=== PATIENT | male | born 1975 | race African-American/Black ===

== ENCOUNTER 2023-09-12 11:47 | Outpatient (AMB) | payer OTHER, SELFPAY ==
--- NOTE | 2023-09-12 12:12 | HO.NEPHOV ---
HPI HPI Comments History of Present Illness Details I had the privilege of seeing Gregorio in follow-up of his donor renal transplant on 06/06/23 . 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 He had no panel reactive antibody. He underwent induction with Thymoglobulin. He had delayed graft function needing for treatments of renal replacement therapy posttransplant. His stent was removed on 06/25/2023. His serum creatinine was 2.6 on 08/01/2023. CMV status of the donor and recipient were positive. EBV status of donor and recipient were positive. Hepatitis B core antibody was negative for donor and recipient and hepatitis C antibody was negative for donor and recipient.His polyomavirus Status included BK PCR Quantitative <43 plasma, not detected urine 08/05/23. Transplant renal biopsy was done on 07/22 which showed - Mild interstitial inflammation and mild tubulitis, cannot exclude suspicious for acute T-cell mediated rejection. (see comment) with patchy acute tubular injury with reactive/reparative nuclear change. Glomeruli with no significant microvascular inflammation. Had mild interstitial edema, with no significant fibrosis or tubular atrophy. Arteries and arterioles with no significant change. He had Prospera done on 09/06/2023. DSA was negative on 08/21/23. His immunosuppression included envarsus 6mg taken with ketoconazole 200mg qd & myfortic 720/720mg. His prophylaxis therapy includes bactrim qd d/c 12/06/23, mycelex d/c 09/05/23 & valcyte qod d/c 12/06/23.His diabetes remains out of control & has endocrine appointment. His DSA is lower and plan to have transplant biopsy end of November [facility] Medical History (Updated 09/26/23 @ 07:28 by Ricki Porras MD) YEVGENIY (obstructive sleep apnea) Hypertension CHF (congestive heart failure) Asthma A-fib Type 2 diabetes mellitus ESRD (end stage renal disease) Surgical History (Updated 09/12/23 @ 12:45 by Ricki Porras MD) Kidney transplant status Vital Signs 09/12/23 12:13 Height 5 ft 11 in Weight 256 lb BMI 35.7 BP 120/62 Blood Pressure Location Lt brachial Position Sitting Pulse 73 Pulse Source Pulse Oximeter Pulse Oximetry (%) 99 Oxygen Delivery Method Room Air Physical Exam Vital Signs: Last Vital Signs Pulse 73 09/12/23 12:13 BP 120/62 09/12/23 12:13 Pulse Ox 99 09/12/23 12:13 Oxygen Delivery Method Room Air 09/12/23 12:13 BMI result Body Mass Index 35.7 Const General: comfortable and no acute distress Orientation/consciousness: patient oriented x3 HEENT Head: Yes normocephalic Mouth: Normal oral and palatal mucosa present Eyes EOM: EOMs intact bilaterally Neck Neck: Yes supple Resp Auscultation: clear to auscultation bilaterally Cardio Jugular venous distension: no JVD Rate: regular rate GI Palpation (GI): Soft to palpation Auscultation: normal bowel sounds General: Yes no CVA tenderness Back/Spine/Pelvis Back: no CVA tenderness Skin General skin exam: no rashes or lesions noted Neuro General: patient oriented x3 and moves all extremities Extrem General: Yes no pedal edema Assessment & Plan Assessment & Plan (1) Renal transplant recipient: Code(s): Z94.0 - Kidney transplant status (2) Hypertension: Code(s): I10 - Essential (primary) hypertension Qualifiers: Hypertension type: primary hypertension Qualified Code(s): I10 - Essential (primary) hypertension Plan 1. Allograft function: relatively stable; DSA improved; biopsy negative for rejection end of June 2. Immunosuppression: stable; no changes pending levels 3. BP and volume status: stable; no changes 4. Metabolic parameters: potassium had been high --> on resin; monitor; low K diet; some may be due to high glucose 5. Hematologic parameters: hemoglobin is fine; continue to monitor 6. Prophylaxis/infection: stable; no changes 7. Urologic: no active issues 8. Other: ongoing issues with hyperglycemia in spite of increases in insulin; going to follow up with endocrine; needs dietary changes; unable to exercise due to orthopedic issues and pain. Orders: Orders Aspartate Amino Transferase 09/12/23 Z94.0 - Kidney transplant status Alanine Aminotransferase 09/12/23 Z94.0 - Kidney transplant status Electrolytes 09/12/23 Z94.0 - Kidney transplant status Creatinine 09/12/23 Z94.0 - Kidney transplant status Complete Blood Count Auto Diff 09/12/23 Z94.0 - Kidney transplant status Calcium 09/12/23 Z94.0 - Kidney transplant status Blood Urea Nitrogen 09/12/23 Z94.0 - Kidney transplant status Magnesium 09/12/23 Z94.0 - Kidney transplant status Phosphorus 09/12/23 Z94.0 - Kidney transplant status Tacrolimus Prograf 09/12/23 Z94.0 - Kidney transplant status Coding Level of Care Code Est Pt Level 4 (43161) Diagnoses Renal transplant recipient Z94.0 Primary hypertension I10 Hypertension type: primary hypertension Results Reviewed Nephrology Results: No Data to Display
[2023-09-12 12:13] VITALS: BP 120/62; PULSE 73; O2SAT 99; BMI 35.7
== END 2023-09-12 12:59 | disposition home or self-care (01) ==
LOC: HO.HKAS 11:47
PROVIDERS: Visit Provider Internal Medicine Nephrology
DX: Z94.0 Kidney transplant status (principal); I10 Essential (primary) hypertension
CPT/HCPCS: 99214

== ENCOUNTER → 2023-09-12 11:47 | Outpatient (BNVA) | payer OTHER, SELFPAY | PROVIDERS: Visit Provider Internal Medicine Nephrology | DX: I12.0 Hypertensive chronic kidney disease with stage 5 chronic kidney disease or end stage renal disease (principal); E11.21 Type 2 diabetes mellitus with diabetic nephropathy; E11.22 Type 2 diabetes mellitus with diabetic chronic kidney disease; N18.6 End stage renal disease; Z94.0 Kidney transplant status | CPT/HCPCS: 99212 ==

== ENCOUNTER 2023-09-26 10:59 | Outpatient (REF) | payer OTHER, SELFPAY ==
[2023-09-26 16:48] LABS: MANUAL DIFF FLAG NO
[2023-09-26 16:56] LABS: Basophils Percent Auto 0.8 % (0-2); Eosinophils Absolute Auto 0.1 X10*3/uL (0.0-0.4); Eosinophils Percent Auto 1.9 % (0-4); Hematocrit 42.5 % (42.0-52.0); Imm Gran Abs Auto 0.02 X10*3/uL (0.00-0.03); Imm Gran Pct Auto 0.4 % (0.0-0.4); Lymphocytes Absolute Auto 0.7 X10*3/uL (1.2-4.9); Lymphocytes Percent Auto 14.7 % (20-40); Mean Corpuscular HGB Conc 32.9 g/dl (31.0-36.0); Mean Corpuscular Hemoglobin 26.9 pg (27.0-33.0); Mean Corpuscular Volume 81.6 fL (80.0-98.0); Mean Platelet Volume 10.6 fL (9.4-12.4); Monocytes Absolute Auto 0.6 X10*3/uL (0.1-1.2); Monocytes Percent Auto 12.2 % (2-11); Neutrophils Absolute Auto 3.4 x10*3/uL (2.0-8.3); Platelet Count 143 X10*3/uL (160-400); Red Blood Count 5.21 X10*6/uL (4.60-5.80); Red Cell Distribution Width 13.1 % (11.0-16.0); White Blood Count 4.8 X10*3/uL (4.8-10.8)
[2023-09-26 17:07] LABS: Alanine Aminotransferase 54 U/L (0-40); Anion Gap 10 (12-20); Aspartate Amino Transferase 20 U/L (5-37); Blood Urea Nitrogen 44 mg/dL (9-16); Calcium 9.6 mg/dL (8.4-10.2); Carbon Dioxide 22 mmol/L (22-29); Chloride 107 mmol/L (96-108); Estimated Glomerular Filt Rate 28; Magnesium 1.9 mg/dL (1.6-2.6); Phosphorus 3.1 mg/dL (2.7-4.5); Potassium 4.8 mmol/L (3.3-5.1); Sodium 134 mmol/L (135-145)
== END 2023-09-26 11:00 | disposition home or self-care (01) ==
LOC: HO.HKASLDS 10:59
PROVIDERS: Visit Provider Internal Medicine Nephrology
DX: Z94.0 Kidney transplant status (principal)
CPT/HCPCS: 36415; 80051; 80197; 82310; 82565; 83735; 84100; 84450; 84460; 84520; 85025

== ENCOUNTER 2023-10-01 10:10 | Outpatient (AMB) | payer OTHER, SELFPAY ==
[2023-10-01 10:15] VITALS: BP 130/80; PULSE 72; O2SAT 99; BMI 35.3
--- NOTE | 2023-10-01 10:15 | HO.NEPHOV ---
HPI HPI Comments History of Present Illness Details I had the privilege of seeing Gregorio in follow-up of his donor renal transplant on 06/06/23 . 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 He had no panel reactive antibody. He underwent induction with Thymoglobulin. He had delayed graft function needing for treatments of renal replacement therapy post transplant. His stent was removed on 06/25/2023. His serum creatinine was 2.6 on 08/01/2023. CMV status of the donor and recipient were positive. EBV status of donor and recipient were positive. Hepatitis B core antibody was negative for donor and recipient and hepatitis C antibody was negative for donor and recipient.His polyomavirus Status included BK PCR Quantitative <43 plasma, not detected urine 08/05/23. Transplant renal biopsy was done on 07/22 which showed - Mild interstitial inflammation and mild tubulitis, cannot exclude suspicious for acute T-cell mediated rejection. (see comment) with patchy acute tubular injury with reactive/reparative nuclear change. Glomeruli with no significant microvascular inflammation. Had mild interstitial edema, with no significant fibrosis or tubular atrophy. Arteries and arterioles with no significant change. He had Prospera done on 09/06/2023. DSA was negative on 08/21/23. His immunosuppression included envarsus 6mg taken with ketoconazole 200mg qd & myfortic 720/720mg. His prophylaxis therapyincludes bactrim qd d/c 12/06/23 (mycelex d/c 09/05/23 )& valcyte qod d/c 12/06/23.His diabetes remains out of control & has endocrine appointment. His DSA is lower and plan to have transplant biopsy end of November. His recent tacrolimus level was 22 ( he had taken medication before lab work). His serum creatinine has gone up marginally. [facility] Medical History YEVGENIY (obstructive sleep apnea) Hypertension CHF (congestive heart failure) Asthma A-fib Type 2 diabetes mellitus ESRD (end stage renal disease) Surgical History Kidney transplant status Social History (Updated 10/01/23 @ 10:25 by Melissa Garcia MA) Alcohol intake: former Patient Tobacco Use Status: Former Tobacco user Use of substances other than those prescribed or required for medical reasons: No Vital Signs 10/01/23 10:15 Height 5 ft 11 in Weight 253 lb 4 oz BMI 35.3 BP 130/80 Blood Pressure Location Rt brachial Position Sitting Pulse 72 Pulse Source Pulse Oximeter Pulse Oximetry (%) 99 Oxygen Delivery Method Room Air Physical Exam Vital Signs: Last Vital Signs Pulse 72 10/01/23 10:15 BP 140/80 H 10/01/23 10:15 Pulse Ox 99 10/01/23 10:15 Oxygen Delivery Method Room Air 10/01/23 10:15 BMI result Body Mass Index 35.3 Const General: comfortable and no acute distress Orientation/consciousness: patient oriented x3 HEENT Head: Yes normocephalic Mouth: Normal oral and palatal mucosa present Eyes EOM: EOMs intact bilaterally Neck Neck: Yes supple Resp Auscultation: clear to auscultation bilaterally Cardio Jugular venous distension: no JVD Rate: regular rate GI Palpation (GI): Soft to palpation Auscultation: normal bowel sounds General: Yes no CVA tenderness Back/Spine/Pelvis Back: no CVA tenderness Skin General skin exam: no rashes or lesions noted Neuro General: patient oriented x3 and moves all extremities Extrem General: Yes no pedal edema Assessment & Plan Assessment & Plan (1) Hypertension: Code(s): I10 - Essential (primary) hypertension Qualifiers: Hypertension type: primary hypertension Qualified Code(s): I10 - Essential (primary) hypertension (2) Renal transplant recipient: Code(s): Z94.0 - Kidney transplant status Plan 1. Allograft function: Serum creatinine up. Labs ALEK; DSA improved; biopsy negative for rejection end of June; ? high tacrolimus levels. Management is based on evolving data 2. Immunosuppression: stable; changes pending levels 3. BP and volume status: stable; no changes 4. Metabolic parameters: potassium had been high --> on resin; monitor; low K diet; some may be due to high glucose 5. Hematologic parameters: hemoglobin is fine; continue to monitor 6. Prophylaxis/infection: stable; no changes 7. Urologic: no active issues 8. Other: ongoing issues with hyperglycemia in spite of increases in insulin; going to follow up with endocrine; needs dietary changes; unable to exercise due to orthopedic issues and pain. Orders: Orders Creatinine Today I10 - Essential (primary) hypertension, Z94.0 - Kidney transplant status Electrolytes Today I10 - Essential (primary) hypertension, Z94.0 - Kidney transplant status Tacrolimus Prograf Today I10 - Essential (primary) hypertension, Z94.0 - Kidney transplant status Blood Urea Nitrogen Today I10 - Essential (primary) hypertension, Z94.0 - Kidney transplant status Coding Level of Care Code Est Pt Level 4 (58255) Diagnoses Primary hypertension I10 Hypertension type: primary hypertension Renal transplant recipient Z94.0 Results Reviewed Nephrology Results: Hgb 14.0 g/dl (14.0-18.0) 09/26/23 WBC 4.8 X10*3/uL (4.8-10.8) 09/26/23 Plt Count 143 X10*3/uL (160-400) L 09/26/23 Sodium 134 mmol/L (135-145) L 09/26/23 Potassium 4.8 mmol/L (3.3-5.1) 09/26/23 Chloride 107 mmol/L (96-108) 09/26/23 Carbon Dioxide 22 mmol/L (22-29) 09/26/23 BUN 44 mg/dL (9-16) H 09/26/23 Creatinine 2.44 mg/dL (0.5-1.4) H 09/26/23 Calcium 9.6 mg/dL (8.4-10.2) 09/26/23 Phosphorus 3.1 mg/dL (2.7-4.5) 09/26/23
== END 2023-10-01 10:49 | disposition home or self-care (01) ==
PROVIDERS: Visit Provider Internal Medicine Nephrology
DX: I10 Essential (primary) hypertension (principal); Z94.0 Kidney transplant status
CPT/HCPCS: 99214

== ENCOUNTER → 2023-10-01 10:10 | Outpatient (BNVA) | payer OTHER, SELFPAY | PROVIDERS: Visit Provider Internal Medicine Nephrology | DX: I10 Essential (primary) hypertension (principal); Z94.0 Kidney transplant status | CPT/HCPCS: 99212 ==

== ENCOUNTER 2023-10-02 09:26 | Outpatient (REF) | payer OTHER, SELFPAY ==
[2023-10-02 17:46] LABS: Anion Gap 14 (12-20); Blood Urea Nitrogen 51 mg/dL (9-16); Carbon Dioxide 20 mmol/L (22-29); Chloride 106 mmol/L (96-108); Estimated Glomerular Filt Rate 26; Sodium 134 mmol/L (135-145)
[2023-10-02 17:56] LABS: Potassium 6.2 mmol/L (3.3-5.1)
[2023-10-03 12:28] LABS: Tacrolimus Prograf 11.6 mcg/L
== END 2023-10-02 09:27 | disposition home or self-care (01) ==
LOC: HO.HKASLDS 09:26
PROVIDERS: Visit Provider Internal Medicine Nephrology
DX: I10 Essential (primary) hypertension (principal); Z94.0 Kidney transplant status
CPT/HCPCS: 36415; 80051; 80197; 82565; 84520

== ENCOUNTER 2023-10-16 11:12 | Outpatient (REF) | payer OTHER, SELFPAY ==
[2023-10-16 17:15] LABS: Anion Gap 11 (12-20); Blood Urea Nitrogen 33 mg/dL (9-16); Carbon Dioxide 21 mmol/L (22-29); Chloride 111 mmol/L (96-108); Estimated Glomerular Filt Rate 32; Potassium 5.2 mmol/L (3.3-5.1); Sodium 138 mmol/L (135-145)
[2023-10-17 09:54] LABS: Tacrolimus Prograf 6.5 mcg/L
== END 2023-10-16 11:13 | disposition home or self-care (01) ==
LOC: HO.HKASLDS 11:12
PROVIDERS: Visit Provider Internal Medicine Nephrology
DX: I10 Essential (primary) hypertension (principal); Z94.0 Kidney transplant status; E87.5 Hyperkalemia
CPT/HCPCS: 36415; 80051; 80197; 82565; 84520

== ENCOUNTER 2023-10-22 09:30 | Outpatient (AMB) | payer OTHER, SELFPAY ==
[2023-10-22 09:39] VITALS: BP 130/88; PULSE 85; O2SAT 99; BMI 35.9
--- NOTE | 2023-10-22 09:39 | HO.NEPHOV ---
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 He had no panel reactive antibody. He underwent induction with Thymoglobulin. He had delayed graft function needing for treatments of renal replacement therapy post transplant. His stent was removed on 06/25/2023. His serum creatinine was 2.6 on 08/01/2023. CMV status of the donor and recipient were positive. EBV status of donor and recipient were positive. Hepatitis B core antibody was negative for donor and recipient and hepatitis C antibody was negative for donor and recipient.His polyomavirus Status included BK PCR Quantitative <43 plasma, not detected urine 08/05/23. Transplant renal biopsy was done on 07/22 which showed - Mild interstitial inflammation and mild tubulitis, cannot exclude suspicious for acute T-cell mediated rejection. (see comment) with patchy acute tubular injury with reactive/reparative nuclear change. Glomeruli with no significant microvascular inflammation. Had mild interstitial edema, with no significant fibrosis or tubular atrophy. Arteries and arterioles with no significant change. He had Prospera done on 09/06/2023. DSA was negative on 08/21/23. His immunosuppression included envarsus 6mg taken with ketoconazole 200mg qd & myfortic 720/720mg. His prophylaxis therapyincludes bactrim qd d/c 12/06/23 (mycelex d/c 09/05/23 )& valcyte qod d/c 12/06/23.His diabetes remains out of control & has endocrine appointment. His DSA is lower and plan to have transplant biopsy end of November. His recent tacrolimus level is better. His serum creatinine improved. He has been having middle ear symptoms. [facility] Medical History YEVGENIY (obstructive sleep apnea) Hypertension CHF (congestive heart failure) Asthma A-fib Type 2 diabetes mellitus ESRD (end stage renal disease) Surgical History Kidney transplant status Social History Alcohol intake: former Patient Tobacco Use Status: Former Tobacco user Physical Exam Vital Signs: Last Vital Signs Pulse 85 10/22/23 09:39 BP 130/88 10/22/23 09:39 Pulse Ox 99 10/22/23 09:39 Oxygen Delivery Method Room Air 10/22/23 09:39 BMI result Body Mass Index 35.9 Const General: comfortable and no acute distress Orientation/consciousness: patient oriented x3 HEENT Head: Yes normocephalic Mouth: Normal oral and palatal mucosa present Eyes EOM: EOMs intact bilaterally Neck Neck: Yes supple Resp Auscultation: clear to auscultation bilaterally Cardio Jugular venous distension: no JVD Rate: regular rate GI Palpation (GI): Soft to palpation Auscultation: normal bowel sounds General: Yes no CVA tenderness Back/Spine/Pelvis Back: no CVA tenderness Skin General skin exam: no rashes or lesions noted Neuro General: patient oriented x3 and moves all extremities Extrem General: Yes no pedal edema Results Reviewed Nephrology Results: Hgb 14.0 g/dl (14.0-18.0) 09/26/23 WBC 4.8 X10*3/uL (4.8-10.8) 09/26/23 Plt Count 143 X10*3/uL (160-400) L 09/26/23 Sodium 138 mmol/L (135-145) 10/16/23 Potassium 5.2 mmol/L (3.3-5.1) H 10/16/23 Chloride 111 mmol/L (96-108) H 10/16/23 Carbon Dioxide 21 mmol/L (22-29) L 10/16/23 BUN 33 mg/dL (9-16) H 10/16/23 Creatinine 2.18 mg/dL (0.5-1.4) H 10/16/23 Calcium 9.6 mg/dL (8.4-10.2) 09/26/23 Phosphorus 3.1 mg/dL (2.7-4.5) 09/26/23 Assessment & Plan Assessment & Plan (1) Hyperkalemia: Code(s): E87.5 - Hyperkalemia Category: Medical (2) Hypertension: Code(s): I10 - Essential (primary) hypertension Category: Medical Qualifiers: Hypertension type: primary hypertension Qualified Code(s): I10 - Essential (primary) hypertension (3) Renal transplant recipient: Code(s): Z94.0 - Kidney transplant status Category: Surgical Plan 1. Allograft function: Serum creatinine improved; DSA improved; biopsy negative for rejection end of June; Tacrolimus levels ordered for next week. Management is based on evolving data 2. Immunosuppression: Increased tacro to 5 mg ; changes pending levels 3. BP and volume status: stable; no changes 4. Metabolic parameters: potassium had been high --> on resin; monitor; low K diet; some may be due to high glucose 5. Hematologic parameters: hemoglobin is fine; continue to monitor 6. Prophylaxis/infection: stable; no changes- will be D/Errol next month 7. Urologic: no active issues 8. Other: ongoing issues with hyperglycemia in spite of increases in insulin; going to follow up with endocrine; needs dietary changes; unable to exercise due to orthopedic issues and pain. Orders: Orders Blood Urea Nitrogen Today E87.5 - Hyperkalemia, I10 - Essential (primary) hypertension, Z94.0 - Kidney transplant status Creatinine Today E87.5 - Hyperkalemia, I10 - Essential (primary) hypertension, Z94.0 - Kidney transplant status Tacrolimus Prograf 1 Week E87.5 - Hyperkalemia, I10 - Essential (primary) hypertension, Z94.0 - Kidney transplant status Calcium Today E87.5 - Hyperkalemia, I10 - Essential (primary) hypertension, Z94.0 - Kidney transplant status Electrolytes Today E87.5 - Hyperkalemia, I10 - Essential (primary) hypertension, Z94.0 - Kidney transplant status Coding Level of Care Code Est Pt Level 4 (27690) Diagnoses Hyperkalemia E87.5 Primary hypertension I10 Hypertension type: primary hypertension Renal transplant recipient Z94.0
== END 2023-10-22 10:05 | disposition home or self-care (01) ==
PROVIDERS: Visit Provider Internal Medicine Nephrology
DX: E87.5 Hyperkalemia (principal); I10 Essential (primary) hypertension; Z94.0 Kidney transplant status
CPT/HCPCS: 99214

== ENCOUNTER → 2023-10-22 09:30 | Outpatient (BNVA) | payer OTHER, SELFPAY | PROVIDERS: Visit Provider Internal Medicine Nephrology | DX: E87.5 Hyperkalemia (principal); I10 Essential (primary) hypertension; Z94.0 Kidney transplant status | CPT/HCPCS: 99212 ==

== ENCOUNTER 2023-10-31 14:32 | Outpatient (REF) | payer OTHER, SELFPAY ==
[2023-10-31 18:07] LABS: Anion Gap 13 (12-20); Blood Urea Nitrogen 45 mg/dL (9-16); Calcium 9.8 mg/dL (8.4-10.2); Carbon Dioxide 17 mmol/L (22-29); Chloride 107 mmol/L (96-108); Estimated Glomerular Filt Rate 33; Potassium 5.2 mmol/L (3.3-5.1); Sodium 132 mmol/L (135-145)
[2023-11-01 11:44] LABS: Tacrolimus Prograf 7.5 mcg/L
== END 2023-10-31 14:33 | disposition home or self-care (01) ==
LOC: HO.HKASLDS 14:32
PROVIDERS: Visit Provider Internal Medicine Nephrology
DX: Z94.0 Kidney transplant status (principal); I10 Essential (primary) hypertension; E87.5 Hyperkalemia
CPT/HCPCS: 36415; 80051; 80197; 82310; 82565; 84520

== ENCOUNTER 2023-11-05 09:52 | Outpatient (AMB) | payer OTHER, SELFPAY ==
--- NOTE | 2023-11-05 10:12 | HO.NEPHOV ---
Vital Signs 11/05/23 10:13 Height 5 ft 11 in Weight 259 lb 6 oz BMI 36.2 BP 136/82 Blood Pressure Location Rt brachial Position Sitting Pulse 88 Pulse Source Pulse Oximeter Pulse Oximetry (%) 99 Oxygen Delivery Method Room Air Intake Visit Reasons: Transplant patient, 2 wks follow up/ Confirmed Resolution Analyst Required: No Accompanied by: Self / Same As Patient Allergies amoxicillin Allergy (Mild, Verified 11/05/23 10:15) Unknown lisinopril Allergy (Mild, Verified 11/05/23 10:15) Unknown Seasonal Allergies Allergy (Mild, Verified 11/05/23 10:15) Unknown HPI Comments Details: I had the privilege of seeing Gregorio in follow-up of his donor renal transplant on 06/06/23 . 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 He had no panel reactive antibody. He underwent induction with Thymoglobulin. He had delayed graft function needing for treatments of renal replacement therapy post transplant. His stent was removed on 06/25/2023. His serum creatinine was 2.6 on 08/01/2023. CMV status of the donor and recipient were positive. EBV status of donor and recipient were positive. Hepatitis B core antibody was negative for donor and recipient and hepatitis C antibody was negative for donor and recipient.His polyomavirus Status included BK PCR Quantitative <43 plasma, not detected urine 08/05/23. Transplant renal biopsy was done on 07/22 which showed - Mild interstitial inflammation and mild tubulitis, cannot exclude suspicious for acute T-cell mediated rejection. (see comment) with patchy acute tubular injury with reactive/reparative nuclear change. Glomeruli with no significant microvascular inflammation. Had mild interstitial edema, with no significant fibrosis or tubular atrophy. Arteries and arterioles with no significant change. He had Prospera done on 09/06/2023. DSA was negative on 08/21/23. His immunosuppression included envarsus 6mg taken with ketoconazole 200mg qd & myfortic 720/720mg. His prophylaxis therapyincludes bactrim qd d/c 12/06/23 (mycelex d/c 09/05/23 )& valcyte qod d/c 12/06/23.His diabetes remains out of control & has endocrine appointment. His DSA is lower and plan to have transplant biopsy end of November. His recent tacrolimus level is better. His serum creatinine improved. [facility] Medical History YEVGENIY (obstructive sleep apnea) Hypertension CHF (congestive heart failure) Asthma A-fib Type 2 diabetes mellitus ESRD (end stage renal disease) Surgical History Kidney transplant status Social History Alcohol intake: former Patient Tobacco Use Status: Former Tobacco user Physical Exam Vital Signs: Last Vital Signs Pulse 88 11/05/23 10:13 BP 136/82 11/05/23 10:13 Pulse Ox 99 11/05/23 10:13 Oxygen Delivery Method Room Air 11/05/23 10:13 BMI result Body Mass Index 36.2 Const General: comfortable and no acute distress Orientation/consciousness: patient oriented x3 HEENT Head: Yes normocephalic Mouth: Normal oral and palatal mucosa present Eyes EOM: EOMs intact bilaterally Neck Neck: Yes supple Resp Auscultation: clear to auscultation bilaterally Cardio Jugular venous distension: no JVD Rate: regular rate GI Palpation (GI): Soft to palpation Auscultation: normal bowel sounds General: Yes no CVA tenderness Back/Spine/Pelvis Back: no CVA tenderness Skin General skin exam: no rashes or lesions noted Neuro General: patient oriented x3 and moves all extremities Extrem General: Yes no pedal edema Results Reviewed Nephrology Results: Hgb 14.0 g/dl (14.0-18.0) 09/26/23 WBC 4.8 X10*3/uL (4.8-10.8) 09/26/23 Plt Count 143 X10*3/uL (160-400) L 09/26/23 Sodium 132 mmol/L (135-145) L 10/31/23 Potassium 5.2 mmol/L (3.3-5.1) H 10/31/23 Chloride 107 mmol/L (96-108) 10/31/23 Carbon Dioxide 17 mmol/L (22-29) L 10/31/23 BUN 45 mg/dL (9-16) H 10/31/23 Creatinine 2.13 mg/dL (0.5-1.4) H 10/31/23 Calcium 9.8 mg/dL (8.4-10.2) 10/31/23 Phosphorus 3.1 mg/dL (2.7-4.5) 09/26/23 Assessment & Plan Assessment & Plan (1) Renal transplant recipient: Code(s): Z94.0 - Kidney transplant status Category: Surgical (2) Hypertension: Code(s): I10 - Essential (primary) hypertension Category: Medical Qualifiers: Hypertension type: primary hypertension Qualified Code(s): I10 - Essential (primary) hypertension (3) Hyperkalemia: Code(s): E87.5 - Hyperkalemia Category: Medical (4) Metabolic acidosis: Code(s): E87.20 - Acidosis, unspecified Category: Medical Plan 1. Allograft function: Serum creatinine improved/ stable; DSA improved; Shall repeat at next visit; biopsy negative for rejection end of June; Tacrolimus levels ordered again. Management is based on evolving data 2. Immunosuppression: C/W tacro @ 5 mg ; changes pending levels 3. BP and volume status: stable; no changes 4. Metabolic parameters: potassium had been high --> on resin; monitor; low K diet; some may be due to high glucose 5. Hematologic parameters: hemoglobin is fine; continue to monitor 6. Prophylaxis/infection: stable; no changes- will be D/Errol next month 7. Urologic: no active issues 8. Other: ongoing issues with hyperglycemia in spite of increases in insulin; going to follow up with endocrine; needs dietary changes; unable to exercise due to orthopedic issues and pain. Orders: Orders Other Ref Test - Misc Today E87.20 - Acidosis, unspecified, E87.5 - Hyperkalemia, I10 - Essential (primary) hypertension, Z94.0 - Kidney transplant status Complete Blood Count Auto Diff Today E87.20 - Acidosis, unspecified, E87.5 - Hyperkalemia, I10 - Essential (primary) hypertension, Z94.0 - Kidney transplant status Blood Urea Nitrogen Today E87.20 - Acidosis, unspecified, E87.5 - Hyperkalemia, I10 - Essential (primary) hypertension, Z94.0 - Kidney transplant status Electrolytes Today E87.20 - Acidosis, unspecified, E87.5 - Hyperkalemia, I10 - Essential (primary) hypertension, Z94.0 - Kidney transplant status Calcium Today E87.20 - Acidosis, unspecified, E87.5 - Hyperkalemia, I10 - Essential (primary) hypertension, Z94.0 - Kidney transplant status Tacrolimus Prograf Today E87.20 - Acidosis, unspecified, E87.5 - Hyperkalemia, I10 - Essential (primary) hypertension, Z94.0 - Kidney transplant status Magnesium Today E87.20 - Acidosis, unspecified, E87.5 - Hyperkalemia, I10 - Essential (primary) hypertension, Z94.0 - Kidney transplant status Phosphorus Today E87.20 - Acidosis, unspecified, E87.5 - Hyperkalemia, I10 - Essential (primary) hypertension, Z94.0 - Kidney transplant status Creatinine Today E87.20 - Acidosis, unspecified, E87.5 - Hyperkalemia, I10 - Essential (primary) hypertension, Z94.0 - Kidney transplant status Coding Level of Care Code Est Pt Level 4 (10565) Diagnoses Renal transplant recipient Z94.0 Primary hypertension I10 Hypertension type: primary hypertension Hyperkalemia E87.5 Metabolic acidosis E87.20
[2023-11-05 10:13] VITALS: BP 136/82; PULSE 88; O2SAT 99; BMI 36.2
== END 2023-11-05 10:30 | disposition home or self-care (01) ==
PROVIDERS: Visit Provider Internal Medicine Nephrology
DX: Z94.0 Kidney transplant status (principal); I10 Essential (primary) hypertension; E87.5 Hyperkalemia; E87.20 Acidosis, unspecified
CPT/HCPCS: 99214

== ENCOUNTER → 2023-11-05 09:52 | Outpatient (BNVA) | payer OTHER, SELFPAY | PROVIDERS: Visit Provider Internal Medicine Nephrology | DX: I12.0 Hypertensive chronic kidney disease with stage 5 chronic kidney disease or end stage renal disease (principal); E11.22 Type 2 diabetes mellitus with diabetic chronic kidney disease; N18.6 End stage renal disease; E87.5 Hyperkalemia; E87.20 Acidosis, unspecified; Z94.0 Kidney transplant status | CPT/HCPCS: 99212 ==

== ENCOUNTER 2023-11-21 11:08 | Outpatient (REF) | payer OTHER, SELFPAY ==
[2023-11-21 17:23] LABS: MANUAL DIFF FLAG NO
[2023-11-21 17:33] LABS: Basophils Percent Auto 0.6 % (0-2); Eosinophils Absolute Auto 0.1 X10*3/uL (0.0-0.4); Eosinophils Percent Auto 1.7 % (0-4); Hemoglobin 16.4 g/dl (14.0-18.0); Imm Gran Abs Auto 0.01 X10*3/uL (0.00-0.03); Imm Gran Pct Auto 0.2 % (0.0-0.4); Lymphocytes Absolute Auto 0.7 X10*3/uL (1.2-4.9); Lymphocytes Percent Auto 12.5 % (20-40); Mean Corpuscular HGB Conc 32.8 g/dl (31.0-36.0); Mean Corpuscular Hemoglobin 26.4 pg (27.0-33.0); Mean Corpuscular Volume 80.4 fL (80.0-98.0); Mean Platelet Volume 10.6 fL (9.4-12.4); Monocytes Absolute Auto 0.5 X10*3/uL (0.1-1.2); Monocytes Percent Auto 9.5 % (2-11); Neutrophils Percent Auto 75.5 % (45-73); Platelet Count 143 X10*3/uL (160-400); Red Blood Count 6.22 X10*6/uL (4.60-5.80); Red Cell Distribution Width 14.3 % (11.0-16.0); White Blood Count 5.4 X10*3/uL (4.8-10.8)
[2023-11-21 17:53] LABS: Anion Gap 14 (12-20); Blood Urea Nitrogen 36 mg/dL (9-16); Calcium 9.8 mg/dL (8.4-10.2); Carbon Dioxide 18 mmol/L (22-29); Chloride 109 mmol/L (96-108); Estimated Glomerular Filt Rate 33; Magnesium 1.8 mg/dL (1.6-2.6); Phosphorus 2.5 mg/dL (2.7-4.5); Potassium 4.8 mmol/L (3.3-5.1); Sodium 136 mmol/L (135-145)
== END 2023-11-21 11:09 | disposition home or self-care (01) ==
LOC: HO.HKASLDS 11:08
PROVIDERS: Visit Provider Internal Medicine Nephrology
DX: E87.20 Acidosis, unspecified (principal); E87.5 Hyperkalemia; I10 Essential (primary) hypertension; Z94.0 Kidney transplant status
CPT/HCPCS: 36415; 80051; 80197; 82310; 82565; 83735; 84100; 84520; 85025

== ENCOUNTER 2023-11-26 11:52 | Outpatient (AMB) | payer OTHER, SELFPAY ==
--- NOTE | 2023-11-26 12:21 | HO.NEPHOV_ITS ---
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 He had no panel reactive antibody. He underwent induction with Thymoglobulin. He had delayed graft function needing for treatments of renal replacement therapy post transplant. His stent was removed on 06/25/2023. His serum creatinine was 2.6 on 08/01/2023. CMV status of the donor and recipient were positive. EBV status of donor and recipient were positive. Hepatitis B core antibody was negative for donor and recipient and hepatitis C antibody was negative for donor and recipient.His polyomavirus Status included BK PCR Quantitative <43 plasma, not detected urine 08/05/23. Transplant renal biopsy was done on 07/22 which showed - Mild interstitial inflammation and mild tubulitis, cannot exclude suspicious for acute T-cell mediated rejection. (see comment) with patchy acute tubular injury with reactive/reparative nuclear change. Glomeruli with no significant microvascular inflammation. Had mild interstitial edema, with no significant fibrosis or tubular atrophy. Arteries and arterioles with no significant change. He had Prospera done on 09/06/2023. DSA was negative on 08/21/23. His immunosuppression included envarsus 6mg taken with ketoconazole 200mg qd & myfortic 720/720mg. His prophylaxis therapyincludes bactrim qd d/c 12/06/23 (mycelex d/c 09/05/23 )& valcyte qod d/c 12/06/23.His diabetes remains out of control & has endocrine appointment. His DSA is lower and plan to have transplant biopsy end of November. His recent tacrolimus level is better. His serum creatinine has improved and is stable. [facility] Medical History YEVGENIY (obstructive sleep apnea) Hypertension CHF (congestive heart failure) Asthma A-fib Type 2 diabetes mellitus ESRD (end stage renal disease) Surgical History Kidney transplant status Social History Alcohol intake: former Patient Tobacco Use Status: Former Tobacco user Physical Exam Vital Signs: Last Vital Signs BP 110/70 11/26/23 12:23 Pulse Ox 97 11/26/23 12:23 Oxygen Delivery Method Room Air 11/26/23 12:23 BMI result Body Mass Index 36.0 Const General: comfortable and no acute distress Orientation/consciousness: patient oriented x3 HEENT Head: Yes normocephalic Mouth: Normal oral and palatal mucosa present Eyes EOM: EOMs intact bilaterally Neck Neck: Yes supple Resp Auscultation: clear to auscultation bilaterally Cardio Jugular venous distension: no JVD Rate: regular rate GI Palpation (GI): Soft to palpation Auscultation: normal bowel sounds General: Yes no CVA tenderness Back/Spine/Pelvis Back: no CVA tenderness Skin General skin exam: no rashes or lesions noted Neuro General: patient oriented x3 and moves all extremities Extrem General: Yes no pedal edema Results Reviewed Nephrology Results: Hgb 16.4 g/dl (14.0-18.0) 11/21/23 WBC 5.4 X10*3/uL (4.8-10.8) 11/21/23 Plt Count 143 X10*3/uL (160-400) L 11/21/23 Sodium 136 mmol/L (135-145) 11/21/23 Potassium 4.8 mmol/L (3.3-5.1) 11/21/23 Chloride 109 mmol/L (96-108) H 11/21/23 Carbon Dioxide 18 mmol/L (22-29) L 11/21/23 BUN 36 mg/dL (9-16) H 11/21/23 Creatinine 2.13 mg/dL (0.5-1.4) H 11/21/23 Calcium 9.8 mg/dL (8.4-10.2) 11/21/23 Phosphorus 2.5 mg/dL (2.7-4.5) L 11/21/23 Assessment & Plan Assessment & Plan (1) Metabolic acidosis: Code(s): E87.20 - Acidosis, unspecified Category: Medical (2) Hypertension: Code(s): I10 - Essential (primary) hypertension Category: Medical Qualifiers: Hypertension type: primary hypertension Qualified Code(s): I10 - Essential (primary) hypertension (3) Renal transplant recipient: Code(s): Z94.0 - Kidney transplant status Category: Surgical Plan 1. Allograft function: Serum creatinine improved/ stable; DSA improved; Shall repeat at next visit; biopsy negative for rejection end of June; Renal biopsy end of the month. Tacrolimus levels ordered again. Management is based on evolving data 2. Immunosuppression: C/W tacro @ 5 mg ; changes pending levels 3. BP and volume status: stable; no changes 4. Metabolic parameters: potassium had been high --> on resin; monitor; low K diet; some may be due to high glucose 5. Hematologic parameters: hemoglobin is fine; continue to monitor 6. Prophylaxis/infection: stable; no changes- will be D/Errol next month 7. Urologic: no active issues 8. Other: ongoing issues with hyperglycemia in spite of increases in insulin; going to follow up with endocrine; needs dietary changes; unable to exercise due to orthopedic issues and pain. Orders: Orders Tacrolimus Prograf Today E87.20 - Acidosis, unspecified, I10 - Essential (primary) hypertension, Z94.0 - Kidney transplant status Blood Urea Nitrogen Today E87.20 - Acidosis, unspecified, I10 - Essential (primary) hypertension, Z94.0 - Kidney transplant status Electrolytes Today E87.20 - Acidosis, unspecified, I10 - Essential (primary) hypertension, Z94.0 - Kidney transplant status Complete Blood Count Auto Diff Today E87.20 - Acidosis, unspecified, I10 - Essential (primary) hypertension, Z94.0 - Kidney transplant status Other Ref Test - Misc Today E87.20 - Acidosis, unspecified, I10 - Essential (primary) hypertension, Z94.0 - Kidney transplant status Creatinine Today E87.20 - Acidosis, unspecified, I10 - Essential (primary) hypertension, Z94.0 - Kidney transplant status Prothrombin Time INR Today E87.20 - Acidosis, unspecified, I10 - Essential (primary) hypertension, Z94.0 - Kidney transplant status Coding Level of Care Code Est Pt Level 4 (49392) Diagnoses Metabolic acidosis E87.20 Primary hypertension I10 Hypertension type: primary hypertension Renal transplant recipient Z94.0
[2023-11-26 12:23] VITALS: BP 110/70; O2SAT 97; BMI 36.0
== END 2023-11-26 12:42 | disposition home or self-care (01) ==
PROVIDERS: PCP Physician Assistant; Visit Provider Internal Medicine Nephrology
DX: E87.20 Acidosis, unspecified (principal); I10 Essential (primary) hypertension; Z94.0 Kidney transplant status
CPT/HCPCS: 99214

== ENCOUNTER → 2023-11-26 11:52 | Outpatient (BNVA) | payer OTHER, SELFPAY | PROVIDERS: Visit Provider Internal Medicine Nephrology | DX: E87.20 Acidosis, unspecified (principal); I10 Essential (primary) hypertension; Z94.0 Kidney transplant status | CPT/HCPCS: 99212 ==

== ENCOUNTER 2023-12-05 10:58 | Outpatient (REF) | payer OTHER, SELFPAY ==
[2023-12-05 14:28] LABS: MANUAL DIFF FLAG NO
[2023-12-05 14:52] LABS: Anion Gap 9 (12-20); Blood Urea Nitrogen 33 mg/dL (9-16); Carbon Dioxide 23 mmol/L (22-29); Chloride 106 mmol/L (96-108); Estimated Glomerular Filt Rate 31; Potassium 4.8 mmol/L (3.3-5.1); Sodium 133 mmol/L (135-145)
[2023-12-05 14:56] LABS: INTERNATIONAL NORM RATIO 1.1 (0.9-1.1); Prothrombin Time 12.8 SEC (11.1-13.3)
[2023-12-05 14:57] LABS: Basophils Percent Auto 0.7 % (0-2); Eosinophils Absolute Auto 0.1 X10*3/uL (0.0-0.4); Eosinophils Percent Auto 1.3 % (0-4); Hematocrit 49.1 % (42.0-52.0); Hemoglobin 16.6 g/dl (14.0-18.0); Imm Gran Abs Auto 0.05 X10*3/uL (0.00-0.03); Imm Gran Pct Auto 0.8 % (0.0-0.4); Lymphocytes Absolute Auto 0.8 X10*3/uL (1.2-4.9); Lymphocytes Percent Auto 12.6 % (20-40); Mean Corpuscular HGB Conc 33.8 g/dl (31.0-36.0); Mean Corpuscular Hemoglobin 26.8 pg (27.0-33.0); Mean Corpuscular Volume 79.2 fL (80.0-98.0); Mean Platelet Volume 10.4 fL (9.4-12.4); Monocytes Absolute Auto 0.6 X10*3/uL (0.1-1.2); Monocytes Percent Auto 9.5 % (2-11); Neutrophils Absolute Auto 4.6 x10*3/uL (2.0-8.3); Neutrophils Percent Auto 75.1 % (45-73); Platelet Count 163 X10*3/uL (160-400); Red Cell Distribution Width 14.7 % (11.0-16.0); White Blood Count 6.1 X10*3/uL (4.8-10.8)
[2023-12-07 09:28] LABS: Tacrolimus Prograf 9.3 mcg/L
== END 2023-12-05 10:59 | disposition home or self-care (01) ==
LOC: HO.HKASLDS 10:58
PROVIDERS: Visit Provider Internal Medicine Nephrology
DX: E87.20 Acidosis, unspecified (principal); I10 Essential (primary) hypertension; Z94.0 Kidney transplant status
CPT/HCPCS: 36415; 80051; 80197; 82565; 84520; 85025; 85610

== ENCOUNTER 2023-12-10 11:45 | Outpatient (AMB) | payer OTHER, SELFPAY ==
[2023-12-10 12:19] VITALS: BP 132/80; PULSE 102; O2SAT 98; BMI 35.3
--- NOTE | 2023-12-10 12:19 | HO.NEPHOV_ITS ---
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 He had no panel reactive antibody. He underwent induction with Thymoglobulin. He had delayed graft function needing for treatments of renal replacement therapy post transplant. His stent was removed on 06/25/2023. His serum creatinine was 2.6 on 08/01/2023. CMV status of the donor and recipient were positive. EBV status of donor and recipient were positive. Hepatitis B core antibody was negative for donor and recipient and hepatitis C antibody was negative for donor and recipient.His polyomavirus Status included BK PCR Quantitative <43 plasma, not detected urine 08/05/23. Transplant renal biopsy was done on 07/22 which showed - Mild interstitial inflammation and mild tubulitis, cannot exclude suspicious for acute T-cell mediated rejection. (see comment) with patchy acute tubular injury with reactive/reparative nuclear change. Glomeruli with no significant microvascular inflammation. Had mild interstitial edema, with no significant fibrosis or tubular atrophy. Arteries and arterioles with no significant change. He had Prospera done on 09/06/2023. DSA was negative on 08/21/23. His i mmunosuppression included envarsus 6mg taken with ketoconazole 200mg qd & myfortic 720/720mg. His prophylaxis therapyincludes bactrim qd d/c 12/06/23 (mycelex d/c 09/05/23 )& valcyte qod d/c 12/06/23.His diabetes remains out of control & has endocrine appointment. His DSA is lower and plan to have transplant biopsy end of November. His recent tacrolimus level is better. His serum creatinine has improved and is stable. [facility] Medical History YEVGENIY (obstructive sleep apnea) Hypertension CHF (congestive heart failure) Asthma A-fib Type 2 diabetes mellitus ESRD (end stage renal disease) Surgical History Kidney transplant status Social History Alcohol intake: former Patient Tobacco Use Status: Former Tobacco user Physical Exam Vital Signs: Last Vital Signs Pulse 102 H 12/10/23 12:19 BP 132/80 12/10/23 12:19 Pulse Ox 98 12/10/23 12:19 Oxygen Delivery Method Room Air 12/10/23 12:19 BMI result Body Mass Index 35.3 Const General: comfortable and no acute distress Orientation/consciousness: patient oriented x3 HEENT Head: Yes normocephalic Mouth: Normal oral and palatal mucosa present Eyes EOM: EOMs intact bilaterally Neck Neck: Yes supple Resp Auscultation: clear to auscultation bilaterally Cardio Jugular venous distension: no JVD Rate: regular rate GI Palpation (GI): Soft to palpation Auscultation: normal bowel sounds General: Yes no CVA tenderness Back/Spine/Pelvis Back: no CVA tenderness Skin General skin exam: no rashes or lesions noted Neuro General: patient oriented x3 and moves all extremities Extrem General: Yes no pedal edema Results Reviewed Nephrology Results: Hgb 16.6 g/dl (14.0-18.0) 12/05/23 WBC 6.1 X10*3/uL (4.8-10.8) 12/05/23 Plt Count 163 X10*3/uL (160-400) 12/05/23 Sodium 133 mmol/L (135-145) L 12/05/23 Potassium 4.8 mmol/L (3.3-5.1) 12/05/23 Chloride 106 mmol/L (96-108) 12/05/23 Carbon Dioxide 23 mmol/L (22-29) 12/05/23 BUN 33 mg/dL (9-16) H 12/05/23 Creatinine 2.24 mg/dL (0.5-1.4) H 12/05/23 Calcium 9.8 mg/dL (8.4-10.2) 11/21/23 Phosphorus 2.5 mg/dL (2.7-4.5) L 11/21/23 Assessment & Plan Assessment & Plan (1) Renal transplant recipient: Code(s): Z94.0 - Kidney transplant status Category: Surgical (2) Hypertension: Code(s): I10 - Essential (primary) hypertension Category: Medical Qualifiers: Hypertension type: primary hypertension Qualified Code(s): I10 - Essential (primary) hypertension (3) Hyperkalemia: Code(s): E87.5 - Hyperkalemia Category: Medical (4) Metabolic acidosis: Code(s): E87.20 - Acidosis, unspecified Category: Medical Plan 1. Allograft function: Serum creatinine improved/ stable; DSA negative ; biopsy negative for rejection end of June; Hold Renal biopsy for now. Tacrolimus levels ordered again. Management is based on evolving data 2. Immunosuppression: C/W tacro @ 5 mg ; changes pending levels 3. BP and volume status: stable; no changes 4. Metabolic parameters: potassium had been high --> on resin; monitor; low K diet; some may be due to high glucose 5. Hematologic parameters: hemoglobin is fine; continue to monitor 6. Prophylaxis/infection: stable; D/Errol Valcyte and Bactrim 7. Urologic: no active issues Orders: Orders Complete Blood Count Auto Diff Today E87.20 - Acidosis, unspecified, E87.5 - Hyperkalemia, I10 - Essential (primary) hypertension, Z94.0 - Kidney transplant status Creatinine Today E87.20 - Acidosis, unspecified, E87.5 - Hyperkalemia, I10 - Essential (primary) hypertension, Z94.0 - Kidney transplant status Blood Urea Nitrogen Today E87.20 - Acidosis, unspecified, E87.5 - Hyperkalemia, I10 - Essential (primary) hypertension, Z94.0 - Kidney transplant status Electrolytes Today E87.20 - Acidosis, unspecified, E87.5 - Hyperkalemia, I10 - Essential (primary) hypertension, Z94.0 - Kidney transplant status Phosphorus Today E87.20 - Acidosis, unspecified, E87.5 - Hyperkalemia, I10 - Essential (primary) hypertension, Z94.0 - Kidney transplant status Tacrolimus Prograf Today E87.20 - Acidosis, unspecified, E87.5 - Hyperkalemia, I10 - Essential (primary) hypertension, Z94.0 - Kidney transplant status Calcium Today E87.20 - Acidosis, unspecified, E87.5 - Hyperkalemia, I10 - Essential (primary) hypertension, Z94.0 - Kidney transplant status Magnesium Today E87.20 - Acidosis, unspecified, E87.5 - Hyperkalemia, I10 - Essential (primary) hypertension, Z94.0 - Kidney transplant status Coding Level of Care Code Est Pt Level 4 (71517) Diagnoses Renal transplant recipient Z94.0 Primary hypertension I10 Hypertension type: primary hypertension Hyperkalemia E87.5 Metabolic acidosis E87.20
== END 2023-12-10 12:33 | disposition home or self-care (01) ==
PROVIDERS: PCP Physician Assistant; Visit Provider Internal Medicine Nephrology
DX: Z94.0 Kidney transplant status (principal); I10 Essential (primary) hypertension; E87.5 Hyperkalemia; E87.20 Acidosis, unspecified
CPT/HCPCS: 99214

== ENCOUNTER → 2023-12-10 11:45 | Outpatient (BNVA) | payer OTHER, SELFPAY | PROVIDERS: PCP Physician Assistant; Visit Provider Internal Medicine Nephrology | DX: I10 Essential (primary) hypertension (principal); E87.5 Hyperkalemia; E87.20 Acidosis, unspecified; Z94.0 Kidney transplant status | CPT/HCPCS: 99212 ==

== ENCOUNTER 2024-01-02 13:06 | Outpatient (REF) | payer OTHER, SELFPAY ==
[2024-01-02 17:26] LABS: MANUAL DIFF FLAG NO
[2024-01-02 17:47] LABS: Basophils Absolute Auto 0.1 X10*3/uL (0.0-0.2); Basophils Percent Auto 0.8 % (0-2); Eosinophils Absolute Auto 0.3 X10*3/uL (0.0-0.4); Eosinophils Percent Auto 4.3 % (0-4); Hematocrit 46.5 % (42.0-52.0); Hemoglobin 15.6 g/dl (14.0-18.0); Imm Gran Abs Auto 0.04 X10*3/uL (0.00-0.03); Imm Gran Pct Auto 0.6 % (0.0-0.4); Lymphocytes Absolute Auto 0.9 X10*3/uL (1.2-4.9); Lymphocytes Percent Auto 13.8 % (20-40); Mean Corpuscular HGB Conc 33.5 g/dl (31.0-36.0); Mean Corpuscular Hemoglobin 26.9 pg (27.0-33.0); Mean Platelet Volume 11.2 fL (9.4-12.4); Monocytes Absolute Auto 0.9 X10*3/uL (0.1-1.2); Monocytes Percent Auto 14.7 % (2-11); Neutrophils Absolute Auto 4.2 x10*3/uL (2.0-8.3); Neutrophils Percent Auto 65.8 % (45-73); Platelet Count 232 X10*3/uL (160-400); Red Blood Count 5.81 X10*6/uL (4.60-5.80); White Blood Count 6.3 X10*3/uL (4.8-10.8)
[2024-01-02 18:00] LABS: Blood Urea Nitrogen 31 mg/dL (9-16); Estimated Glomerular Filt Rate 29; Magnesium 1.8 mg/dL (1.6-2.6); Phosphorus 2.6 mg/dL (2.7-4.5)
[2024-01-03 12:29] LABS: Tacrolimus Prograf 15.7 mcg/L
== END 2024-01-02 13:07 | disposition home or self-care (01) ==
LOC: HO.HKASLDS 13:06
PROVIDERS: Visit Provider Internal Medicine Nephrology
DX: I10 Essential (primary) hypertension (principal); E87.5 Hyperkalemia; E87.20 Acidosis, unspecified; Z94.0 Kidney transplant status
CPT/HCPCS: 36415; 80197; 82310; 82565; 83735; 84100; 84520; 85025

== ENCOUNTER 2024-01-09 11:01 | Outpatient (AMB) | payer OTHER, SELFPAY ==
--- NOTE | 2024-01-09 11:02 | HO.NEPHOV_ITS ---
Vital Signs 01/09/24 11:03 Height 5 ft 11 in Weight 247 lb BMI 34.4 BP 132/68 Blood Pressure Location Rt brachial Position Sitting Pulse 82 Pulse Source Pulse Oximeter Pulse Oximetry (%) 99 Oxygen Delivery Method Room Air Intake Visit Reasons: 1 mon follow up/ Conf Bi Technical Lead Required: No Accompanied by: Self / Same As Patient Allergies amoxicillin Allergy (Mild, Verified 01/09/24 11:05) Unknown lisinopril Allergy (Mild, Verified 01/09/24 11:05) Unknown Seasonal Allergies Allergy (Mild, Verified 01/09/24 11:05) Unknown HPI Comments Details: I had the privilege of seeing Gregorio in follow-up of his donor renal transplant on 06/06/23 . 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 He had no panel reactive antibody. He underwent induction with Thymoglobulin. He had delayed graft function needing for treatments of renal replacement therapy post transplant. His stent was removed on 06/25/2023. His serum creatinine was 2.6 on 08/01/2023. CMV status of the donor and recipient were positive. EBV status of donor and recipient were positive. Hepatitis B core antibody was negative for donor and recipient and hepatitis C antibody was negative for donor and recipient.His polyomavirus Status included BK PCR Quantitative <43 plasma, not detected urine 08/05/23. Transplant renal biopsy was done on 07/22 which showed - Mild interstitial inflammation and mild tubulitis, cannot exclude suspicious for acute T-cell mediated rejection. (see comment) with patchy acute tubular injury with reactive/reparative nuclear change. Glomeruli with no significant microvascular inflammation. Had mild interstitial edema, with no significant fibrosis or tubular atrophy. Arteries and arterioles with no significant change. He had Prospera done on 09/06/2023. DSA was negative on 08/21/23. His immunosuppression included envarsus 6mg taken with ketoconazole 200mg qd & myfortic 720/720mg. His prophylaxis therapy includeed bactrim qd d/kylee 12/06/23 (mycelex d/kylee 09/05/23 )& valcyte qod d/kylee 12/06/23. His recent tacrolimus level is better. His serum creatinine has improved and is stable. [facility] Medical History YEVGENIY (obstructive sleep apnea) Hypertension CHF (congestive heart failure) Asthma A-fib Type 2 diabetes mellitus ESRD (end stage renal disease) Surgical History Kidney transplant status Social History Alcohol intake: former Patient Tobacco Use Status: Former Tobacco user Physical Exam Vital Signs: Last Vital Signs Pulse 82 01/09/24 11:03 BP 132/68 01/09/24 11:03 Pulse Ox 99 01/09/24 11:03 Oxygen Delivery Method Room Air 01/09/24 11:03 BMI result Body Mass Index 34.4 Const General: comfortable and no acute distress Orientation/consciousness: patient oriented x3 HEENT Head: Yes normocephalic Mouth: Normal oral and palatal mucosa present Eyes EOM: EOMs intact bilaterally Resp Auscultation: clear to auscultation bilaterally Cardio Jugular venous distension: no JVD Rate: regular rate GI Palpation (GI): Soft to palpation Auscultation: normal bowel sounds General: Yes no CVA tenderness Back/Spine/Pelvis Back: no CVA tenderness Skin General skin exam: no rashes or lesions noted Neuro General: patient oriented x3 and moves all extremities Extrem General: Yes no pedal edema Results Reviewed Nephrology Results: Hgb 15.6 g/dl (14.0-18.0) 01/02/24 WBC 6.3 X10*3/uL (4.8-10.8) 01/02/24 Plt Count 232 X10*3/uL (160-400) 01/02/24 Sodium 133 mmol/L (135-145) L 12/05/23 Potassium 4.8 mmol/L (3.3-5.1) 12/05/23 Chloride 106 mmol/L (96-108) 12/05/23 Carbon Dioxide 23 mmol/L (22-29) 12/05/23 BUN 31 mg/dL (9-16) H 01/02/24 Creatinine 2.36 mg/dL (0.5-1.4) H 01/02/24 Calcium 10.0 mg/dL (8.4-10.2) 01/02/24 Phosphorus 2.6 mg/dL (2.7-4.5) L 01/02/24 Assessment & Plan Assessment & Plan (1) Renal transplant recipient: Code(s): Z94.0 - Kidney transplant status Category: Surgical (2) Hypertension: Code(s): I10 - Essential (primary) hypertension Category: Medical Qualifiers: Hypertension type: primary hypertension Qualified Code(s): I10 - Essential (primary) hypertension (3) Hyperkalemia: Code(s): E87.5 - Hyperkalemia Category: Medical (4) Metabolic acidosis: Code(s): E87.20 - Acidosis, unspecified Category: Medical Plan 1. Allograft function: Serum creatinine improved stable; DSA negative ; biopsy negative for rejection end of June; Hold Renal biopsy for now. Tacrolimus levels ordered again after reducing dose to 4 mg daily. Management is based on evolving data 2. Immunosuppression: C/W tacro @ 4 mg ; changes pending levels 3. BP and volume status: stable; no changes 4. Metabolic parameters: potassium had been high --> on resin; monitor; low K diet; some may be due to high glucose 5. Hematologic parameters: hemoglobin is fine; continue to monitor 6. Prophylaxis/infection: stable; D/Kylee Valcyte and Bactrim 7. Urologic: no active issues Last Prospera low risk for rejection Orders: Orders Tacrolimus Prograf 1 Month E87.20 - Acidosis, unspecified, E87.5 - Hyperkalemia, I10 - Essential (primary) hypertension, Z94.0 - Kidney transplant status Complete Blood Count Auto Diff 1 Month E87.20 - Acidosis, unspecified, E87.5 - Hyperkalemia, I10 - Essential (primary) hypertension, Z94.0 - Kidney transplant status Creatinine 1 Month E87.20 - Acidosis, unspecified, E87.5 - Hyperkalemia, I10 - Essential (primary) hypertension, Z94.0 - Kidney transplant status Electrolytes 1 Month E87.20 - Acidosis, unspecified, E87.5 - Hyperkalemia, I10 - Essential (primary) hypertension, Z94.0 - Kidney transplant status Phosphorus 1 Month E87.20 - Acidosis, unspecified, E87.5 - Hyperkalemia, I10 - Essential (primary) hypertension, Z94.0 - Kidney transplant status Tacrolimus Prograf Today Z94.0 - Kidney transplant status Blood Urea Nitrogen 1 Month E87.20 - Acidosis, unspecified, E87.5 - Hyperkal emia, I10 - Essential (primary) hypertension, Z94.0 - Kidney transplant status Calcium 1 Month E87.20 - Acidosis, unspecified, E87.5 - Hyperkalemia, I10 - Essential (primary) hypertension, Z94.0 - Kidney transplant status Magnesium 1 Month E87.20 - Acidosis, unspecified, E87.5 - Hyperkalemia, I10 - Essential (primary) hypertension, Z94.0 - Kidney transplant status Medications: Changed From gabapentin 200 mg PO TID To gabapentin 200 mg (2 x 100 mg) PO TID 30 days 180 caps 3RF Coding Level of Care Code Est Pt Level 4 (69597) Diagnoses Renal transplant recipient Z94.0 Primary hypertension I10 Hypertension type: primary hypertension Hyperkalemia E87.5 Metabolic acidosis E87.20
[2024-01-09 11:03] VITALS: BP 132/68; PULSE 82; O2SAT 99; BMI 34.4
== END 2024-01-09 11:50 | disposition home or self-care (01) ==
PROVIDERS: PCP Physician Assistant; Visit Provider Internal Medicine Nephrology
DX: Z94.0 Kidney transplant status (principal); I10 Essential (primary) hypertension; E87.5 Hyperkalemia; E87.20 Acidosis, unspecified
CPT/HCPCS: 99214

== ENCOUNTER → 2024-01-09 11:01 | Outpatient (BNVA) | payer OTHER, SELFPAY | PROVIDERS: PCP Physician Assistant; Visit Provider Internal Medicine Nephrology | DX: E11.21 Type 2 diabetes mellitus with diabetic nephropathy (principal); I10 Essential (primary) hypertension; E87.5 Hyperkalemia; E87.20 Acidosis, unspecified; Z94.0 Kidney transplant status | CPT/HCPCS: 99212 ==

== ENCOUNTER 2024-01-16 13:54 | Outpatient (REF) | payer OTHER, SELFPAY ==
[2024-01-18 10:34] LABS: Tacrolimus Prograf 7.9 mcg/L
== END 2024-01-16 13:55 | disposition home or self-care (01) ==
LOC: HO.HKASLDS 13:54
PROVIDERS: Visit Provider Internal Medicine Nephrology
DX: Z94.0 Kidney transplant status (principal)
CPT/HCPCS: 36415; 80197

== ENCOUNTER 2024-01-30 13:12 | Outpatient (REF) | payer OTHER, SELFPAY ==
[2024-01-30 17:41] LABS: MANUAL DIFF FLAG NO
[2024-01-30 17:57] LABS: Basophils Percent Auto 0.5 % (0-2); Eosinophils Absolute Auto 0.1 X10*3/uL (0.0-0.4); Eosinophils Percent Auto 1.6 % (0-4); Hematocrit 46.6 % (42.0-52.0); Hemoglobin 15.5 g/dl (14.0-18.0); Imm Gran Abs Auto 0.02 X10*3/uL (0.00-0.03); Imm Gran Pct Auto 0.3 % (0.0-0.4); Lymphocytes Absolute Auto 0.9 X10*3/uL (1.2-4.9); Lymphocytes Percent Auto 13.8 % (20-40); Mean Corpuscular HGB Conc 33.3 g/dl (31.0-36.0); Mean Corpuscular Hemoglobin 26.8 pg (27.0-33.0); Mean Corpuscular Volume 80.5 fL (80.0-98.0); Mean Platelet Volume 11.4 fL (9.4-12.4); Monocytes Absolute Auto 0.7 X10*3/uL (0.1-1.2); Monocytes Percent Auto 11.1 % (2-11); Neutrophils Absolute Auto 4.5 x10*3/uL (2.0-8.3); Neutrophils Percent Auto 72.7 % (45-73); Platelet Count 168 X10*3/uL (160-400); Red Blood Count 5.79 X10*6/uL (4.60-5.80); Red Cell Distribution Width 14.2 % (11.0-16.0); White Blood Count 6.2 X10*3/uL (4.8-10.8)
[2024-01-30 18:18] LABS: Anion Gap 12 (12-20); Blood Urea Nitrogen 30 mg/dL (9-16); Calcium 10.1 mg/dL (8.4-10.2); Carbon Dioxide 26 mmol/L (22-29); Chloride 105 mmol/L (96-108); Estimated Glomerular Filt Rate 28; Magnesium 1.8 mg/dL (1.6-2.6); Phosphorus 2.7 mg/dL (2.7-4.5); Potassium 4.4 mmol/L (3.3-5.1); Sodium 139 mmol/L (135-145)
[2024-01-31 11:24] LABS: Tacrolimus Prograf 11.7 mcg/L
== END 2024-01-30 13:13 | disposition home or self-care (01) ==
LOC: HO.HKASLDS 13:12
PROVIDERS: Visit Provider Internal Medicine Nephrology
DX: E87.20 Acidosis, unspecified (principal); E87.5 Hyperkalemia; I10 Essential (primary) hypertension; Z94.0 Kidney transplant status
CPT/HCPCS: 36415; 80051; 80197; 82310; 82565; 83735; 84100; 84520; 85025

== ENCOUNTER 2024-02-06 10:38 | Outpatient (AMB) | payer OTHER, SELFPAY ==
--- NOTE | 2024-02-06 11:04 | HO.NEPHOV ---
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 He had no panel reactive antibody. He underwent induction with Thymoglobulin. He had delayed graft function needing for treatments of renal replacement therapy post transplant. His stent was removed on 06/25/2023. His serum creatinine was 2.6 on 08/01/2023. CMV status of the donor and recipient were positive. EBV status of donor and recipient were positive. Hepatitis B core antibody was negative for donor and recipient and hepatitis C antibody was negative for donor and recipient.His polyomavirus Status included BK PCR Quantitative <43 plasma, not detected urine 08/05/23. Transplant renal biopsy was done on 07/22 which showed - Mild interstitial inflammation and mild tubulitis, cannot exclude suspicious for acute T-cell mediated rejection. (see comment) with patchy acute tubular injury with reactive/reparative nuclear change. Glomeruli with no significant microvascular inflammation. Had mild interstitial edema, with no significant fibrosis or tubular atrophy. Arteries and arterioles with no significant change. He had Prospera done on 09/06/2023. DSA was negative on 08/21/23. His immunosuppression included envarsus 6mg taken with ketoconazole 200mg qd & myfortic 720/720mg. His prophylaxis therapy includeed bactrim qd d/kylee 12/06/23 (mycelex d/kylee 09/05/23 )& valcyte qod d/kylee 12/06/23. His recent tacrolimus level is better. His serum creatinine has improved and is stable. [facility] Medical History YEVGENIY (obstructive sleep apnea) Hypertension CHF (congestive heart failure) Asthma A-fib Type 2 diabetes mellitus ESRD (end stage renal disease) Surgical History Kidney transplant status Social History Alcohol intake: former Patient Tobacco Use Status: Former Tobacco user Review of Systems Const All systems reviewed & are unremarkable except as noted in HPI and below Physical Exam Vital Signs: Last Vital Signs Pulse 100 02/06/24 11:07 BP 122/70 02/06/24 11:07 Pulse Ox 98 02/06/24 11:07 Oxygen Delivery Method Room Air 02/06/24 11:07 BMI result Body Mass Index 34.6 Const General: comfortable and no acute distress Orientation/consciousness: patient oriented x3 HEENT Head: Yes normocephalic Mouth: Normal oral and palatal mucosa present Eyes EOM: EOMs intact bilaterally Neck Neck: Yes supple Resp Auscultation: clear to auscultation bilaterally Cardio Jugular venous distension: no JVD Rate: regular rate GI Palpation (GI): Soft to palpation Auscultation: normal bowel sounds General: Yes no CVA tenderness Back/Spine/Pelvis Back: no CVA tenderness Skin General skin exam: no rashes or lesions noted Neuro General: patient oriented x3 and moves all extremities Extrem General: Yes no pedal edema Results Reviewed Nephrology Results: Hgb 15.5 g/dl (14.0-18.0) 01/30/24 WBC 6.2 X10*3/uL (4.8-10.8) 01/30/24 Plt Count 168 X10*3/uL (160-400) 01/30/24 Sodium 139 mmol/L (135-145) 01/30/24 Potassium 4.4 mmol/L (3.3-5.1) 01/30/24 Chloride 105 mmol/L (96-108) 01/30/24 Carbon Dioxide 26 mmol/L (22-29) 01/30/24 BUN 30 mg/dL (9-16) H 01/30/24 Creatinine 2.43 mg/dL (0.5-1.4) H 01/30/24 Calcium 10.1 mg/dL (8.4-10.2) 01/30/24 Phosphorus 2.7 mg/dL (2.7-4.5) 01/30/24 Assessment & Plan Assessment & Plan (1) Renal transplant recipient: Code(s): Z94.0 - Kidney transplant status Category: Surgical (2) Hypertension: Code(s): I10 - Essential (primary) hypertension Category: Medical Qualifiers: Hypertension type: primary hypertension Qualified Code(s): I10 - Essential (primary) hypertension Plan 1. Allograft function: Serum creatinine improved stable; DSA negative ; biopsy negative for rejection end june; Hold Renal biopsy for now. Tacrolimus levels ordered again after reducing dose to 3 mg daily. Management is based on evolving data 2. Immunosuppression: C/W tacro @ 4 mg ; changes pending levels 3. BP and volume status: stable; no changes 4. Metabolic parameters: potassium had been high --> on resin once a week; monitor; low K diet; some may be due to high glucose 5. Hematologic parameters: hemoglobin is fine; continue to monitor 6. Prophylaxis/infection: stable; D/Kylee Valcyte and Bactrim 7. Urologic: no active issues Orders: Orders Tacrolimus Prograf Today I10 - Essential (primary) hypertension, Z94.0 - Kidney transplant status Complete Blood Count Auto Diff Today I10 - Essential (primary) hypertension, Z94.0 - Kidney transplant status Creatinine Today I10 - Essential (primary) hypertension, Z94.0 - Kidney transplant status Blood Urea Nitrogen Today I10 - Essential (primary) hypertension, Z94.0 - Kidney transplant status Electrolytes Today I10 - Essential (primary) hypertension, Z94.0 - Kidney transplant status Calcium Today I10 - Essential (primary) hypertension, Z94.0 - Kidney transplant status Coding Level of Care Code Est Pt Level 4 (97809) Diagnoses Renal transplant recipient Z94.0 Primary hypertension I10 Hypertension type: primary hypertension
[2024-02-06 11:07] VITALS: BP 122/70; PULSE 100; O2SAT 98; BMI 34.6
== END 2024-02-06 11:27 | disposition home or self-care (01) ==
PROVIDERS: PCP Physician Assistant; Visit Provider Internal Medicine Nephrology
DX: Z94.0 Kidney transplant status (principal); I10 Essential (primary) hypertension
CPT/HCPCS: 99214

== ENCOUNTER → 2024-02-06 10:38 | Outpatient (BNVA) | payer OTHER, SELFPAY | PROVIDERS: PCP Physician Assistant; Visit Provider Internal Medicine Nephrology | DX: I10 Essential (primary) hypertension (principal); Z94.0 Kidney transplant status | CPT/HCPCS: 99212 ==

== ENCOUNTER 2024-02-27 14:10 | Outpatient (REF) | payer OTHER, SELFPAY ==
[2024-02-27 17:46] LABS: MANUAL DIFF FLAG NO
[2024-02-27 18:01] LABS: Basophils Percent Auto 0.6 % (0-2); Eosinophils Absolute Auto 0.2 X10*3/uL (0.0-0.4); Eosinophils Percent Auto 2.2 % (0-4); Hematocrit 44.2 % (42.0-52.0); Hemoglobin 15.1 g/dl (14.0-18.0); Imm Gran Abs Auto 0.04 X10*3/uL (0.00-0.03); Imm Gran Pct Auto 0.6 % (0.0-0.4); Lymphocytes Absolute Auto 0.9 X10*3/uL (1.2-4.9); Lymphocytes Percent Auto 12.6 % (20-40); Mean Corpuscular HGB Conc 34.2 g/dl (31.0-36.0); Mean Corpuscular Hemoglobin 26.9 pg (27.0-33.0); Mean Corpuscular Volume 78.8 fL (80.0-98.0); Mean Platelet Volume 10.9 fL (9.4-12.4); Monocytes Absolute Auto 0.5 X10*3/uL (0.1-1.2); Monocytes Percent Auto 7.6 % (2-11); Neutrophils Absolute Auto 5.2 x10*3/uL (2.0-8.3); Neutrophils Percent Auto 76.4 % (45-73); Platelet Count 172 X10*3/uL (160-400); Red Blood Count 5.61 X10*6/uL (4.60-5.80); Red Cell Distribution Width 13.2 % (11.0-16.0); White Blood Count 6.8 X10*3/uL (4.8-10.8)
[2024-02-27 18:20] LABS: Anion Gap 11 (12-20); Blood Urea Nitrogen 36 mg/dL (9-16); Calcium 9.6 mg/dL (8.4-10.2); Carbon Dioxide 25 mmol/L (22-29); Chloride 100 mmol/L (96-108); Estimated Glomerular Filt Rate 25; Potassium 4.3 mmol/L (3.3-5.1); Sodium 132 mmol/L (135-145)
[2024-02-28 19:08] LABS: Tacrolimus Prograf 7.5 mcg/L
== END 2024-02-27 14:11 | disposition home or self-care (01) ==
LOC: HO.HKASLDS 14:10
PROVIDERS: Visit Provider Internal Medicine Nephrology
DX: I10 Essential (primary) hypertension (principal); Z94.0 Kidney transplant status
CPT/HCPCS: 36415; 80051; 80197; 82310; 82565; 84520; 85025

== ENCOUNTER 2024-03-05 15:01 | Outpatient (AMB) | payer OTHER, SELFPAY ==
[2024-03-05 15:11] VITALS: BP 122/60; PULSE 83; O2SAT 96; BMI 33.9
--- NOTE | 2024-03-05 15:11 | HO.NEPHOV_ITS ---
Vital Signs 03/05/24 15:11 Height 5 ft 11 in Weight 243 lb 6 oz BMI 33.9 BP 122/60 Blood Pressure Location Rt brachial Position Sitting Pulse 83 Pulse Source Pulse Oximeter Pulse Oximetry (%) 96 Oxygen Delivery Method Room Air Intake Visit Reasons: 1 mon transplant follow up- [facility] Snuff Box Finisher Required: No Accompanied by: Self / Same As Patient Allergies amoxicillin Allergy (Mild, Verified 03/05/24 15:13) Unknown lisinopril Allergy (Mild, Verified 03/05/24 15:13) Unknown Seasonal Allergies Allergy (Mild, Verified 03/05/24 15:13) Unknown HPI Comments Details: I had the privilege of seeing Gregorio in follow-up of his donor renal transplant on 06/06/23 . 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 He had no panel reactive antibody. He underwent induction with Thymoglobulin. He had delayed graft function ne [facility] for treatments of renal replacement therapy post transplant. His stent was removed on 06/25/2023. His serum creatinine was 2.6 on 08/01/2023. CMV status of the donor and recipient were positive. EBV status of donor and recipient were positive. Hepatitis B core antibody was negative for donor and recipient and hepatitis C antibody was negative for donor and recipient.His polyomavirus Status included BK PCR Quantitative <43 plasma, not detected urine 08/05/23. Transplant renal biopsy was done on 07/22 which showed - Mild interstitial inflammation and mild tubulitis, cannot exclude suspicious for acute T-cell mediated rejection. (see comment) with patchy acute tubular injury with reactive/reparative nuclear change. Glomeruli with no significant microvascular inflammation. Had mild interstitial edema, with no significant fibrosis or tubular atrophy. Arteries and arterioles with no significant change. He had Prospera done on 09/06/2023. DSA was negative on 08/21/23. His immun osuppression included envarsus 6mg taken with ketoconazole 200mg qd & myfortic 720/720mg. His prophylaxis therapy includeed bactrim qd d/kylee 12/06/23 (mycelex d/kylee 09/05/23 )& valcyte qod d/kylee 12/06/23. His recent tacrolimus level is stable [facility] Medical History YEVGENIY (obstructive sleep apnea) Hypertension CHF (congestive heart failure) Asthma A-fib Type 2 diabetes mellitus ESRD (end stage renal disease) Surgical History Kidney transplant status Social History Alcohol intake: former Patient Tobacco Use Status: Former Tobacco user Review of Systems Const All systems reviewed & are unremarkable except as noted in HPI and below Physical Exam Vital Signs: Last Vital Signs Pulse 83 03/05/24 15:11 BP 122/60 03/05/24 15:11 Pulse Ox 96 03/05/24 15:11 Oxygen Delivery Method Room Air 03/05/24 15:11 BMI result Body Mass Index 33.9 Const General: comfortable and no acute distress Orientation/consciousness: patient oriented x3 HEENT Head: Yes normocephalic Mouth: Normal oral and palatal mucosa present Eyes EOM: EOMs intact bilaterally Neck Neck: Yes supple Resp Auscultation: clear to auscultation bilaterally Cardio Jugular venous distension: no JVD Rate: regular rate GI Palpation (GI): Soft to palpation Auscultation: normal bowel sounds General: Yes no CVA tenderness Back/Spine/Pelvis Back: no CVA tenderness Skin General skin exam: no rashes or lesions noted Neuro General: patient oriented x3 and moves all extremities Extrem General: Yes no pedal edema Results Reviewed Nephrology Results: Hgb 15.1 g/dl (14.0-18.0) 02/27/24 WBC 6.8 X10*3/uL (4.8-10.8) 02/27/24 Plt Count 172 X10*3/uL (160-400) 02/27/24 Sodium 132 mmol/L (135-145) L 02/27/24 Potassium 4.3 mmol/L (3.3-5.1) 02/27/24 Chloride 100 mmol/L (96-108) 02/27/24 Carbon Dioxide 25 mmol/L (22-29) 02/27/24 BUN 36 mg/dL (9-16) H 02/27/24 Creatinine 2.74 mg/dL (0.5-1.4) H 02/27/24 Calcium 9.6 mg/dL (8.4-10.2) 02/27/24 Phosphorus 2.7 mg/dL (2.7-4.5) 01/30/24 Assessment & Plan Assessment & Plan (1) Renal transplant recipient: Code(s): Z94.0 - Kidney transplant status Category: Surgical (2) Hypertension: Code(s): I10 - Essential (primary) hypertension Category: Medical Qualifiers: Hypertension type: primary hypertension Qualified Code(s): I10 - Essential (primary) hypertension Plan 1. Allograft function: Serum creatinine marginally up ; DSA had been negative - repeat ordered ; biopsy negative for rejection end of June; Hold Renal biopsy for now. Tacrolimus levels stable. Management is based on evolving data- may need biopsy 2. Immunosuppression: C/W tacro @ 4 mg ; changes pending levels 3. BP and volume status: stable; no changes 4. Metabolic parameters: potassium had been high --> on resin once a week; monitor; low K diet; some may be due to high glucose 5. Hematologic parameters: hemoglobin is fine; continue to monitor 6. Prophylaxis/infection: stable; D/Kylee Valcyte and Bactrim 7. Urologic: no active issues Orders: Orders Other Ref Test - Misc 3 Weeks Z94.0 - Kidney transplant status Phosphorus 4 Weeks Z94.0 - Kidney transplant status Magnesium 4 Weeks Z94.0 - Kidney transplant status Other Ref Test - Misc 4 Weeks Z94.0 - Kidney transplant status Other Ref Test - Misc 5 Weeks Z94.0 - Kidney transplant status Complete Blood Count Auto Diff 4 Weeks Z94.0 - Kidney transplant status Prothrombin Time INR 4 Weeks Z94.0 - Kidney transplant status Creatinine 4 Weeks Z94.0 - Kidney transplant status Blood Urea Nitrogen 4 Weeks Z94.0 - Kidney transplant status Electrolytes 4 Weeks Z94.0 - Kidney transplant status Calcium 4 Weeks Z94.0 - Kidney transplant status Tacrolimus Prograf 4 Weeks Z94.0 - Kidney transplant status Coding Level of Care Code Est Pt Level 4 (12301) Diagnoses Renal transplant recipient Z94.0 Primary hypertension I10 Hypertension type: primary hypertension
== END 2024-03-05 15:44 | disposition home or self-care (01) ==
PROVIDERS: PCP Physician Assistant; Visit Provider Internal Medicine Nephrology
DX: Z94.0 Kidney transplant status (principal); I10 Essential (primary) hypertension
CPT/HCPCS: 99214

== ENCOUNTER → 2024-03-05 15:01 | Outpatient (BNVA) | payer OTHER, SELFPAY | PROVIDERS: PCP Physician Assistant; Visit Provider Internal Medicine Nephrology | DX: I10 Essential (primary) hypertension (principal); Z94.0 Kidney transplant status | CPT/HCPCS: 99212 ==

== ENCOUNTER 2024-04-02 13:15 | Outpatient (REF) | payer OTHER, SELFPAY ==
[2024-04-02 14:34] LABS: MANUAL DIFF FLAG NO
[2024-04-02 14:38] LABS: Basophils Percent Auto 0.4 % (0-2); Eosinophils Absolute Auto 0.1 X10*3/uL (0.0-0.4); Eosinophils Percent Auto 1.7 % (0-4); Hematocrit 43.7 % (42.0-52.0); Hemoglobin 14.9 g/dl (14.0-18.0); Imm Gran Abs Auto 0.03 X10*3/uL (0.00-0.03); Imm Gran Pct Auto 0.4 % (0.0-0.4); Lymphocytes Absolute Auto 0.9 X10*3/uL (1.2-4.9); Lymphocytes Percent Auto 12.9 % (20-40); Mean Corpuscular HGB Conc 34.1 g/dl (31.0-36.0); Mean Corpuscular Hemoglobin 26.8 pg (27.0-33.0); Mean Corpuscular Volume 78.7 fL (80.0-98.0); Mean Platelet Volume 10.8 fL (9.4-12.4); Monocytes Absolute Auto 0.8 X10*3/uL (0.1-1.2); Monocytes Percent Auto 10.8 % (2-11); Neutrophils Absolute Auto 5.3 x10*3/uL (2.0-8.3); Neutrophils Percent Auto 73.8 % (45-73); Platelet Count 184 X10*3/uL (160-400); Red Blood Count 5.55 X10*6/uL (4.60-5.80); Red Cell Distribution Width 13.8 % (11.0-16.0); White Blood Count 7.2 X10*3/uL (4.8-10.8)
[2024-04-02 14:42] LABS: INTERNATIONAL NORM RATIO 1.1 (0.9-1.1)
[2024-04-02 14:47] LABS: Anion Gap 10 (12-20); Blood Urea Nitrogen 24 mg/dL (9-16); Calcium 9.5 mg/dL (8.4-10.2); Carbon Dioxide 26 mmol/L (22-29); Chloride 104 mmol/L (96-108); Estimated Glomerular Filt Rate 36; Magnesium 1.8 mg/dL (1.6-2.6); Phosphorus 3.1 mg/dL (2.7-4.5); Potassium 4.4 mmol/L (3.3-5.1); Sodium 136 mmol/L (135-145)
[2024-04-04 03:07] LABS: Tacrolimus Prograf 5.2 mcg/L
== END 2024-04-02 13:16 | disposition home or self-care (01) ==
LOC: HO.HKASLDS 13:15
PROVIDERS: Visit Provider Internal Medicine Nephrology
DX: E87.5 Hyperkalemia (principal); I10 Essential (primary) hypertension; Z94.0 Kidney transplant status; E87.20 Acidosis, unspecified; E78.5 Hyperlipidemia, unspecified
CPT/HCPCS: 36415; 80051; 80197; 82310; 82565; 83735; 84100; 84520; 85025; 85610

== ENCOUNTER 2024-04-09 14:21 | Outpatient (AMB) | payer OTHER, SELFPAY ==
--- NOTE | 2024-04-09 14:22 | HO.NEPHOV ---
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 He had no panel reactive antibody. He underwent induction with Thymoglobulin. He had delayed graft function needing for treatments of renal replacement therapy post transplant. His stent was removed on 06/25/2023. His serum creatinine was 2.6 on 08/01/2023. CMV status of the donor and recipient were positive. EBV status of donor and recipient were positive. Hepatitis B core antibody was negative for donor and recipient and hepatitis C antibody was negative for donor and recipient.His polyomavirus Status included BK PCR Quantitative <43 plasma, not detected urine 08/05/23. Transplant renal biopsy was done on 07/22 which showed - Mild interstitial inflammation and mild tubulitis, cannot exclude suspicious for acute T-cell mediated rejection. (see comment) with patchy acute tubular injury with reactive/reparative nuclear change. Glomeruli with no significant microvascular inflammation. Had mild interstitial edema, with no significant fibrosis or tubular atrophy. Arteries and arterioles with no significant change. He had Prospera done on 09/06/2023. DSA was negative on 08/21/23. His immunosuppression included envarsus 6mg taken with ketoconazole 200mg qd & myfortic 720/720mg. His prophylaxis therapy includeed bactrim qd d/yklee 12/06/23 (mycelex d/kylee 09/05/23 )& valcyte qod d/kylee 12/06/23. His BS is improving [facility] Medical History YEVGENIY (obstructive sleep apnea) Hypertension CHF (congestive heart failure) Asthma A-fib Type 2 diabetes mellitus ESRD (end stage renal disease) Surgical History Kidney transplant status Social History Alcohol intake: former Patient Tobacco Use Status: Former Tobacco user Review of Systems Const All systems reviewed & are unremarkable except as noted in HPI and below Physical Exam Vital Signs: Last Vital Signs Pulse 83 04/09/24 14:26 BP 124/82 04/09/24 14:26 Pulse Ox 99 04/09/24 14:26 Oxygen Delivery Method Room Air 04/09/24 14:26 BMI result Body Mass Index 34.4 Const General: comfortable and no acute distress Orientation/consciousness: patient oriented x3 HEENT Head: Yes normocephalic Mouth: Normal oral and palatal mucosa present Eyes EOM: EOMs intact bilaterally Neck Neck: Yes supple Resp Auscultation: clear to auscultation bilaterally Cardio Jugular venous distension: no JVD Rate: regular rate GI Palpation (GI): Soft to palpation Auscultation: normal bowel sounds General: Yes no CVA tenderness Back/Spine/Pelvis Back: no CVA tenderness Skin General skin exam: no rashes or lesions noted Neuro General: patient oriented x3 and moves all extremities Extrem General: Yes no pedal edema Results Reviewed Nephrology Results: Hgb 14.9 g/dl (14.0-18.0) 04/02/24 WBC 7.2 X10*3/uL (4.8-10.8) 04/02/24 Plt Count 184 X10*3/uL (160-400) 04/02/24 Sodium 136 mmol/L (135-145) 04/02/24 Potassium 4.4 mmol/L (3.3-5.1) 04/02/24 Chloride 104 mmol/L (96-108) 04/02/24 Carbon Dioxide 26 mmol/L (22-29) 04/02/24 BUN 24 mg/dL (9-16) H 04/02/24 Creatinine 1.96 mg/dL (0.5-1.4) H 04/02/24 Calcium 9.5 mg/dL (8.4-10.2) 04/02/24 Phosphorus 3.1 mg/dL (2.7-4.5) 04/02/24 Assessment & Plan Assessment & Plan (1) Renal transplant recipient: Code(s): Z94.0 - Kidney transplant status Category: Surgical (2) Hypertension: Code(s): I10 - Essential (primary) hypertension Category: Medical Qualifiers: Hypertension type: primary hypertension Qualified Code(s): I10 - Essential (primary) hypertension Plan 1. Allograft function: Serum creatinine better ; DSA had been negative ; biopsy negative for rejection end of June; Hold Renal biopsy for now. Tacrolimus levels stable. Management is based on evolving data- does not need biopsy now 2. Immunosuppression: C/W tacro @ 3 mg 3. BP and volume status: stable; no changes 4. Metabolic parameters: potassium had been high --> on resin once a week; monitor; low K diet; some may be due to high glucose 5. Hematologic parameters: hemoglobin is fine; continue to monitor 6. Prophylaxis/infection: stable; D/Kylee Valcyte and Bactrim 7. Urologic: no active issues Orders: Orders Tacrolimus Prograf 2 Months Z94.0 - Kidney transplant status Creatinine 2 Months Z94.0 - Kidney transplant status Electrolytes 2 Months Z94.0 - Kidney transplant status Phosphorus 2 Months Z94.0 - Kidney transplant status Magnesium 2 Months Z94.0 - Kidney transplant status Blood Urea Nitrogen 2 Months Z94.0 - Kidney transplant status Calcium 2 Months Z94.0 - Kidney transplant status Other Ref Test - Misc 2 Months Z94.0 - Kidney transplant status Coding Level of Care Code Est Pt Level 4 (06864) Diagnoses Renal transplant recipient Z94.0 Primary hypertension I10 Hypertension type: primary hypertension
[2024-04-09 14:26] VITALS: BP 124/82; PULSE 83; O2SAT 99; BMI 34.4
== END 2024-04-09 14:43 | disposition home or self-care (01) ==
PROVIDERS: PCP Physician Assistant; Visit Provider Internal Medicine Nephrology
DX: Z94.0 Kidney transplant status (principal); I10 Essential (primary) hypertension
CPT/HCPCS: 99214

== ENCOUNTER → 2024-04-09 14:21 | Outpatient (BNVA) | payer OTHER, SELFPAY | PROVIDERS: PCP Physician Assistant; Visit Provider Internal Medicine Nephrology | DX: I10 Essential (primary) hypertension (principal); E11.21 Type 2 diabetes mellitus with diabetic nephropathy; Z94.0 Kidney transplant status | CPT/HCPCS: 99212 ==

== ENCOUNTER 2024-06-05 12:42 | Outpatient (REF) | payer OTHER, SELFPAY ==
[2024-06-05 14:16] LABS: Anion Gap 12 (12-20); Blood Urea Nitrogen 22 mg/dL (9-16); Calcium 9.5 mg/dL (8.4-10.2); Carbon Dioxide 26 mmol/L (22-29); Chloride 102 mmol/L (96-108); Estimated Glomerular Filt Rate 35; Magnesium 1.8 mg/dL (1.6-2.6); Phosphorus 2.9 mg/dL (2.7-4.5); Potassium 4.2 mmol/L (3.3-5.1); Sodium 136 mmol/L (135-145)
[2024-06-06 14:05] LABS: Tacrolimus Prograf 8.2 mcg/L
[2024-06-10 01:34] LABS: BK Virus DNA QN PCR Whole Bld Not Detected Log cps/mL; BK Virus DNA QN PCR Whole Bld Not Detected copies/mL
[2024-06-10 18:04] LABS: BK Virus DNA QL Urine Not Detected (Not Detected)
== END 2024-06-05 12:43 | disposition home or self-care (01) ==
LOC: HO.LAB 12:42
PROVIDERS: Visit Provider Internal Medicine Nephrology
DX: E87.5 Hyperkalemia (principal); I10 Essential (primary) hypertension; Z94.0 Kidney transplant status
CPT/HCPCS: 36415; 80051; 80197; 82310; 82565; 83735; 84100; 84520; 87798; 87799

== ENCOUNTER 2024-06-11 13:42 | Outpatient (AMB) | payer OTHER, SELFPAY ==
--- NOTE | 2024-06-11 14:06 | HO.NEPHOV_ITS ---
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 He had no panel reactive antibody. He underwent induction with Thymoglobulin. He had delayed graft function needi ng for treatments of renal replacement therapy post transplant. His stent was removed on 06/25/2023. His serum creatinine was 2.6 on 08/01/2023. CMV status of the donor and recipient were positive. EBV status of donor and recipient were positive. Hepatitis B core antibody was negative for donor and recipient and hepatitis C antibody was negative for donor and recipient.His polyomavirus Status included BK PCR Quantitative <43 plasma, not detected urine 08/05/23. Transplant renal biopsy was done on 07/22 which showed - Mild interstitial inflammation and mild tubulitis, cannot exclude suspicious for acute T-cell mediated rejection. (see comment) with patchy acute tubular injury with reactive/reparative nuclear change. Glomeruli with no significant microvascular inflammation. Had mild interstitial edema, with no significant fibrosis or tubular atrophy. Arteries and arterioles with no significant change. He had Prospera done on 09/06/2023. DSA was negative on 08/21/23. His immunosu ppression included envarsus 6mg taken with ketoconazole 200mg qd & myfortic 720/720mg. His prophylaxis therapy includeed bactrim qd d/kylee 12/06/23 (mycelex d/kylee 09/05/23 )& valcyte qod d/kylee 12/06/23. His BS is improving [facility] Medical History YEVGENIY (obstructive sleep apnea) Hypertension CHF (congestive heart failure) Asthma A-fib Type 2 diabetes mellitus ESRD (end stage renal disease) Surgical History Kidney transplant status Social History Alcohol intake: former Patient Tobacco Use Status: Former Tobacco user Review of Systems Const All systems reviewed & are unremarkable except as noted in HPI and below Physical Exam Vital Signs: Last Vital Signs BP 110/70 06/11/24 14:08 BMI result Body Mass Index 34.6 Const General: comfortable and no acute distress Orientation/consciousness: patient oriented x3 HEENT Head: Yes normocephalic Mouth: Normal oral and palatal mucosa present Eyes EOM: EOMs intact bilaterally Neck Neck: Yes supple Resp Auscultation: clear to auscultation bilaterally Cardio Jugular venous distension: no JVD Rate: regular rate GI Palpation (GI): Soft to palpation Auscultation: normal bowel sounds General: Yes no CVA tenderness Back/Spine/Pelvis Back: no CVA tenderness Skin General skin exam: no rashes or lesions noted Neuro General: patient oriented x3 and moves all extremities Extrem General: Yes no pedal edema Results Reviewed Nephrology Results: Hgb 14.9 g/dl (14.0-18.0) 04/02/24 WBC 7.2 X10*3/uL (4.8-10.8) 04/02/24 Plt Count 184 X10*3/uL (160-400) 04/02/24 Sodium 136 mmol/L (135-145) 06/05/24 Potassium 4.2 mmol/L (3.3-5.1) 06/05/24 Chloride 102 mmol/L (96-108) 06/05/24 Carbon Dioxide 26 mmol/L (22-29) 06/05/24 BUN 22 mg/dL (9-16) H 06/05/24 Creatinine 2.04 mg/dL (0.5-1.4) H 06/05/24 Calcium 9.5 mg/dL (8.4-10.2) 06/05/24 Phosphorus 2.9 mg/dL (2.7-4.5) 06/05/24 Assessment & Plan Assessment & Plan (1) Renal transplant recipient: Code(s): Z94.0 - Kidney transplant status Category: Surgical (2) Hypertension: Code(s): I10 - Essential (primary) hypertension Category: Medical Qualifiers: Hypertension type: primary hypertension Qualified Code(s): I10 - Essential (primary) hypertension Plan 1. Allograft function: Serum creatinine better ; DSA had been negative ; biopsy negative for rejection end of June; Hold Renal biopsy for now. Tacrolimus levels stable. Management is based on evolving data- does not need biopsy now 2. Immunosuppression: C/W tacro @ 3 mg 3. BP and volume status: stable; no changes 4. Metabolic parameters: potassium had been high --> on resin once a week; monitor; low K diet; some may be due to high glucose 5. Hematologic parameters: hemoglobin is fine; continue to monitor Orders: Orders Complete Blood Count Auto Diff 2 Months I10 - Essential (primary) hypertension, Z94.0 - Kidney transplant status Electrolytes 2 Months I10 - Essential (primary) hypertension, Z94.0 - Kidney transplant status Calcium 2 Months I10 - Essential (primary) hypertension, Z94.0 - Kidney transplant status Phosphorus 2 Months I10 - Essential (primary) hypertension, Z94.0 - Kidney transplant status Magnesium 2 Months I10 - Essential (primary) hypertension, Z94.0 - Kidney transplant status Creatinine 2 Months I10 - Essential (primary) hypertension, Z94.0 - Kidney transplant status Blood Urea Nitrogen 2 Months I10 - Essential (primary) hypertension, Z94.0 - Kidney transplant status Tacrolimus Prograf 2 Months I10 - Essential (primary) hypertension, Z94.0 - Kidney transplant status Coding Level of Care Code Est Pt Level 4 (39295) Diagnoses Renal transplant recipient Z94.0 Primary hypertension I10 Hypertension type: primary hypertension
[2024-06-11 14:08] VITALS: BP 110/70; BMI 34.6
== END 2024-06-11 14:23 | disposition home or self-care (01) ==
PROVIDERS: PCP Physician Assistant; Visit Provider Internal Medicine Nephrology
DX: Z94.0 Kidney transplant status (principal); I10 Essential (primary) hypertension
CPT/HCPCS: 99214

== ENCOUNTER → 2024-06-11 13:42 | Outpatient (BNVA) | payer OTHER, SELFPAY | PROVIDERS: PCP Physician Assistant; Visit Provider Internal Medicine Nephrology | DX: I10 Essential (primary) hypertension (principal); Z94.0 Kidney transplant status | CPT/HCPCS: 99212 ==

== ENCOUNTER 2024-08-06 11:46 | Outpatient (REF) | payer OTHER, SELFPAY ==
--- OUTSIDE RECORDS SUMMARY | 2024-08-06 12:13 | XMS_ITS | Encounter Summary ---
Author Organization [facility], Address [address] [id number] Phone Care Team Providers Care Saas Architect Name Role Phone Herbert Napier MD Primary Care Provider [phone] Encounter Details Date Type Department Care Team (Late st Contact Info) Description 07/30/2023 Documentation Only [facility], [address] [place] [phone] Torrey Loomis MD [address] [place] [phone] Social History Tobacco Use Types Packs/Day Years Used Date Smoking Tobacco: Former Cigarettes Q uit: 08/2018 Smokeless Tobacco: Never Comments:Smoking History Inf o:Every day Alcohol Use Standard Drinks/Week Comments Not Currently 0 (1 standard drink = 0.6 oz pur e alcohol) quit 08/2018 Sex and Gender Information Value Date Recorded Sex Assigned at Not on file Legal Sex Male 4:42 PM EST Gender Identity Not on file Sexual Orientation Not on file documented as of this encounter Plan of Treatment Not on file documented as of this encounter Visit Diagnoses Not on filedocumented in this encounter Care Teams Saas Architect Relationship Specialty Start Date End Date Herbert Napier MD [facility] [address] [place] [address] PCP - General 07/04/20 documented as of this encounter
--- OUTSIDE RECORDS SUMMARY | 2024-08-06 12:13 | XMS_ITS ---
Author Name [facility] Organization Unknown Problems Problem Status Onset Date Problem Type Date of Resoluti on Source Complication of transplanted kidney, unspecified complication active EncounterDiagnosisAct [facility]
--- OUTSIDE RECORDS SUMMARY | 2024-08-06 12:13 | XMS_ITS | Clinical Summary ---
Author Organization [facility] Address [address] [place] [address] Care Team Providers Care Local Company Hazmat Driver Name Role Phone Ricki Porras MD Primary Care Provider [phone] Encounters Date Type Department Care Team Description 06/12/2024 Travel from Last 3 Months Social History Tobacco Use Types Packs/Day Years Used Date Smoking Tobacco: Never Assessed Sex and Gender Information Value Date Recorded Sex Assigned at Male 04/28/2024 10:59 AM EST Gender Identity Male 04/28/2024 10:59 AM EST Sexual Orientation Heterosexual (straight) 04/28 10:59 AM EST Plan of Treatment Health Maintenance Due Date Last Done Comments Hepatitis C Virus Screening 1973 HIV Screening 1986 DTaP/Tdap/Td Vaccines (1 - Tdap) 1992 Pneumococcal Vaccines 50+ (1 of 2 - PCV) 1992 Hepatitis B Vaccines (1 of 3 - Risk Dialysis 4-dose series) 1993 Colonoscopy 2018 Zoster (Shingles) Vaccine (1 of 2) 10/01/2023 Influenza Vaccine 01/23/2024 03/30/2022, , 09/25/2018, Additional history exists COVID-19 Vaccine (6 - 2023-2 5 season) 2024 04/06/2022, 12/08/2021, 04/28/2021, Additional history exists Care Teams Local Company Hazmat Driver Relationship Specialty Start Date End Date Ricki Porras MD [address] [place] [address] Dr Kwok, [place] [address] PCP - General Nephrology 11/21/23
--- OUTSIDE RECORDS SUMMARY | 2024-08-06 12:13 | XMS_ITS | Clinical Summary ---
Author Organization [facility], Address [address] [place] [address] Phone Care Team Providers Care Irrigator Gravity Flow Name Role Phone Herbert Napier MD Primary Care Provider [phone] Allergies Active Allergy Reactions Criticality Noted Date Comments Amoxicillin Itching Low 06/10/2019 Lisinopril Other (see comments) High 06/10/2019 Dry cough Medications fluticasone (FLONASE) 50 MCG/ACT nasal spray Administer 1 spray into each nostril 1 (one) time each day Active Cholecalciferol (VITAMIN D3) 25 MCG (1000 UT) capsule Take 1 capsule by mouth 1 (one) time each day Active albuterol HFA (PROVENTIL HFA;VENTOLIN HFA) 108 (90 Base) MCG/ACT inhaler Comments: Patient Notes: INHALE 1-2 PUFFS INTO LUNGS EVERY 6 HOURS NEEDED FOR DIFFICULTY BREATHING. Duration: 30 Active insulin glargine (LANTUS) 100 UNIT/ML injection Inject 10 Units under the skin 2 (two) times a day Active Insulin Lispro, 1 Unit Dial, 100 UNIT/ML solution pen-injector Inject under the skin 3 (three) times a day Active nitroglycerin (NITROSTAT) 0.4 MG SL tablet as directed Activ e Velphoro 500 MG chewable tablet CRUSH OR CHEW AND SWALLOW 1 TABLET BY MOUTH TWICE A DAY WITH SMALLER MEALS AND 2 TABLETS WITH THE LARGEST MEAL 1 Active Alcohol Swabs (Easy Touch Alcohol Prep Medium) 70 % pads USE TO CHECK BLOOD SUGAR 2 TIMES A DAY DIRECTED 1 Active Blood Glucose Monitoring Suppl (ONE TOUCH ULTRA 2) w/Device kit USE TO TEST BLOOD GLUCOSE 3 TO 5 TIMES DAILY 1 Active gabapentin (NEURONTIN) 100 MG capsule 1 Active OneTouch Ultra test strip TEST GLUCOSE THREE TO FIVE TIMES DAILY 1 Active Lancets (OneTouch Delica Plus [id number]) misc USE TO TEST BLOOD GLUCOSE 3 TO 5 TIMES DAILY 1 Active ibuprofen (ADVIL,MOTRIN) 800 MG tablet Take 1 tablet (800 mg total) by mouth every 8 (eight) hours if needed (pain) 180 tablet 5 2 Active traMADol (Ultram) 50 MG tablet Take 3 tablets (150 mg total) by mouth every 8 (eight) hours if needed for moderate pain 90 tablet 5 2 Active carvedilol (COREG) 25 MG tablet TAKE 2 TABLETS BY MOUTH TWICE DAILY, TAKE WITH FOOD. 120 tablet 11 2 Active apixaban (ELIQUIS) 5 MG tablet Take 5 mg by mouth 2 Active atorvastatin (LIPITOR) 40 MG tablet Take 1 tablet by mouth 2 Active MINOXIDIL PO Take 10 mg by mouth Active losartan (COZAAR) 100 MG tablet TAKE 1 TABLET(100 MG) BY MOUTH 1 TIME EACH DAY 90 tablet 3 3 Active oxyCODONE-aceta minophen (Percocet) 10-325 MG per tablet Take 1 tablet by mouth every 6 (six) hours if needed for moderate pain 120 tablet 3 Active NIFEdipine CC (ADALAT CC) 60 MG 24 hr tablet Take 1 tablet (60 mg total) by mouth 1 (one) time each day 90 tablet 3 4 Active famotidine (PEPCID) 20 MG tablet Take 1 tablet (20 mg total) by mouth 1 (one) time each day 30 tablet 3 4 11/01/19 25 Active Hospital, Clinic, or Other Facility Administered Medication Ordered Dose Route Frequency Start Date End Date Status midazolam (VERSED) injection 2 mgIndications:End stage renal failure on dialysis (HCC) 2 mg IV As needed 06/11/2019 Active lidocaine (XYLOCAINE) 1 % injection 20 mgIndications:End stage renal failure on dialysis (HCC) 20 mg ID As needed 06/11/2019 Active Active Problems Problem Noted Date Diagnosed Date Abscess of prostate 12/04/2022 Anemia 12/04/2022 Asthma 12/04/2022 Atrial fibrillation 12/04/2022 Angina pectoris 12/04/2022 Chronic kidney disease stage 5 due to type 2 diabetes mellitus 12/04/2022 Overview (12/04/2022): on HD on HD Chronic systolic heart failure 12/04/2022 Congestive heart failure 12/04/2022 Dependence on hemodialysis due to end stage juani l disease 12/04/2022 Drug therapy finding 12/04/2022 Dyslipidemia 12/04/2022 Gastroesophageal reflux disease 12/04/2022 H/O: duodenal ulcer 12/04/2022 High risk drug monitoring status 12/04/2022 Pain of knee region 12/04/2022 History of clinical finding in subject Overview (12/04/2022): Pain relevant problem list includes: See below Pain relevant problem list includes: See below Obese class II 12/04/2022 Opioid dependence 12/04/2022 Pulmonary hypertension 12/04/2022 Recurrent urinary tract infection 12/04/2022 Urethral stricture 12/04/2022 Acute nontraumatic kidney injury 10/18/2020 Chronic kidney disease stage 3 10/18/2020 Dependence on renal dialysis 10/18/2020 Hyperkalemia 10/18/2020 Hyperparathyroidism due to renal insufficiency 0 10/18/2020 Hypertensive renal disease 10/18/2020 Iron deficiency anemia 10/18/2020 Morbid obesity 10/18/2020 Proteinuria 10/18/2020 Renal disorder due to type 2 diabetes mellitus 0 10/18/2020 Cataract 06/10/2019 Anemia of chronic renal failure 06/10/2019 Hypercholesterolemia 06/10/2019 Essential hypertension 06/10/2019 Rheumatoid arthritis 06/10/2019 Sickle cell trait 06/10/2019 Obstructive sleep apnea syndrome 06/10/2019 Type 2 diabetes mellitus 06/10/2019 Nonproliferative retinopathy due to diabetes bubba litus 04/01/2013 Overview (12/04/2022): Dr Ndiaye, [facility] Dr Ndiaye, [facility] Immunizations Name Administration Dates Next Due Influenza Split High Dose Preservative Free IM 1 Family History Medical History Relation Comments Heart disease Father Hypertension Father Kidney disease Father dialysis Stroke Father Autosomal Dominant Polycystic Kidney Disease Mot her Diabetes Mother type 2 Gout Mother Hypertension Mother Heart disease Sibling 1 Hypertension Sibling 1 Diabetes Sibling 2 sister - type 2 Heart disease Sibling 3 sister - heart m urmur Relation Status Comments Father Unknown Mother Unknown Sibling 1 Sibling 2 Sibling 3 Social History Tobacco Use Types Packs/Day Years [...] on file Sexual Orientation Not on file Last Filed Vital Signs Vital Sign Reading Time Taken Comments Blood Pressure 161/97 12/04/2022 10:29 AM EDT Pulse 88 12/04/2022 10:29 AM EDT Temperature 36.2 ??C (97.2 ??F) 12/04/2022 10:29 AM E DT Respiratory Rate 17 04/19/2020 7:48 AM EDT Oxygen Saturation 98% 12/04/2022 10:29 AM EDT Inhaled Oxygen Concentration - - Weight 119 kg (262 lb 5.6 oz) 12/04/2022 10:29 A M EDT Height 180.3 cm (5' 11 ) 12/04/2022 10:29 AM EDT Body Mass Index 36.59 12/04/2022 10:29 AM EDT Plan of Treatment Health Maintenance Due Date Last Done Comments Hepatitis B Vaccine (1 of 3 - 19+ 3-dose series) 1992 03/18/2015, 10/18/2014, 09/17/2014 Pneumococcal Vaccine: Pediat rics (0 to 5 Years) and At-Risk Patients (6 to 64 Years) (3 of 3 - PCV) 10/03/2019 10/02/2018, 05/22/2006 Diabetes: Ophthalmology Exam 07/24/2020 Diabetes: Pedal Pulse Checked 07/24/2020 Diabetes: Sensory Foot Exam 07/24/2020 Diabetes: Visual Foot Exam 07/24/2020 Colorectal Cancer Screening: Annual FOBT 2022 Colorectal Cancer Screening: Colonoscopy 2022 Colorectal Cancer Screening: Sigmoidoscopy 2022 Diabetes: Hemoglobin A1C 05/09/2023 023, 01/09/2023, 10/15/2022, Additional history exists Influenza Vaccine (#1) 2024 6, 08/19/2012, 03/01/2009, Additional history exists Procedures Procedure Name Priority Date/Time Associated Diagnosis Comments SPECIAL CHEMISTRY Routine 02/06/2023 from Last 3 Months or Most Recently Relevant to Health Maintenance Results * (ABNORMAL) SPECIAL CHEMISTRY (02/06/2023) Hemoglobin A1C 9.0(H) 4.8 - 5.9 % APS [facility] PVNMA 02/06/2023 02/07/2023 7:3 8 AM EDT Narrative [facility]PS [facility] - 02/07/2023 Unless otherwise specified, test(s) performed at: [facility], [address] [place] [address] EXCHANGE FLOOR MANAGER: Eduard García M.D. For any questions, please call customer service at FREQUENCY:MONTHLY Resulting Agency Comment Specimen source: Blood Paul Park MD LAB BLOOD BANK TEST ORDERABLE S Final Result [facility]PS [facility] PVNMA from Last 3 Months or Most Recently Relevant to Health Maintenance [place] [address] [address] [place] [address] ([id number]) [employer] D[employer] ([id number]) Care Teams Irrigator Gravity Flow Relationship Specialty Start Date End Date Herbert Napier MD [address] PCP - General 07/04/20
--- OUTSIDE RECORDS SUMMARY | 2024-08-06 12:13 | XMS_ITS | Clinical Summary ---
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 ([facility]) DX: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 ([facility]) Background diabetic retinopa thy ([facility]) DX:Background diabetic retin opathy ([facility]) Chronic back pain DX:Chronic harsha k pain Stage 5 chronic kidney disea se due to type 2 diabetes mellitus ([facility]) DX:Stage 5 chronic kidney disease due to type 2 diabetes mellitus ([facility]) Diabetes mellitus without co mplication ([facility]) DX:Diabetes mellitus without complication ([facility]) Erectile dysfunction DX:Erectile dysfunction History of medical problems DX:H istory of medical problems Knee pain DX:Knee pain Limitation due to disability DX: Limitation due to disability Low back pain DX:Low back pain Medically noncompliant DX:Medica lly noncompliant Obesity due to excess calories D X:Obesity due to excess calories Opiate analgesic contract exists DX:Opiate analgesic contract exists Prostate abscess DX:Prostate abs cess Sickle cell trait ([facility]) DX:S ickle cell trait ([facility]) Use of opiates for therapeutic purposes DX:Use of opiates for therapeutic purposes Dialysis patient ([facility]) DX:Di alysis patient ([facility]) Leg weakness, bilateral DX:Leg w eakness, bilateral; COMMENT: D/C'd from [facility] 08/22/21 ESRD on dialysis ([facility]) DX:ES RD on dialysis (HCC); COMMENT: D/C'd from [facility] 08/22/21 Family History Medical History Relation Name Comments Coronary artery disease Father Heart attack Father Hypertension Father Kidney failure Father Stroke Father Diabetes Mother Hypertension Mother Relation Name Status Comments Father Mother Social History Tobacco Use Types Packs/Day Years Used Date Smoking Tobacco: Former Smokeless Tobacco: Never Alcohol Use Standard Drinks/Week Comments Not Currently 0 (1 standard drink = 0.6 oz pur e alcohol) Sex and Gender Information Value Date Recorded Sex Assigned at Not on file Legal Sex Male 10:40 PM EST Gender Identity Not on file Sexual Orientation Not on file Obstetrics History Last Filed Vital Signs Vital Sign Reading Time Taken Comments Blood Pressure 110/80 07/25/2023 11:10 AM EST Si tting L Arm Pulse 88 07/25/2023 11:10 AM EST Temperature - - Respiratory Rate - - Oxygen Saturation - - Inhaled Oxygen Concentration - - Weight 111 kg (244 lb) 07/25/2023 11:10 AM EST Height 180.3 cm (5' 11 ) 07/25/2023 11:10 AM EST Body Mass Index 34.03 07/25/2023 11:10 AM EST Plan of Treatment Health Maintenance Due Date Last Done Comments Diabetes: Annual GFR (Glomer ular Filtration Rate) 1973 COVID-19 Vaccine (#1) 1978 Pneumococcal Vaccine: Pediat rics (0 to 5 Years) and At-Risk Patients (6 to 64 Years) (1 of 2 - PCV) 10/01/1979 Diabetes: Annual Foot Exam 10/01/1983 Diabetes: Annual Retina Eye Exam 10/01/1983 DTaP,Tdap,and Td Vaccines (1 - Tdap) 1992 Hepatitis B Vaccines (1 of 3 - 19+ 3-dose series) 1992 Zoster Vaccines (1 of 2) 1992 Cholesterol Screening (Lipid Panel) 06/03/2022 Colorectal Cancer Screening: Colonoscopy 06/03/2022 Depression Screening 06/03/2022 HIV Screening 06/03/2022 Hepatitis C Screening 06/03/2022 Hypertension/CHF/CAD Annual BMP Blood Test 06/03/2022 Social Influencers of Health Screening 06/03/2022 Diabetes: Annual Urine Albumin-Creatinine Ratio (uACR) 06/07/2022 Diabetes: Blood Sugar Contro l Test (HGBA1C) 06/07/2022 Influenza Vaccine (#1) 2024 HIB Vaccines Aged Out No longer eligi ble based on patient's age to complete this topic HPV Vaccines Aged Out No longer eligi ble based on patient's age to complete this topic Hepatitis A Vaccines Aged Out No long er eligible based on patient's age to complete this topic IPV Vaccines Aged Out No longer eligi ble based on patient's age to complete this topic MMR Vaccines Aged Out No longer eligi ble based on patient's age to complete this topic Meningococcal ACWY Vaccine Aged Out N o longer eligible based on patient's age to complete this topic RSV Immunization Patients Un gonzalo 20 months Aged Out No longer eligible b ased on patient's age to complete this topic Varicella Vaccines Aged Out No longer eligible based on patient's age to complete this topic Care Teams Facing End Trimmer Relationship Specialty Start Date End Date Abbi Zuleta PA [address] [place] [id number] PCP - General Internal Medicine 09/12/21
[2024-08-06 17:36] LABS: MANUAL DIFF FLAG NO
[2024-08-06 17:41] LABS: Basophils Percent Auto 0.6 % (0-2); Eosinophils Absolute Auto 0.1 X10*3/uL (0.0-0.4); Hematocrit 43.7 % (42.0-52.0); Hemoglobin 14.5 g/dl (14.0-18.0); Imm Gran Abs Auto 0.01 X10*3/uL (0.00-0.03); Imm Gran Pct Auto 0.2 % (0.0-0.4); Lymphocytes Absolute Auto 0.9 X10*3/uL (1.2-4.9); Mean Corpuscular HGB Conc 33.2 g/dl (31.0-36.0); Mean Corpuscular Hemoglobin 25.3 pg (27.0-33.0); Mean Corpuscular Volume 76.3 fL (80.0-98.0); Mean Platelet Volume 11.4 fL (9.4-12.4); Monocytes Absolute Auto 0.5 X10*3/uL (0.1-1.2); Monocytes Percent Auto 10.7 % (2-11); Neutrophils Absolute Auto 3.4 x10*3/uL (2.0-8.3); Neutrophils Percent Auto 69.5 % (45-73); Platelet Count 181 X10*3/uL (160-400); Red Blood Count 5.73 X10*6/uL (4.60-5.80); Red Cell Distribution Width 14.6 % (11.0-16.0); White Blood Count 4.9 X10*3/uL (4.8-10.8)
[2024-08-06 17:55] LABS: Anion Gap 14 (12-20); Blood Urea Nitrogen 18 mg/dL (9-16); Calcium 9.4 mg/dL (8.4-10.2); Carbon Dioxide 22 mmol/L (22-29); Chloride 104 mmol/L (96-108); Estimated Glomerular Filt Rate 31; Magnesium 1.6 mg/dL (1.6-2.6); Potassium 4.4 mmol/L (3.3-5.1); Sodium 136 mmol/L (135-145)
[2024-08-07 12:08] LABS: Tacrolimus Prograf 9.8 mcg/L
== END 2024-08-06 11:47 | disposition home or self-care (01) ==
LOC: HO.HKASLDS 11:46
PROVIDERS: Visit Provider Internal Medicine Nephrology
DX: I10 Essential (primary) hypertension (principal); Z94.0 Kidney transplant status
CPT/HCPCS: 36415; 80051; 80197; 82310; 82565; 83735; 84100; 84520; 85025

== ENCOUNTER 2024-08-13 12:20 | Outpatient (AMB) | payer OTHER, SELFPAY ==
--- NOTE | 2024-08-13 12:21 | HO.NEPHOV ---
Vital Signs 08/13/24 12:23 Height 5 ft 11 in Weight 236 lb 6 oz BMI 33.0 BP 122/70 Blood Pressure Location Rt brachial Position Sitting Pulse 85 Pulse Source Pulse Oximeter Pulse Oximetry (%) 99 Oxygen Delivery Method Room Air Intake Visit Reasons: 2mon follow up w/[employer] Security Analyst Required: No Accompanied by: Self / Same As Patient Allergies amoxicillin Allergy (Mild, Verified 08/13/24 12:23) Unknown lisinopril Allergy (Mild, Verified 08/13/24 12:23) Unknown Seasonal Allergies Allergy (Mild, Verified 08/13/24 12:23) Unknown HPI Comments Details: Gregorio was seen in follow-up of his donor renal transplant (06/06/23) . 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 He had no panel reactive antibody. He underwent induction with Thymoglobulin. He had delayed graft function needing for treatments of renal replacement therapy post transplant. His stent was removed on 06/25/2023. His serum creatinine was 2.6 on 08/01/2023. CMV status of the donor and recipient were positive. EBV status of donor and recipient were positive. Hepatitis B core antibody was negative for donor and recipient and hepatitis C antibody was negative for donor and recipient.His polyomavirus Status included BK PCR Quantitative <43 plasma, not detected urine 08/05/23. Transplant renal biopsy was done on 07/22 which showed - Mild interstitial inflammation and mild tubulitis, cannot exclude suspicious for acute T-cell mediated rejection. (see comment) with patchy acute tubular injury with reactive/reparative nuclear change. Glomeruli with no significant microvascular inflammation. Had mild interstitial edema, with no significant fibrosis or tubular atrophy. Arteries and arterioles with no significant change. He had Prospera done on 09/06/2023. DSA was negative on 08/21/23. His immunosuppression included envarsus 3mg taken with ketoconazole 200mg qd & myfortic 720/720mg. His prophylaxis therapy includeed bactrim qd d/kylee 12/06/23 (mycelex d/kylee 09/05/23 )& valcyte qod d/kylee 12/06/23. His BS is well controlled. [facility] Medical History YEVGENIY (obstructive sleep apnea) Hypertension CHF (congestive heart failure) Asthma A-fib Type 2 diabetes mellitus ESRD (end stage renal disease) Surgical History Kidney transplant status Social History Alcohol intake: former Patient Tobacco Use Status: Former Tobacco user Review of Systems Const All systems reviewed & are unremarkable except as noted in HPI and below Physical Exam Vital Signs: Last Vital Signs Pulse 85 08/13/24 12:23 BP 122/70 08/13/24 12:23 Pulse Ox 99 08/13/24 12:23 Oxygen Delivery Method Room Air 08/13/24 12:23 BMI result Body Mass Index 33.0 Const General: comfortable and no acute distress Orientation/consciousness: patient oriented x3 HEENT Head: Yes normocephalic Mouth: Normal oral and palatal mucosa present Eyes EOM: EOMs intact bilaterally Neck Neck: Yes supple Resp Auscultation: clear to auscultation bilaterally Cardio Jugular venous distension: no JVD Rate: regular rate GI Palpation (GI): Soft to palpation Auscultation: normal bowel sounds General: Yes no CVA tenderness Back/Spine/Pelvis Back: no CVA tenderness Skin General skin exam: no rashes or lesions noted Neuro General: patient oriented x3 and moves all extremities Extrem General: Yes no pedal edema Results Reviewed Nephrology Results: Hgb 14.5 g/dl (14.0-18.0) 08/06/24 WBC 4.9 X10*3/uL (4.8-10.8) 08/06/24 Plt Count 181 X10*3/uL (160-400) 08/06/24 Sodium 136 mmol/L (135-145) 08/06/24 Potassium 4.4 mmol/L (3.3-5.1) 08/06/24 Chloride 104 mmol/L (96-108) 08/06/24 Carbon Dioxide 22 mmol/L (22-29) 08/06/24 BUN 18 mg/dL (9-16) H 08/06/24 Creatinine 2.28 mg/dL (0.5-1.4) H 08/06/24 Calcium 9.4 mg/dL (8.4-10.2) 08/06/24 Phosphorus 3.0 mg/dL (2.7-4.5) 08/06/24 Assessment & Plan Assessment & Plan (1) Renal transplant recipient: Code(s): Z94.0 - Kidney transplant status Category: Surgical (2) Hypertension: Code(s): I10 - Essential (primary) hypertension Category: Medical Qualifiers: Hypertension type: primary hypertension Qualified Code(s): I10 - Essential (primary) hypertension Plan 1. Allograft function: Serum creatinine stable ; DSA had been negative ; biopsy negative for rejection in the past; Hold Renal biopsy for now. Tacrolimus levels stable. Management is based on evolving data- does not need biopsy now 2. Immunosuppression: C/W tacro @ 2 mg 3. BP and volume status: stable; no changes 4. Metabolic parameters: potassium stable 5. Hematologic parameters: hemoglobin is fine; continue to monitor Orders: Orders Phosphorus 2 Months I10 - Essential (primary) hypertension, Z94.0 - Kidney transplant status Magnesium 2 Months I10 - Essential (primary) hypertension, Z94.0 - Kidney transplant status Creatinine 2 Months I10 - Essential (primary) hypertension, Z94.0 - Kidney transplant status Calcium 2 Months I10 - Essential (primary) hypertension, Z94.0 - Kidney transplant status Alanine Aminotransferase 2 Months I10 - Essential (primary) hypertension, Z94.0 - Kidney transplant status Aspartate Amino Transferase 2 Months I10 - Essential (primary) hypertension, Z94.0 - Kidney transplant status Tacrolimus Prograf 1 Month I10 - Essential (primary) hypertension, Z94.0 - Kidney transplant status Tacrolimus Prograf 2 Months I10 - Essential (primary) hypertension, Z94.0 - Kidney transplant status Blood Urea Nitrogen 2 Months I10 - Essential (primary) hypertension, Z94.0 - Kidney transplant status Electrolytes 2 Months I10 - Essential (primary) hypertension, Z94.0 - Kidney transplant status Complete Blood Count Auto Diff 2 Months I10 - Essential (primary) hypertension, Z94.0 - Kidney transplant status Coding Level of Care Code Est Pt Level 4 (83048) Diagnoses Renal transplant recipient Z94.0 Primary hypertension I10 Hypertension type: primary hypertension
[2024-08-13 12:23] VITALS: BP 122/70; PULSE 85; O2SAT 99; BMI 33.0
--- OUTSIDE RECORDS SUMMARY | 2024-08-13 13:19 | XMS_ITS | Clinical Summary ---
Author Organization [facility], Address [address] [place] [address] Phone Care Team Providers Care Apartment Leasing Agent Name Role Phone Herbert Napier MD Primary Care Provider [phone] Allergies Active Allergy Reactions Criticality Noted Date [...] DAILY 1 Active Lancets (OneTouch Delica Plus [id number]) misc USE TO TEST BLOOD GLUCOSE 3 [...] bubba litus 04/01/2013 Overview (12/04/2022): Dr Ndiaye, [facility] Dr Ndiaye, [facility] Immunizations Name Administration Dates Next Due Influenza [...] A1C 9.0(H) 4.8 - 5.9 % APS [employer] PVNMA 02/06/2023 02/07/2023 7:3 8 AM EDT Narrative [facility]PS [facility] - 02/07/2023 Unless otherwise specified, test(s) performed at: [facility], [address] [place] [address] FUNCTIONAL DIRECTOR: Eduard García M.D. For any questions, please call customer service at FREQUENCY:MONTHLY Resulting Agency Comment Specimen source: Blood Paul Park MD LAB BLOOD BANK TEST ORDERABLE S Final Result [facility] PVNMA from Last 3 Months or Most Recently Relevant to Health Maintenance [place] [address] [address] ([id number]) [employer] ([id number]) Care Teams Apartment Leasing Agent Relationship Specialty Start Date End Date Herbert Napier MD [address] PCP - General 07/04/20
--- OUTSIDE RECORDS SUMMARY | 2024-08-13 13:19 | XMS_ITS | Clinical Summary ---
Author Organization [facility] Address [address] [place] [address] Care Team Providers Care Forensic Toxicologist Name Role Phone Ricki Porras MD Primary Care Provider [phone] Encounters Date Type Department Care Team Description [...] 12/08/2021, 04/28/2021, Additional history exists Care Teams Forensic Toxicologist Relationship Specialty Start Date End Date Rikci Porras MD [address] [place] [address] Dr Kwok, [place] [address] PCP - General Nephrology 11/21/23
--- OUTSIDE RECORDS SUMMARY | 2024-08-13 13:19 | XMS_ITS | Clinical Summary ---
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 ([facility]) DX: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 ([facility]) Background diabetic retinopa thy ([facility]) DX:Background diabetic retin opathy ([facility]) Chronic back pain DX:Chronic harsha k pain Stage 5 chronic kidney disea se due to type 2 diabetes mellitus ([facility]) DX:Stage 5 chronic kidney disease due to type 2 diabetes mellitus ([facility]) Diabetes mellitus without co mplication ([facility]) DX:Diabetes mellitus without complication ([facility]) Erectile dysfunction DX:Erectile dysfunction History of medical [...] abscess DX:Prostate abs cess Sickle cell trait ([facility]) DX:S ickle cell trait ([facility]) Use of opiates for therapeutic purposes DX:Use of opiates for therapeutic purposes Dialysis patient ([facility]) DX:Di alysis patient ([facility]) Leg weakness, bilateral DX:Leg w eakness, bilateral; COMMENT: D/C'd from [facility] 08/22/21 ESRD on dialysis ([facility]) DX:ES RD on dialysis ([facility]); COMMENT: D/C'd from [facility] 08/22/21 Family History [...] Filtration Rate) 1973 COVID-19 Vaccine (#1) 1978 Diabetes: Annual Foot Exam 10/01/1983 Diabetes: Annual Retina Eye Exam 10/01/1983 DTaP,Tdap,and Td Vaccines (1 - Tdap) 1992 Hepatitis B Vaccines (1 of 3 - 19+ 3-dose series) 1992 Pneumococcal Vaccine: 50+ Ye ars (1 of 2 - PCV) 1992 Pneumococcal Vaccine: Pediat rics (0 to 5 Years) and At-Risk Patients (6 to 64 Years) (1 of 2 - PCV) 1992 Zoster Vaccines (1 of 2) 1992 [...] patient's age to complete this topic Meningococcal B Vacine Aged Out No lo nger eligible based on patient's age to complete this topic RSV Immunization Patients Un gonzalo 20 months Aged Out No longer eligible b ased on patient's age to complete this topic Varicella Vaccines Aged Out No longer eligible based on patient's age to complete this topic Care Teams Stave Bolt Equalizer Relationship Specialty Start Date End Date Abbi Zuleta PA [address] [place] [address] PCP - General Internal Medicine 09/12/21
--- OUTSIDE RECORDS SUMMARY | 2024-08-13 13:19 | XMS_ITS | Encounter Summary ---
Author Organization [facility], Address [address] [address] Phone Care Team Providers Care Sports Medicine Trainer Name Role Phone Herbert Napier MD Primary Care Provider [phone] Encounter Details Date Type Department Care Team (Late st Contact Info) Description 07/30/2023 Documentation Only [facility], [address] [place] [phone] Torrey Loomis MD [address] [place] [phone] Social History Tobacco Use Types Packs/Day Years [...] on filedocumented in this encounter Care Teams Sports Medicine Trainer Relationship Specialty Start Date End Date Herbert Napier MD [facility] [address] [place] [address] PCP - General 07/04/20 documented as of this encounter
== END 2024-08-13 12:40 | disposition home or self-care (01) ==
PROVIDERS: PCP Physician Assistant; Visit Provider Internal Medicine Nephrology
DX: Z94.0 Kidney transplant status (principal); I10 Essential (primary) hypertension
CPT/HCPCS: 99214

== ENCOUNTER → 2024-08-13 12:20 | Outpatient (BNVA) | payer OTHER, SELFPAY | PROVIDERS: PCP Physician Assistant; Visit Provider Internal Medicine Nephrology | DX: I10 Essential (primary) hypertension (principal); Z94.0 Kidney transplant status | CPT/HCPCS: 99212 ==

== ENCOUNTER 2024-09-10 13:35 | Outpatient (REF) | payer OTHER, SELFPAY ==
[2024-09-11 15:08] LABS: Tacrolimus Prograf 7.6 mcg/L
== END 2024-09-10 13:36 | disposition home or self-care (01) ==
LOC: HO.HKASLDS 13:35
PROVIDERS: Visit Provider Internal Medicine Nephrology
DX: I10 Essential (primary) hypertension (principal); Z94.0 Kidney transplant status
CPT/HCPCS: 36415; 80197

== ENCOUNTER 2024-10-15 14:30 | Outpatient (REF) | payer OTHER, SELFPAY ==
--- OUTSIDE RECORDS SUMMARY | 2024-10-15 17:06 | XMS_ITS | Encounter Summary ---
Author Organization [facility], Address [address] [address] Phone Care Team Providers Care Director Post Name Role Phone Herbert Napier MD Primary Care Provider [phone] Encounter Details Date Type Department Care Team (Late st Contact Info) Description 07/30/2023 Documentation Only [facility], [address] [place] [phone] Torrey Loomis MD [address] [place] [phone] Social History Tobacco Use Types Packs/Day Years [...] on filedocumented in this encounter Care Teams Director Post Relationship Specialty Start Date End Date Herbert Napier MD [facility] [address] [place] [address] PCP - General 07/04/20 documented as of this encounter
--- OUTSIDE RECORDS SUMMARY | 2024-10-15 17:06 | XMS_ITS | Clinical Summary ---
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 ([facility] V24, [facility] V28) DX:Autosomal feliberto nant centronuclear myopathy 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 ([facility]) Background diabetic retinopa thy ([facility] V24, [facility] V28) DX:Background diabetic retin opathy ([facility]) Chronic back pain DX:Chronic harsha k pain Stage 5 chronic kidney disea se due to type 2 diabetes mellitus ([facility] V24, [facility] V28) DX:Stage 5 chronic kidney di sease due to type 2 diabetes mellitus ([facility]) Diabetes mellitus without co mplication ([facility] V24, [facility] V28) DX:Diabetes mellitus withou t complication ([facility]) Erectile dysfunction DX:Erectile dysfunction History of medical [...] abscess DX:Prostate abs cess Sickle cell trait ([facility] V24) DX:Sickle cell trait ([facility]) Use of opiates for therapeutic purposes DX:Use of opiates for therapeutic purposes Dialysis patient ([facility] V24) D X:Dialysis patient ([facility]) Leg weakness, bilateral DX:Leg w eakness, bilateral; COMMENT: D/C'd from [facility] 08/22/21 ESRD on dialysis ([facility]/HCC V2 4, CMS/HCC V28) DX:ESRD on dialysis ([facility]); C OMMENT: D/C'd from [facility] 08/22/21 Family History Medical History Relation Name [...] 07/25/2023 11:10 AM EST Plan of Treatment Upcoming Encounters Date Type Department Care Team (Late st Contact Info) Description 10/21/2024 11:20 AM EDT Office Visit [facility] [address] [place] [address] Seb Ingram MD [address] [place] [address] [address] [place] [address] Health Maintenance Due Date Last Done Comments [...] 06/03/2022 Hypertension/CHF/CAD Annual BMP Blood Test 06/03/2022 Medicare Annual Wellness Visit 06/03/2022 Social Influencers of Health Screening 06/03/2022 Diabetes: Annual Urine Albumin-Creatinine Ratio (uACR) 06/07/2022 Diabetes: Blood Sugar Contro l Test (HGBA1C) 06/07/2022 Influenza Vaccine (Season Ended) 2025 HIB Vaccines Aged Out No longer eligi [...] age to complete this topic Meningococcal B Vaccine Aged Out No l onger eligible based on patient's age to complete this topic RSV Immunization Patients Un gonzalo 20 months Aged Out No longer eligible b ased on patient's age to complete this topic Varicella Vaccines Aged Out No longer eligible based on patient's age to complete this topic Insurance MEDICARE Member Subscriber Plan / Payer (Ef fective 2021-Present) Name:Gregorio Heaton Relation to Subscriber:Self Name:Gregorio Heaton Payer ID:[id number] Group ID:[id number] Type:Not on file Address: [address] [place] [address] Care Teams Transportation Services Representative Relationship Specialty Start Date End Date Abbi Zuleta PA [address] [place] [address] PCP - General Internal Medicine 09/12/21
--- OUTSIDE RECORDS SUMMARY | 2024-10-15 17:06 | XMS_ITS | Clinical Summary ---
Author Organization [facility], Address [address] [place] [address] Phone Care Team Providers Care Aba Tutor Name Role Phone Herbert Napier MD Primary Care Provider [phone] Allergies Active Allergy Reactions Criticality Noted Date [...] DAILY 1 Active Lancets (OneTouch Delica Plus [id number]) misc USE TO TEST BLOOD GLUCOSE 3 [...] bubba litus 04/01/2013 Overview (12/04/2022): Dr Ndiaye, [facility] Ndiaye, [facility] Immunizations Immunization Administration Dates Next Due Influenza Split High [...] series) 1992 03/18/2015, 10/18/2014, 09/17/2014 Pneumococcal Vaccine: 50+ Ye ars (3 of 3 - PCV) 10/03/2019 10/02/2018, 05/22/2006 Diabetes: Ophthalmology Exam 07/24/2020 Diabetes: Pedal Pulse Checked 07/24/2020 Diabetes: Sensory Foot Exam 07/24/2020 Diabetes: Visual Foot Exam 07/24/2020 Colorectal Cancer Screening: Annual FOBT 2022 Colorectal Cancer Screening: Colonoscopy 2022 Colorectal Cancer Screening: Sigmoidoscopy 2022 Diabetes: Hemoglobin A1C 05/09/2023 023, 01/09/2023, 10/15/2022, Additional history exists Influenza Vaccine (Season Ended) 2025 03/28/2016, 08/19/2012, 03/01/2009, Additional history exists Pneumococcal Vaccine: Peds ( 0 to 5 Years) and At-Risk Patients (6 to 49 Years) Discontinued 10/02/2018, 05/22/2006 Procedures Procedure Name Priority Date/Time Associated Diagnosis Comments SPECIAL CHEMISTRY Routine 02/06/2023 from Last 3 Months or Most Recently Relevant to Health Maintenance Results * (ABNORMAL) SPECIAL CHEMISTRY (02/06/2023) Hemoglobin A1C 9.0(H) 4.8 - 5.9 % [facility] 02/06/2023 02/07/2023 7:3 8 AM EDT Narrative [facility] - 02/07/2023 Unless otherwise specified, test(s) performed at: [facility], [address] [place] [address] CASE WORK AIDE: Eduard García M.D. For any questions, please call customer service at FREQUENCY:MONTHLY Resulting Agency Comment Specimen source: Blood Paul Park MD LAB BLOOD BANK TEST ORDERABLE S Final Result [facility] from Last 3 Months or Most Recently Relevant to Health Maintenance Insurance ([id number]) [facility] Care Dual SNP ([id number]) Care Teams Aba Tutor Relationship Specialty Start Date End Date Herbert Napier MD [facility] [address] [place] [address] PCP - General 07/04/20
--- OUTSIDE RECORDS SUMMARY | 2024-10-15 17:07 | XMS_ITS | Clinical Summary ---
Author Organization [facility] Address [address] [place] [address] Care Team Providers Care Assistant Clinical Nurse Manager Name Role Phone Ricki Porras MD Primary Care Provider [phone] Social History Tobacco Use Types Packs/Day Years Used Date Smoking Tobacco: Never Assessed Sex and Gender Information Value Date Recorded Sex Assigned at Male 04/28/2024 10:59 AM EST Legal Sex Male 8:31 AM EST Gender Identity Male 04/28/2024 10:59 [...] 2024 04/06/2022, 12/08/2021, 04/28/2021, Additional history exists Insurance MISC MGD MEDICARE OUT OF NETWORK Care Teams Assistant Clinical Nurse Manager Relationship Specialty Start Date End Date Ricki Porras MD [address] [place] [address] [place] [address] PCP - General Nephrology 11/21/23
[2024-10-15 17:39] LABS: MANUAL DIFF FLAG NO
[2024-10-15 17:49] LABS: Basophils Percent Auto 0.5 % (0-2); Eosinophils Absolute Auto 0.1 X10*3/uL (0.0-0.4); Eosinophils Percent Auto 1.6 % (0-4); Hematocrit 40.7 % (42.0-52.0); Hemoglobin 13.5 g/dl (14.0-18.0); Imm Gran Abs Auto 0.02 X10*3/uL (0.00-0.03); Imm Gran Pct Auto 0.4 % (0.0-0.4); Lymphocytes Absolute Auto 0.9 X10*3/uL (1.2-4.9); Lymphocytes Percent Auto 15.5 % (20-40); Mean Corpuscular HGB Conc 33.2 g/dl (31.0-36.0); Mean Corpuscular Hemoglobin 25.7 pg (27.0-33.0); Mean Corpuscular Volume 77.5 fL (80.0-98.0); Mean Platelet Volume 10.4 fL (9.4-12.4); Monocytes Absolute Auto 0.7 X10*3/uL (0.1-1.2); Monocytes Percent Auto 12.7 % (2-11); Neutrophils Absolute Auto 3.8 x10*3/uL (2.0-8.3); Neutrophils Percent Auto 69.3 % (45-73); Platelet Count 165 X10*3/uL (160-400); Red Blood Count 5.25 X10*6/uL (4.60-5.80); Red Cell Distribution Width 14.9 % (11.0-16.0); White Blood Count 5.5 X10*3/uL (4.8-10.8)
[2024-10-15 18:18] LABS: Alanine Aminotransferase 23 U/L (0-40); Anion Gap 11 (12-20); Aspartate Amino Transferase 20 U/L (5-37); Blood Urea Nitrogen 25 mg/dL (9-16); Calcium 9.4 mg/dL (8.4-10.2); Carbon Dioxide 25 mmol/L (22-29); Chloride 104 mmol/L (96-108); Estimated Glomerular Filt Rate 36; Magnesium 1.7 mg/dL (1.6-2.6); Phosphorus 3.5 mg/dL (2.7-4.5); Potassium 4.5 mmol/L (3.3-5.1); Sodium 135 mmol/L (135-145)
[2024-10-16 07:54] LABS: Tacrolimus Prograf 4.3 mcg/L
== END 2024-10-15 14:31 | disposition home or self-care (01) ==
LOC: HO.HKASLDS 14:30
PROVIDERS: Visit Provider Internal Medicine Nephrology
DX: I10 Essential (primary) hypertension (principal); Z94.0 Kidney transplant status
CPT/HCPCS: 36415; 80051; 80197; 82310; 82565; 83735; 84100; 84450; 84460; 84520; 85025

== ENCOUNTER 2024-10-22 11:32 | Outpatient (AMB) | payer OTHER, SELFPAY ==
--- NOTE | 2024-10-22 11:59 | HO.NEPHOV_ITS ---
Vital Signs 10/22/24 12:01 Height 5 ft 11 in Weight 229 lb 8 oz BMI 32.0 BP 110/70 Blood Pressure Location Rt brachial Position Sitting Pulse 83 Pulse Source Pulse Oximeter Pulse Oximetry (%) 98 Oxygen Delivery Method Room Air Intake Visit Reasons: 2 mo follow up-[facility] Test Engineer Required: No Accompanied by: Self / Same As Patient Allergies amoxicillin Allergy (Mild, Verified 10/22/24 12:01) Unknown lisinopril Allergy (Mild, Verified 10/22/24 12:01) Unknown Seasonal Allergies Allergy (Mild, Verified 10/22/24 12:01) Unknown HPI Comments Details: Gregorio was seen in follow-up of his donor renal transplant (06/06/23) . 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 He had no panel reactive antibody. He underwent induction with Thymoglobulin. He had delayed graft function needing for treatments of renal replacement therapy post transplant. His stent was removed on 06/25/2023. His serum creatinine was 2.6 on 08/01/2023. CMV status of the donor and recipient were positive. EBV status of donor and recipient were positive. Hepatitis B core antibody was negative for donor and recipient and hepatitis C antibody was negative for donor and recipient.His polyomavirus Status included BK PCR Quantitative <43 plasma, not detected urine 08/05/23. Transplant renal biopsy was done on 07/22 which showed - Mild interstitial inflammation and mild tubulitis, cannot exclude suspicious for acute T-cell mediated rejection. (see comment) with patchy acute tubular injury with reactive/reparative nuclear change. Glomeruli with no significant microvascular inflammation. Had mild interstitial edema, with no significant fibrosis or tubular atrophy. Arteries and arterioles with no significant change. He had Prospera done on 09/06/2023. DSA was negative on 08/21/23. His immunosuppression included envarsus 3mg taken with ketoconazole 200mg qd & myfortic 720/720mg. His prophylaxis therapy includeed bactrim qd d/kylee 12/06/23 (mycelex d/kylee 09/05/23 )& valcyte qod d/kylee 12/06/23. His BS is well controlled. He has lost weight on Mounjaro. His tacarolimus dose was low this time. [facility] Medical History YEVGENIY (obstructive sleep apnea) Hypertension CHF (congestive heart failure) Asthma A-fib Type 2 diabetes mellitus ESRD (end stage renal disease) Surgical History Kidney transplant status Social History Alcohol intake: former Patient Tobacco Use Status: Former Tobacco user Review of Systems Const All systems reviewed & are unremarkable except as noted in HPI and below Physical Exam Vital Signs: Last Vital Signs Pulse 83 10/22/24 12:01 BP 110/70 10/22/24 12:01 Pulse Ox 98 10/22/24 12:01 Oxygen Delivery Method Room Air 10/22/24 12:01 BMI result Body Mass Index 32.0 Const General: comfortable and no acute distress Orientation/consciousness: patient oriented x3 HEENT Head: Yes normocephalic Mouth: Normal oral and palatal mucosa present Eyes EOM: EOMs intact bilaterally Neck Neck: Yes supple Resp Auscultation: clear to auscultation bilaterally Cardio Jugular venous distension: no JVD Rate: regular rate GI Palpation (GI): Soft to palpation Auscultation: normal bowel sounds General: Yes no CVA tenderness Back/Spine/Pelvis Back: no CVA tenderness Skin General skin exam: no rashes or lesions noted Neuro General: patient oriented x3 and moves all extremities Extrem General: Yes no pedal edema Results Reviewed Nephrology Results: Hgb 13.5 g/dl (14.0-18.0) L 10/15/24 WBC 5.5 X10*3/uL (4.8-10.8) 10/15/24 Plt Count 165 X10*3/uL (160-400) 10/15/24 Sodium 135 mmol/L (135-145) 10/15/24 Potassium 4.5 mmol/L (3.3-5.1) 10/15/24 Chloride 104 mmol/L (96-108) 10/15/24 Carbon Dioxide 25 mmol/L (22-29) 10/15/24 BUN 25 mg/dL (9-16) H 10/15/24 Creatinine 1.96 mg/dL (0.5-1.4) H 10/15/24 Calcium 9.4 mg/dL (8.4-10.2) 10/15/24 Phosphorus 3.5 mg/dL (2.7-4.5) 10/15/24 Assessment & Plan Assessment & Plan (1) Renal transplant recipient: Code(s): Z94.0 - Kidney transplant status Category: Surgical (2) Hypertension: Code(s): I10 - Essential (primary) hypertension Category: Medical Qualifiers: Hypertension type: primary hypertension Qualified Code(s): I10 - Essential (primary) hypertension Plan 1. Allograft function: Serum creatinine stable ; DSA had been negative ; biopsy negative for rejection in the past; Hold Renal biopsy for now. Tacrolimus levels low- dose adjusted. Management is based on evolving data- does not need biopsy now 2. Immunosuppression: Increased tacro to 3 mg 3. BP and volume status: stable; no changes 4. Metabolic parameters: potassium stable 5. Hematologic parameters: hemoglobin is fine; continue to monitor Tacro levels 3 weeks and repeat labs in 2 months Orders: Orders Tacrolimus Prograf 2 Months I10 - Essential (primary) hypertension, Z94.0 - Kidney transplant status Blood Urea Nitrogen 2 Months I10 - Essential (primary) hypertension, Z94.0 - Kidney transplant status Electrolytes 2 Months I10 - Essential (primary) hypertension, Z94.0 - Kidney transplant status Calcium 2 Months I10 - Essential (primary) hypertension, Z94.0 - Kidney transplant status Vitamin D 25-OH Total 2 Months I10 - Essential (primary) hypertension, Z94.0 - Kidney transplant status Tacrolimus Prograf 3 Weeks Z94.0 - Kidney transplant status Complete Blood Count Auto Diff 2 Months I10 - Essential (primary) hypertension, Z94.0 - Kidney transplant status Creatinine 2 Months I10 - Essential (primary) hypertension, Z94.0 - Kidney transplant status Phosphorus 2 Months I10 - Essential (primary) hypertension, Z94.0 - Kidney transplant status Parathyroid Hormone Intact 2 Months I10 - Essential (primary) hypertension, Z94.0 - Kidney transplant status Alanine Aminotransferase 2 Months I10 - Essential (primary) hypertension, Z94.0 - Kidney transplant status Aspartate Amino Transferase 2 Months I10 - Essential (primary) hypertension, Z94.0 - Kidney transplant status Magnesium 2 Months I10 - Essential (primary) hypertension, Z94.0 - Kidney transplant status Coding Level of Care Code Est Pt Level 4 (45455) Diagnoses Renal transplant recipient Z94.0 Primary hypertension I10 Hypertension type: primary hypertension
[2024-10-22 12:01] VITALS: BP 110/70; PULSE 83; O2SAT 98; BMI 32.0
== END 2024-10-22 12:22 | disposition home or self-care (01) ==
LOC: HO.HKAS 11:33
PROVIDERS: PCP Physician Assistant; Visit Provider Internal Medicine Nephrology
DX: Z94.0 Kidney transplant status (principal); I10 Essential (primary) hypertension
CPT/HCPCS: 99214

== ENCOUNTER → 2024-10-22 11:32 | Outpatient (BNVA) | payer OTHER, SELFPAY | PROVIDERS: PCP Physician Assistant; Visit Provider Internal Medicine Nephrology | DX: I10 Essential (primary) hypertension (principal); Z94.0 Kidney transplant status | CPT/HCPCS: 99212 ==

== ENCOUNTER 2024-11-12 13:09 | Outpatient (REF) | payer OTHER, SELFPAY ==
--- OUTSIDE RECORDS SUMMARY | 2024-11-12 13:14 | XMS_ITS | Clinical Summary ---
Author Organization [facility] Address [address] [address] Phone Care Team Providers Care Switch Cleaner Name Role Phone Paul Alvarez Primary Care Provider [phone] Allergies Active Allergy Reactions Criticality Noted Date Comments Amoxicillin Hives 10/21/2024 Lisinopril Cough 10/21/2024 Medications NIFEdipine CC (ADALAT CC) 60 mg 24 hr tablet Take 1 tablet (60 mg total) by mouth 1 (one) time each day before breakfast. Do not crush, chew, or split. Active carvediloL (COREG) 25 mg tablet Take 1 tablet (25 mg total) by mouth 2 (two) times a day with meals. Active albuterol HFA (PROAIR HFA ; PROVENTIL HFA ; VENTOLIN HFA) 90 mcg/actuation inhaler Inhale 2 puffs by mouth every 6 (six) hours if needed for wheezing. Active ergocalciferol (VITAMIN D-2) 1,250 mcg (50,000 unit) capsule Take 1 capsule (50,000 Units total) by mouth every 30 (thirty) days. Active apixaban (ELIQUIS) 2.5 mg tablet Take 1 tablet (2.5 mg total) by mouth 2 (two) times a day. Active ketoconazole (NIZORAL) 200 mg tablet Take 1 tablet (200 mg total) by mouth 1 (one) time each day. Active tirzepatide (Mounjaro) 5 mg/0.5 mL injection Inject 0.5 mL (5 mg total) under the skin every 7 (seven) days. Active insulin glargine (LANTUS) 100 unit/mL injection Inject under the skin at bedtime. Active insulin lispro 100 unit/mL injection Inject under the skin 3 (three) times a day before meals. -Administer within 15 minutes of a meal Active tacrolimus (ENVARSUS XR) 1 mg extended release tablet Take 2 tablets (2 mg total) by mouth 1 (one) time each day. Active famotidine (PEPCID) 20 mg tablet Take 1 tablet (20 mg total) by mouth 1 (one) time each day. Active sodium bicarbonate 650 mg tablet Take 1 tablet (650 mg total) by mouth 2 (two) times a day. Active gabapentin (NEURONTIN) 100 mg capsule Take 2 capsules (200 mg total) by mouth 3 (three) times a day. Active atorvastatin (LIPITOR) 40 mg tablet Take 1 tablet (40 mg total) by mouth at bedtime. Active oxyCODONE-acetam inophen (PERCOCET) 10-325 mg per tablet 1 tablet every 8 (eight) hours if needed for severe pain. Max Daily Amount: 3 tablets Active Active Problems Problem Noted Date Diagnosed Date Atrial fibrillation (CMS/HCC V24, CMS/HCC V28) 0 10/21/2024 Assessment & Plan (10/21/2024 12:57 PM EDT): Patient with a history of paroxysmal atrial fibrillation. Remains chronically anticoagulated with a dose adjustment based on nephrology recommendations given his renal transplant. Mild HFrEF. No evidence of significant volume overload. Patient will continue with present medical management and anticoagulation. Encounters Date Type Department Care Team Description 10/21/2024 11:20 AM EDT Office Visit [facility] [address] [place] [address] Hakeem Ingram MD Hypertension, unspecified type (Primary Dx); Permanent atrial fibrillation (CMS/HCC V24, CMS/HCC V28) from Last 3 Months Surgical History Surgery Date Site/Laterality Comments CARPAL TUNNEL RELEASE Bilateral PROCEDURE: [place] NEUROPLASTY &/TRANSPOS MEDIAN NRV CARPAL TUNNE CATARACT EXTRACTION PROCEDURE: HISTORICAL CATARACT REMOVAL Medical History Medical History Date Comments 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 (CMS/HCC V24, CMS/HCC V28) DX:Autosomal feliberto nant centronuclear myopathy 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 (HCC) Background diabetic retinopa thy (CMS/HCC V24, [facility] V28) DX:Background diabetic retin opathy ([facility]) Chronic back pain DX:Chronic harsha k pain Stage 5 chronic kidney disea se due to type 2 diabetes mellitus ([facility] V24, [facility] V28) DX:Stage 5 chronic kidney di sease due to type 2 diabetes mellitus ([facility]) Diabetes mellitus without co mplication ([facility] V24, [facility] V28) DX:Diabetes mellitus withou t complication ([facility]) Erectile dysfunction DX:Erectile dysfunction History [...] abscess DX:Prostate abs cess Sickle cell trait ([facility] V24) DX:Sickle cell trait ([facility]) Use of opiates for therapeutic purposes DX:Use of opiates for therapeutic purposes Dialysis patient ([facility] V24) D X:Dialysis patient ([facility]) Leg weakness, bilateral DX:Leg w eakness, bilateral; COMMENT: D/C'd from [facility] 08/22/21 ESRD on dialysis ([facility] V2 4, [facility] V28) DX:ESRD on dialysis ([facility]); C OMMENT: D/C'd from [facility] 08/22/21 Family History Medical History Relation Name Comments Coronary artery disease Father Heart attack Father Hypertension Father Kidney failure Father Stroke Father Diabetes Mother Hypertension Mother Relation Name Status Comments Father Mother Social History Tobacco Use Types Packs/Day Years Used Date Smoking Tobacco: Some Days Cigarettes Smokeless Tobacco: Never Tobacco Cessation:Ready to Q uit: Not Asked; Counseling Given: Not Answered Alcohol Use Standard Drinks/Week Comments Not Currently 0 (1 standard drink = 0.6 oz pur e alcohol) Sex and Gender Information Value Date Recorded Sex Assigned at Not on file Legal Sex Male 10:40 PM EST Gender Identity Not on file Sexual Orientation Not on file Obstetrics History Last Filed Vital Signs Vital Sign Reading Time Taken Comments Blood Pressure 132/70 10/21/2024 11:36 AM EDT Pulse 94 10/21/2024 11:36 AM EDT Temperature - - Respiratory Rate - - Oxygen Saturation 99% 10/21/2024 11:36 AM EDT Inhaled Oxygen Concentration - - Weight 104 kg (230 lb) 10/21/2024 11:36 AM EDT Height 180.3 cm (5' 11 ) 10/21/2024 11:36 AM EDT Body Mass Index 32.08 10/21/2024 11:36 AM EDT Plan of Treatment Health Maintenance Due Date Last Done Comments Diabetes: Annual GFR (Glomerular Filtration Rate) 1973 Diabetes: Annual Foot Exam 10/01/1983 Diabetes: Annual Retina Eye Exam 10/01/1983 Hepatitis A Vaccines (1 of 2 - Risk 2-dose series) 1992 Zoster Vaccines (1 of 2) 1992 Pneumococcal Vaccine: 50+ Years (3 of 3 - PCV) 10/03/2019 10/02/2018, 05/22/2006 Pneumococcal Vaccine: Pediatrics (0 to 5 Years) and At-Risk Patients (6 to 64 Years) (3 of 3 - PCV) 10/03/2019 10/02/2018, 05/22/2006 Cholesterol Screening (Lipid Panel) 06/03/2022 Colorectal Cancer Screening: Colonoscopy 06/03/2022 Depression Screening 06/03/2022 HIV Screening 06/03/2022 Hepatitis C Screening 06/03/2022 Hypertension/CHF/CAD Annual BMP Blood Test 06/03/2022 Medicare Annual Wellness Visit 06/03/2022 Social Influencers of Health Screening 06/03/2022 Diabetes: Annual Urine Albumin-Creatinine Ratio (uACR) 06/07/2022 Diabetes: Blood Sugar Control Test (HGBA1C) 06/07/2022 COVID-19 Vaccine ( season) 2024 04/06/2022, 12/08/2021, 04/28/2021, Additional history exists DTaP,Tdap,and Td Vaccines (2 - Td or Tdap) 09/10/2024 09/10/2014 MMR Vaccines Aged Out 09/20/2014 No longer eligi ble based on patient's age to complete this topic Hepatitis B Vaccines Completed 03/18/2015, 10/18/2014, 09/17/2014 Influenza Vaccine Completed 06/05/2024, , 04/14/2021, Additional history exists HIB Vaccines Aged Out No longer eligi [...] to complete this topic RSV Immunization Patients Under 20 months Aged Out No longer eligible based on patient's age to complete this topic Varicella Vaccines Aged Out No longer eligible based on patient's age to complete this topic Procedures Procedure Name Priority Date/Time Associated Diagnosis Comments ECG 12-LEAD Routine 10/21/2024 11:55 AM EDT Hypertension, unspecified type from Last 3 Months Results * ECG 12 lead (10/21/2024 11:55 AM EDT) Ventricular Rate ECG 89 BPM GEMUSE Atrial Rate 89 BPM GEMUSE P-R Interval 256 ms GEMUSE QRS Duration 90 ms GEMUSE Q-T Interval 354 ms GEMUSE QTc 430 ms GEMUSE P Wave [place] 65 degrees GEMUSE R [place] 80 degrees GEMUSE T [place] 63 degrees GEMUSE ECG Interpretation Sinus rhythm with 1st degree A-V block Otherwise normal ECG When compared with ECG of 10-SEP-2015 11:01, [place] interval has increased Nonspecific T wave abnormality no longer evident in Lateral leads Confirmed by Dale INGRAM, HAKEEM ([id number]) on 10/21/2024 12:59:30 PM GEMUSE 10/21/2024 11:5 5 AM EDT 10/21/2024 12:59 PM EDT us Hakeem Ingram MD ECG ORDERABLES Final Result GEMUSE from Last 3 Months Insurance [facility] MEDICARE Member Subscriber Plan / Payer (Ef fective 2021-Present) Name:SudarshanGregorio Relation to Subscriber:Self Name:Sudarshan Gregorio Junior Payer ID:[id number] Group ID:[id number] Type:Not on file Address: [place] [address] [address] [address] Care Teams Switch Cleaner Relationship Specialty Start Date End Date Paul Alvarez PA [address] [place] [address] PCP - General Internal Medicine 10/21/24
--- OUTSIDE RECORDS SUMMARY | 2024-11-12 13:14 | XMS_ITS | Clinical Summary ---
Author Organization [facility], Address [address] [place] [address] Phone Care Team Providers Care Multiple Coil Winder Name Role Phone Herbert Napier MD Primary Care Provider [phone] Allergies Active Allergy Reactions Criticality Noted Date [...] DAILY 1 Active Lancets (OneTouch Delica Plus [id number]) misc USE TO TEST BLOOD GLUCOSE 3 [...] day 30 tablet 3 4 11/01/19 25 Hospital, Clinic, or Other Facility Administered Medication [...] bubba litus 04/01/2013 Overview (12/04/2022): Dr Ndiaye, [facility] Dr Ndiaye, [facility] Immunizations Immunization [...] A1C 9.0(H) 4.8 - 5.9 % APS [facility] PVNMA 02/06/2023 02/07/2023 7:3 8 AM EDT Narrative APS SPECTRA PVNMA - 02/07/2023 Unless otherwise specified, test(s) performed at: [facility], [address] [place] [address] NUT ROASTER: Eduard García M.D. For any questions, please call customer service at FREQUENCY:MONTHLY Resulting Agency Comment Specimen source: Blood Paul Park MD LAB BLOOD BANK TEST ORDERABLE S Final Result [facility]PECT[facility] from Last 3 Months or Most Recently Relevant to Health Maintenance Insurance ([id number]) FOR[facility]LY [facility] One Care Dual SNP ([id number]) Care Teams Multiple Coil Winder Relationship Specialty Start Date End Date Herbert Napier MD [address] PCP - General 07/04/20
--- OUTSIDE RECORDS SUMMARY | 2024-11-12 13:14 | XMS_ITS | Clinical Summary ---
Author Organization [facility] Address [address] [place] [address] Care Team Providers Care Hot Plate Plywood Press Operator Name Role Phone Ricki Porras MD Primary Care Provider [phone] Social History Tobacco Use Types Packs/Day Years [...] Zoster (Shingles) Vaccine (1 of 2) 10/01/2023 COVID-19 Vaccine (6 2023-2 5 season) 2024 04/06/2022, 12/08/2021, 04/28/2021, Additional history exists Influenza Vaccine 01/22/2025 03/30/2022, , 09/25/2018, Additional history exists Insurance MISC MGD MEDICARE OUT OF NETWORK Care Teams Hot Plate Plywood Press Operator Relationship Specialty Start Date End Date Ricki Porras MD [address] [place] [address] [place] [address] PCP - General Nephrology 11/21/23
--- OUTSIDE RECORDS SUMMARY | 2024-11-12 13:14 | XMS_ITS | Encounter Summary ---
Author Organization [facility], Address [address] [address] Phone Care Team Providers Care Machine Heel Seat Laster Name Role Phone Herbert Napier MD Primary Care Provider [phone] Encounter Details Date Type Department Care Team (Late st Contact Info) Description 07/30/2023 Documentation Only [facility], [address] [place] [phone] Torrey Loomis MD [address] [place] [phone] Social History Tobacco Use Types Packs/Day Years [...] on filedocumented in this encounter Care Teams Machine Heel Seat Laster Relationship Specialty Start Date End Date Herbert Napier MD [facility] [address] [place] [address] PCP - General 07/04/20 documented as of this encounter
[2024-11-13 09:14] LABS: Tacrolimus Prograf 7.4 mcg/L
== END 2024-11-12 13:10 | disposition home or self-care (01) ==
LOC: HO.HKASLDS 13:09
PROVIDERS: Visit Provider Internal Medicine Nephrology
DX: Z94.0 Kidney transplant status (principal)
CPT/HCPCS: 36415; 80197

== ENCOUNTER 2024-12-17 14:57 | Outpatient (REF) | payer OTHER, SELFPAY ==
[2024-12-17 17:51] LABS: MANUAL DIFF FLAG NO
[2024-12-17 18:04] LABS: Basophils Percent Auto 0.6 % (0-2); Eosinophils Absolute Auto 0.1 X10*3/uL (0.0-0.4); Eosinophils Percent Auto 1.4 % (0-4); Hematocrit 42.2 % (42.0-52.0); Imm Gran Abs Auto 0.01 X10*3/uL (0.00-0.03); Imm Gran Pct Auto 0.2 % (0.0-0.4); Lymphocytes Absolute Auto 0.9 X10*3/uL (1.2-4.9); Lymphocytes Percent Auto 17.8 % (20-40); Mean Corpuscular HGB Conc 33.2 g/dl (31.0-36.0); Mean Corpuscular Hemoglobin 25.7 pg (27.0-33.0); Mean Corpuscular Volume 77.6 fL (80.0-98.0); Mean Platelet Volume 11.6 fL (9.4-12.4); Monocytes Absolute Auto 0.6 X10*3/uL (0.1-1.2); Monocytes Percent Auto 11.4 % (2-11); Neutrophils Absolute Auto 3.5 x10*3/uL (2.0-8.3); Neutrophils Percent Auto 68.6 % (45-73); Platelet Count 161 X10*3/uL (160-400); Red Blood Count 5.44 X10*6/uL (4.60-5.80); Red Cell Distribution Width 14.6 % (11.0-16.0); White Blood Count 5.2 X10*3/uL (4.8-10.8)
[2024-12-17 18:17] LABS: Alanine Aminotransferase 14 U/L (0-40); Anion Gap 11 (12-20); Aspartate Amino Transferase 14 U/L (5-37); Blood Urea Nitrogen 29 mg/dL (9-16); Calcium 9.2 mg/dL (8.4-10.2); Carbon Dioxide 22 mmol/L (22-29); Chloride 103 mmol/L (96-108); Estimated Glomerular Filt Rate 25; Magnesium 1.9 mg/dL (1.6-2.6); Phosphorus 3.6 mg/dL (2.7-4.5); Potassium 4.3 mmol/L (3.3-5.1); Sodium 132 mmol/L (135-145)
[2024-12-17 18:19] LABS: Parathyroid Hormone Intact 157.4 pg/mL (8.7-77.1)
[2024-12-17 18:31] LABS: Vitamin D 25-OH Total 25.2 ng/mL (>30)
[2024-12-18 10:58] LABS: Tacrolimus Prograf 8.5 mcg/L
== END 2024-12-17 14:58 | disposition home or self-care (01) ==
LOC: HO.HKASLDS 14:57
PROVIDERS: Visit Provider Internal Medicine Nephrology
DX: Z94.0 Kidney transplant status (principal); I10 Essential (primary) hypertension
CPT/HCPCS: 36415; 80051; 80197; 82306; 82310; 82565; 83735; 83970; 84100; 84450; 84460; 84520; 85025

== ENCOUNTER 2025-01-21 12:12 | Outpatient (AMB) | payer OTHER, SELFPAY ==
--- NOTE | 2025-01-21 12:32 | HO.NEPHOV ---
Vital Signs 01/21/25 12:34 Height 5 ft 11 in Weight 223 lb BMI 31.1 BP 118/64 Blood Pressure Location Rt brachial Position Sitting Pulse 101 H Pulse Source Pulse Oximeter Pulse Oximetry (%) 100 Oxygen Delivery Method Room Air Intake Visit Reasons: 2mon Transplant follow-up w/labs-LVM Fishing Worker Required: No Accompanied by: Self / Same As Patient Allergies amoxicillin Allergy (Mild, Verified 01/21/25 12:34) Unknown lisinopril Allergy (Mild, Verified 01/21/25 12:34) Unknown Seasonal Allergies Allergy (Mild, Verified 01/21/25 12:34) Unknown HPI Comments Details: Gregorio was seen in follow-up of his donor renal transplant (06/06/23) . 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 He had no panel reactive antibody. He underwent induction with Thymoglobulin. He had delayed graft function needing for treatments of renal replacement therapy post transplant. His stent was removed on 06/25/2023. His serum creatinine was 2.6 on 08/01/2023. CMV status of the donor and recipient were positive. EBV status of donor and recipient were positive. Hepatitis B core antibody was negative for donor and recipient and hepatitis C antibody was negative for donor and recipient.His polyomavirus Status included BK PCR Quantitative <43 plasma, not detected urine 08/05/23. Transplant renal biopsy was done on 07/22 which showed - Mild interstitial inflammation and mild tubulitis, cannot exclude suspicious for acute T-cell mediated rejection. (see comment) with patchy acute tubular injury with reactive/reparative nuclear change. Glomeruli with no significant microvascular inflammation. Had mild interstitial edema, with no significant fibrosis or tubular atrophy. Arteries and arterioles with no significant change. He had Prospera done on 09/06/2023. DSA was negative on 08/21/23. His immunosuppression included envarsus 3mg taken with ketoconazole 200mg qd & myfortic 720/720mg. His prophylaxis therapy includeed bactrim qd d/kylee 12/06/23 (mycelex d/kylee 09/05/23 )& valcyte qod d/kylee 12/06/23. His BS is well controlled. He has lost weight on Mounjaro. He has been having intermittent dizziness with rise in serum creatinine. [facility] Medical History YEVGENIY (obstructive sleep apnea) Hypertension CHF (congestive heart failure) Asthma A-fib Type 2 diabetes mellitus ESRD (end stage renal disease) Surgical History Kidney transplant status Social History Alcohol intake: former Patient Tobacco Use Status: Former Tobacco user Review of Systems Const All systems reviewed & are unremarkable except as noted in HPI and below Physical Exam Vital Signs: Last Vital Signs Pulse 101 H 01/21/25 12:34 BP 118/64 01/21/25 12:34 Pulse Ox 100 01/21/25 12:34 Oxygen Delivery Method Room Air 01/21/25 12:34 BMI result Body Mass Index 31.1 Const General: comfortable and no acute distress Orientation/consciousness: patient oriented x3 HEENT Head: Yes normocephalic Mouth: Normal oral and palatal mucosa present Eyes EOM: EOMs intact bilaterally Neck Neck: Yes supple Resp Auscultation: clear to auscultation bilaterally Cardio Jugular venous distension: no JVD Rate: regular rate GI Palpation (GI): Soft to palpation Auscultation: normal bowel sounds General: Yes no CVA tenderness Back/Spine/Pelvis Back: no CVA tenderness Skin General skin exam: no rashes or lesions noted Neuro General: patient oriented x3 and moves all extremities Extrem General: Yes no pedal edema Results Reviewed Nephrology Results: Hgb, (14.0-18.0) 14.0 g/dl 12/17/24 WBC, (4.8-10.8) 5.2 X10*3/uL 12/17/24 Plt Count, (160-400) 161 X10*3/uL 12/17/24 Sodium, (135-145) 132 mmol/L L 12/17/24 Potassium, (3.3-5.1) 4.3 mmol/L 12/17/24 Chloride, (96-108) 103 mmol/L 12/17/24 Carbon Dioxide, (22-29) 22 mmol/L 12/17/24 BUN, (9-16) 29 mg/dL H 12/17/24 Creatinine, (0.5-1.4) 2.70 mg/dL H 12/17/24 Calcium, (8.4-10.2) 9.2 mg/dL 12/17/24 Phosphorus, (2.7-4.5) 3.6 mg/dL 12/17/24 PTH Intact, (8.7-77.1) 157.4 pg/mL H 12/17/24 Assessment & Plan Assessment & Plan (1) EDGAR (acute kidney injury): Code(s): N17.9 - Acute kidney failure, unspecified Category: Medical (2) Hypertension: Code(s): I10 - Essential (primary) hypertension Category: Medical Qualifiers: Hypertension type: primary hypertension Qualified Code(s): I10 - Essential (primary) hypertension (3) Renal transplant recipient: Code(s): Z94.0 - Kidney transplant status Category: Surgical Plan 1. Allograft function: Serum creatinine stable ; DSA had been negative ; biopsy negative for rejection in the past; Hold Renal biopsy for now. Tacrolimus levels OK. Management is based on evolving data- does not need biopsy now 2. Immunosuppression: C/W tacro 3 mg 3. BP and volume status: stable; no changes 4. Metabolic parameters: potassium stable 5. Hematologic parameters: hemoglobin is fine; continue to monitor 6. EDGAR due to tubular injury due to drop in BP. Reduced Nifedipine to 30 mg daily Tacro levels 3 weeks and repeat labs in 2 months Orders: Orders Creatinine 4 Weeks I10 - Essential (primary) hypertension, N17.9 - Acute kidney failure, unspecified, Z94.0 - Kidney transplant status Blood Urea Nitrogen 4 Weeks I10 - Essential (primary) hypertension, N17.9 - Acute kidney failure, unspecified, Z94.0 - Kidney transplant status Electrolytes 4 Weeks I10 - Essential (primary) hypertension, N17.9 - Acute kidney failure, unspecified, Z94.0 - Kidney transplant status Tacrolimus Prograf 4 Weeks I10 - Essential (primary) hypertension, N17.9 - Acute kidney failure, unspecified, Z94.0 - Kidney transplant status Coding Level of Care Code Est Pt Level 4 (40304) Diagnoses EDGAR (acute kidney injury) N17.9 Primary hypertension I10 Hypertension type: primary hypertension Renal transplant recipient Z94.0
[2025-01-21 12:34] VITALS: BP 118/64; PULSE 101; O2SAT 100; BMI 31.1
--- OUTSIDE RECORDS SUMMARY | 2025-01-21 12:35 | XMS_ITS ---
Author Name [facility] Organization Unknown Problems Problem Status Onset Date Problem Type Date of Resoluti on Source Complication of transplanted kidney, unspecified complication active [facility] Encounters Encounter Type Encounter Reason Primary Diagnosis Location Date Ambulatory Unspecified complication of kidney transplant Unspecified complication of kidney transplant [facility] 06/22/2024 Ambulatory Unspecified complication of kidney transplant Unspecified complication of kidney transplant [facility] 06/12/2024 Ambulatory Unspecified complication of kidney transplant Unspecified complication of kidney transplant [facility] 06/12/2024 Care Team Organization Name Specialty Phone Email Start Date End Da te [facility] J[facility] 06/15/2024 [facility]AN[facility] JIM[facility] Primary Care 04/28/2024
--- OUTSIDE RECORDS SUMMARY | 2025-01-21 12:35 | XMS_ITS | Encounter Summary ---
Author Organization [facility], Address [address] [address] Phone Care Team Providers Care Behavioral Health Worker Name Role Phone Herbert Napier MD Primary Care Provider [phone] Encounter Details Date Type Department Care Team (Late st Contact Info) Description 07/30/2023 Documentation Only [facility], [address] [place] [phone] Torrey Loomis MD [address] [place] [phone] Social History Tobacco Use Types Packs/Day Years [...] on filedocumented in this encounter Care Teams Behavioral Health Worker Relationship Specialty Start Date End Date Herbert Napier MD [facility] [address] [place] [address] PCP - General 07/04/20 documented as of this encounter
--- OUTSIDE RECORDS SUMMARY | 2025-01-21 12:35 | XMS_ITS | Clinical Summary ---
Author Organization [facility] Address [address] [place] [address] Care Team Providers Care Upholstery Auto Trimmer Name Role Phone Ricki Porras MD Primary Care Provider [phone] Social History Tobacco Use Types Packs/Day Years [...] MGD MEDICARE OUT OF NETWORK Care Teams Upholstery Auto Trimmer Relationship Specialty Start Date End Date Ricki Porras MD [address] [place] [address] [place] [address] PCP - General Nephrology 11/21/23
--- OUTSIDE RECORDS SUMMARY | 2025-01-21 12:35 | XMS_ITS | Clinical Summary ---
Author Organization [facility] Address [address] [place] [address] Phone Care Team Providers Care Software Sales Representative Name Role Phone Paul Alvarez Primary Care Provider [phone] Allergies Active Allergy Reactions Criticality Noted Date [...] Description 10/21/2024 11:20 AM EDT Office Visit [facility] [address] [place] [address] Hakeem Ingram MD Hypertension, unspecified type (Primary Dx); Permanent atrial fibrillation (CMS/HCC V24, CMS/HCC V28) from Last 3 Months Surgical History Surgery Date Site/Laterality Comments CARPAL TUNNEL RELEASE Bilateral PROCEDURE: [place] NEUROPLASTY &/TRANSPOS MEDIAN NRV CARPAL TUNNE CATARACT EXTRACTION PROCEDURE: HISTORICAL CATARACT REMOVAL Medical History Medical History Date Comments 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 (CMS/HCC V24, CMS/HCC V28) DX:Autosomal feliberto nant centronuclear myopathy 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 (HCC) Background diabetic retinopa thy (CMS/HCC V24, [facility] V28) DX:Background diabetic retin opathy ([facility]) Chronic back pain DX:Chronic harsha k pain Stage 5 chronic kidney disea se due to type 2 diabetes mellitus ([facility] V24, [facility] V28) DX:Stage 5 chronic kidney di sease due to type 2 diabetes mellitus ([facility]) Diabetes mellitus without co mplication ([facility] V24, [facility] V28) DX:Diabetes mellitus withou t complication ([facility]) Erectile dysfunction DX:Erectile dysfunction History of medical [...] abscess DX:Prostate abs cess Sickle cell trait ([facility] V24) DX:Sickle cell trait ([facility]) Use of opiates for therapeutic purposes DX:Use of opiates for therapeutic purposes Dialysis patient ([facility] V24) D X:Dialysis patient ([facility]) Leg weakness, bilateral DX:Leg w eakness, bilateral; COMMENT: D/C'd [place] [facility] [place] ESRD on dialysis ([facility] V2 4, [facility] V28) DX:ESRD on dialysis ([facility]); C OMMENT: D/C'd from [facility] 08/22/21 Family History Medical History Relation Name [...] Panel) 06/03/2022 Colorectal Cancer Screening: Colonoscopy 06/03/2022 HIV Screening 06/03/2022 Hepatitis C Screening 06/03/2022 Hypertension/CHF/CAD Annual BMP Blood Test 06/03/2022 Medicare Annual Wellness Visit 06/03/2022 Social Influencers of Health Screening 06/03/2022 Diabetes: Annual Urine Albumin-Creatinine Ratio (uACR) 06/07/2022 Diabetes: Blood Sugar Control Test (HGBA1C) 06/07/2022 COVID-19 Vaccine ( season) 2024 04/06/2022, 12/08/2021, 04/28/2021, Additional history exists Depression Screening 06/24/2024 DTaP,Tdap,and Td Vaccines (2 - Td or Tdap) 09/10/2024 09/10/2014 Influenza Vaccine (#1) 2025 , 03/30/2022, 04/14/2021, Additional history exists MMR Vaccines Aged Out 09/20/2014 No longer eligi ble based on patient's age to complete this topic Hepatitis B Vaccines Completed 03/18/2015, 10/18/2014, 09/17/2014 HIB Vaccines Aged Out No longer eligi [...] GEMUSE QTc 430 ms GEMUSE P Wave [place] 65 degrees GEMUSE R [place] 80 degrees GEMUSE T [place] 63 degrees GEMUSE ECG Interpretation Sinus rhythm with 1st degree A-V block Otherwise normal ECG When compared with ECG of 10-SEP-2015 11:01, MT interval has increased Nonspecific T wave abnormality no longer evident in Lateral leads Confirmed by Dale INGRAM, HAKEEM ([id number]) on 10/21/2024 12:59:30 PM GEMUSE 10/21/2024 11:5 5 AM EDT 10/21/2024 12:59 PM EDT us Hakeem Ingram MD ECG ORDERABLES Final Result GEMUSE from Last 3 Months Insurance [employer] MEDICARE Member Subscriber Plan / Payer (Ef fective 2021-Present) Name:Gregorio Heaton Relation to Subscriber:Self Name:Gregorio Heaton Payer ID:[id number] Group ID:[id number] Type:Not on file Address: [address] [place] [id number] Care Teams Software Sales Representative Relationship Specialty Start Date End Date Paul Alvarez PA [address] [place] [address] PCP - General Internal Medicine 10/21/24
--- OUTSIDE RECORDS SUMMARY | 2025-01-21 12:35 | XMS_ITS | Clinical Summary ---
Author Organization [facility] Address [address] [place] [address] Phone Care Team Providers Care Eco Industrial Development Consultant Name Role Phone Unavailable Primary Care Provider Unavailabl e Social History Tobacco Use Types Packs/Day Years Used Date Smoking Tobacco: Never Assessed Education Answer Date Recorded Are you interested in more education? Not on rosa e 10/19/2022 Are you concerned about learning? Not on file 10/19/2022 No 10/19/2022 No 10/19/2022 Digital Access Answer Date Recorded No 11/20/2022 No 11/20/2022 No 11/20/2022 Reliable internet access at home? Not on file 11/20/2022 Device with a working camera? Not on file Sex and Gender Information Value Date Recorded Sex Assigned at Not on file Legal Sex Male 1:29 PM EDT Gender Identity Not on file Sexual Orientation Not on file Plan of Treatment Not on file Medical Devices Not on file Insurance [facility] [place] [address] [address] HMO O O H[facility] Additional Source Comments The information contained in this document represents components of the legal health record. It is not the complete legal health record.[facility]
== END 2025-01-21 12:55 | disposition home or self-care (01) ==
PROVIDERS: PCP Physician Assistant; Visit Provider Internal Medicine Nephrology
DX: N17.9 Acute kidney failure, unspecified (principal); I10 Essential (primary) hypertension; Z94.0 Kidney transplant status
CPT/HCPCS: 99214

== ENCOUNTER → 2025-01-21 12:12 | Outpatient (BNVA) | payer OTHER, SELFPAY | PROVIDERS: PCP Physician Assistant; Visit Provider Internal Medicine Nephrology | DX: I10 Essential (primary) hypertension (principal); N17.9 Acute kidney failure, unspecified; Z94.0 Kidney transplant status | CPT/HCPCS: 99212 ==

== ENCOUNTER 2025-02-18 14:51 | Outpatient (REF) | payer OTHER, SELFPAY ==
--- OUTSIDE RECORDS SUMMARY | 2025-02-18 15:31 | XMS_ITS | Clinical Summary ---
Author Organization [facility] Address [address] [place] [address] Phone Care Team Providers Care Prepared Foods Team Leader Name Role Phone Unavailable Primary Care Provider [...] file Medical Devices Not on file Insurance [facility] [place] [address] [place] [address] HMO O O HMO O O O [facility] Additional Source Comments The information contained in this document represents components of the legal health record. It is not the complete legal health record.[facility]
--- OUTSIDE RECORDS SUMMARY | 2025-02-18 15:31 | XMS_ITS | Clinical Summary ---
Author Organization [facility], Address [address] [place] [address] Phone Care Team Providers Care Candy Bar Attendant Name Role Phone Herbert Napier MD Primary Care Provider [phone] Allergies Active Allergy Reactions Criticality Noted Date [...] DAILY 1 Active Lancets (OneTouch Delica Plus [id number]) misc USE TO TEST BLOOD GLUCOSE 3 [...] each day 90 tablet 3 4 Active Hospital, Clinic, or Other Facility Administered [...] bubba litus 04/01/2013 Overview (12/04/2022): Dr Ndiaye, [facility] Dr Ndiaye, [facility] Immunizations Immunization Administration Dates Next Due Influenza [...] 88 12/04/2022 10:29 AM EDT Temperature 36.2 C (97.2 F) 12/04/2022 10:29 AM EDT Respiratory Rate 17 04/19/2020 7:48 AM EDT [...] 10/15/2022, Additional history exists Influenza Vaccine (#1) 2025 6, 08/19/2012, 03/01/2009, Additional history exists Pneumococcal Vaccine: Peds ( 0 to 5 Years) and At-Risk Patients (6 to 49 Years) Discontinued 10/02/2018, 05/22/2006 Procedures Procedure Name Priority Date/Time Associated Diagnosis Comments SPECIAL CHEMISTRY Routine 02/06/2023 from Last 3 Months or Most Recently Relevant to Health Maintenance Results * (ABNORMAL) SPECIAL CHEMISTRY (02/06/2023) Hemoglobin A1C 9.0(H) 4.8 - 5.9 % APS [facility] PVNMA 02/06/2023 02/07/2023 7:3 8 AM EDT Narrative APS SPECTRA PVNMA - 02/07/2023 Unless otherwise specified, test(s) performed at: [place] [address] MIXING PICKER TENDER: Eduard García M.D. For any questions, please call customer service at FREQUENCY:MONTHLY Resulting Agency Comment Specimen source: Blood Paul Park MD LAB BLOOD BANK TEST ORDERABLE S Final Result APS SPECTRA PVNMA from Last 3 Months or Most Recently Relevant to Health Maintenance Insurance [facility] ([id number]) [place] [id number] [employer] Dual SNP ([id number]) [place] [id number] Care Teams Candy Bar Attendant Relationship Specialty Start Date End Date Herbert Napier MD [facility] [address] [place] [address] PCP - General 07/04/20
--- OUTSIDE RECORDS SUMMARY | 2025-02-18 15:31 | XMS_ITS | Clinical Summary ---
Author Organization [facility] Address [address] [place] [address] Care Team Providers Care Load Planner Name Role Phone Ricki Porras MD Primary Care Provider [phone] Social History Tobacco Use Types Packs/Day Years [...] (1 of 2) 10/01/2023 COVID-19 Vaccine (6 - 2023-2 5 season) 2024 04/06/2022, 12/08/2021, 04/28/2021, Additional history exists Influenza Vaccine 01/22/2025 03/30/2022, , 09/25/2018, Additional history exists Insurance MISC [facility] MEDICARE OUT OF NETWORK Care Teams Load Planner Relationship Specialty Start Date End Date Ricki Porras MD [address] [place] [address] [place] [address] PCP - General Nephrology 11/21/23
--- OUTSIDE RECORDS SUMMARY | 2025-02-18 15:31 | XMS_ITS | Clinical Summary ---
Author Organization [facility] Address [address] [place] [address] Phone Care Team Providers Care Geriatric Physical Therapist Name Role Phone Paul Alvarez Primary Care Provider Allergies Active Allergy Reactions Criticality Noted Date [...] continue with present medical management and anticoagulation. 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 (HCC) Background diabetic retinopa thy (CMS/HCC V24, CMS/HCC V28) DX:Background diabetic retin opathy (HCC) Chronic back pain DX:Chronic harsha k pain Stage 5 chronic kidney disea se due to type 2 diabetes mellitus (CMS/HCC V24, CMS/HCC V28) DX:Stage 5 chronic kidney di sease due to type 2 diabetes mellitus (HCC) Diabetes mellitus without co mplication (CMS/HCC V24, CMS/HCC V28) DX:Diabetes mellitus withou t complication ([facility]) Erectile dysfunction DX:Erectile dysfunction History of [...] abscess DX:Prostate abs cess Sickle cell trait ([facility] V24) DX:Sickle cell trait ([facility]) Use of opiates for therapeutic purposes DX:Use of opiates for therapeutic purposes Dialysis patient ([facility] V24) D X:Dialysis patient ([facility]) Leg weakness, bilateral DX:Leg w eakness, bilateral; COMMENT: D/C'd from [facility] 08/22/21 ESRD on dialysis ([facility] V2 4, [facility] V28) DX:ESRD on dialysis ([facility]); C OMMENT: D/C'd from [facility] 08/22/21 Family History Medical History Relation Name [...] patient's age to complete this topic Insurance [employer] MEDICARE Member Subscriber Plan / Payer (Ef fective 2021-Present) Name:Gregorio Heaton Relation to Subscriber:Self Name:Gregorio Heaton Payer ID:[id number] Group ID:[id number] Type:Not on file Address: [place] [address] [place] [id number] Care Teams Geriatric Physical Therapist Relationship Specialty Start Date End Date Paul Alvarez PA [address] [place] [address] PCP - General Internal Medicine 10/21/24
--- OUTSIDE RECORDS SUMMARY | 2025-02-18 15:31 | XMS_ITS | Encounter Summary ---
Author Organization [facility], Address [address] [address] Phone Care Team Providers Care Video Arcade Manager Name Role Phone Herbert Napier MD Primary Care Provider [phone] Encounter Details Date Type Department Care Team (Late st Contact Info) Description 07/30/2023 Documentation Only [facility], [address] [place] [phone] Torrey Loomis MD [address] [place] [phone] Social History Tobacco Use Types Packs/Day Years [...] on filedocumented in this encounter Care Teams Video Arcade Manager Relationship Specialty Start Date End Date Herbert Napier MD [facility] [address] [place] [address] PCP - General 07/04/20 documented as of this encounter
[2025-02-18 17:50] LABS: Anion Gap 15 (12-20); Blood Urea Nitrogen 22 mg/dL (9-16); Carbon Dioxide 22 mmol/L (22-29); Chloride 101 mmol/L (96-108); Estimated Glomerular Filt Rate 29; Potassium 4.5 mmol/L (3.3-5.1); Sodium 133 mmol/L (135-145)
[2025-02-19 14:53] LABS: Tacrolimus Prograf 5.8 mcg/L
== END 2025-02-18 14:52 | disposition home or self-care (01) ==
LOC: HO.HKASLDS 14:51
PROVIDERS: Visit Provider Internal Medicine Nephrology
DX: I10 Essential (primary) hypertension (principal); N17.9 Acute kidney failure, unspecified; Z94.0 Kidney transplant status
CPT/HCPCS: 36415; 80051; 80197; 82565; 84520

== ENCOUNTER 2025-02-23 11:51 | Outpatient (AMB) | payer OTHER, SELFPAY ==
--- NOTE | 2025-02-23 11:59 | HO.NEPHOV ---
Vital Signs 02/23/25 12:03 Height 5 ft 11 in Weight 225 lb 2 oz BMI 31.4 BP 116/70 Blood Pressure Location Rt brachial Position Sitting Pulse 79 Pulse Source Pulse Oximeter Pulse Oximetry (%) 99 Oxygen Delivery Method Room Air Intake Visit Reasons: 4wks w labs-LVM Lead Section Supervisor Required: No Accompanied by: Self / Same As Patient Allergies amoxicillin Allergy (Mild, Verified 02/23/25 12:03) Unknown lisinopril Allergy (Mild, Verified 02/23/25 12:03) Unknown Seasonal Allergies Allergy (Mild, Verified 02/23/25 12:03) Unknown HPI Comments Details: Gregorio was seen in follow-up of his donor renal transplant (06/06/23) . 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 He had no panel reactive antibody. He underwent induction with Thymoglobulin. He had delayed graft function needing for treatments of renal replacement therapy post transplant. His stent was removed on 06/25/2023. His serum creatinine was 2.6 on 08/01/2023. CMV status of the donor and recipient were positive. EBV status of donor and recipient were positive. Hepatitis B core antibody was negative for donor and recipient and hepatitis C antibody was negative for donor and recipient.His polyomavirus Status included BK PCR Quantitative <43 plasma, not detected urine 08/05/23. Transplant renal biopsy was done on 07/22 which showed - Mild interstitial inflammation and mild tubulitis, cannot exclude suspicious for acute T-cell mediated rejection. (see comment) with patchy acute tubular injury with reactive/reparative nuclear change. Glomeruli with no significant microvascular inflammation. Had mild interstitial edema, with no significant fibrosis or tubular atrophy. Arteries and arterioles with no significant change. He had Prospera done on 09/06/2023. DSA was negative on 08/21/23. His immunosuppression included envarsus 3mg taken with ketoconazole 200mg qd & myfortic 720/720mg. His prophylaxis therapy includeed bactrim qd d/kylee 12/06/23 (mycelex d/kylee 09/05/23 )& valcyte qod d/kylee 12/06/23. His BS is well controlled. He has lost weight on Mounjaro. He had intermittent dizziness with rise in serum creatinine which is better now. [facility] Medical History YEVGENIY (obstructive sleep apnea) Hypertension CHF (congestive heart failure) Asthma A-fib Type 2 diabetes mellitus ESRD (end stage renal disease) Surgical History Kidney transplant status Social History Alcohol intake: former Patient Tobacco Use Status: Former Tobacco user Review of Systems Const All systems reviewed & are unremarkable except as noted in HPI and below Physical Exam Const General: comfortable and no acute distress Orientation/consciousness: patient oriented x3 HEENT Head: Yes normocephalic Mouth: Normal oral and palatal mucosa present Eyes EOM: EOMs intact bilaterally Neck Neck: Yes supple Resp Auscultation: clear to auscultation bilaterally Cardio Jugular venous distension: no JVD Rate: regular rate GI Palpation (GI): Soft to palpation Auscultation: normal bowel sounds General: Yes no CVA tenderness Back/Spine/Pelvis Back: no CVA tenderness Skin General skin exam: no rashes or lesions noted Neuro General: patient oriented x3 and moves all extremities Extrem General: Yes no pedal edema Results Reviewed Nephrology Results: Hgb, (14.0-18.0) 14.0 g/dl 12/17/24 WBC, (4.8-10.8) 5.2 X10*3/uL 12/17/24 Plt Count, (160-400) 161 X10*3/uL 12/17/24 Sodium, (135-145) 133 mmol/L L 02/18/25 Potassium, (3.3-5.1) 4.5 mmol/L 02/18/25 Chloride, (96-108) 101 mmol/L 02/18/25 Carbon Dioxide, (22-29) 22 mmol/L 02/18/25 BUN, (9-16) 22 mg/dL H 02/18/25 Creatinine, (0.5-1.4) 2.35 mg/dL H 02/18/25 Calcium, (8.4-10.2) 9.2 mg/dL 12/17/24 Phosphorus, (2.7-4.5) 3.6 mg/dL 12/17/24 PTH Intact, (8.7-77.1) 157.4 pg/mL H 12/17/24 Assessment & Plan Assessment & Plan (1) Renal transplant recipient: Code(s): Z94.0 - Kidney transplant status Category: Surgical (2) Hypertension: Code(s): I10 - Essential (primary) hypertension Category: Medical Qualifiers: Hypertension type: primary hypertension Qualified Code(s): I10 - Essential (primary) hypertension Plan 1. Allograft function: Serum creatinine stable ; DSA had been negative ; biopsy negative for rejection in the past; Hold Renal biopsy for now. Tacrolimus levels OK. Management is based on evolving data- does not need biopsy now 2. Immunosuppression: C/W tacro 3 mg 3. BP and volume status: stable; D/Kylee Nifedipine 4. Metabolic parameters: potassium stable 5. Hematologic parameters: hemoglobin is fine; continue to monitor Repeat labs/ Follow up in 1 months Orders: Orders Electrolytes 1 Month I10 - Essential (primary) hypertension, Z94.0 - Kidney transplant status Tacrolimus Prograf 1 Month I10 - Essential (primary) hypertension, Z94.0 - Kidney transplant status Blood Urea Nitrogen 1 Month I10 - Essential (primary) hypertension, Z94.0 - Kidney transplant status Creatinine 1 Month I10 - Essential (primary) hypertension, Z94.0 - Kidney transplant status Coding Level of Care Code Est Pt Level 4 (90849) Diagnoses Renal transplant recipient Z94.0 Primary hypertension I10 Hypertension type: primary hypertension
[2025-02-23 12:03] VITALS: BP 116/70; PULSE 79; O2SAT 99; BMI 31.4
--- OUTSIDE RECORDS SUMMARY | 2025-02-23 13:20 | XMS_ITS | Clinical Summary ---
Author Organization [facility] Address [address] [place] [address] Phone Care Team Providers Care Mapping Analyst Name Role Phone Unavailable Primary Care Provider [...] file Medical Devices Not on file Insurance [facility] [place] [address] [place] [address] HMO O O HMO O O O [facility] Additional Source Comments The information contained in this document represents components of the legal health record. It is not the complete legal health record.[facility]
--- OUTSIDE RECORDS SUMMARY | 2025-02-23 13:20 | XMS_ITS | Clinical Summary ---
Author Organization [facility], Address [address] [place] [address] Phone Care Team Providers Care Forklift Wheel Loader Name Role Phone Herbert Napier MD Primary Care Provider Allergies Active Allergy Reactions [...] DAILY 1 Active Lancets (OneTouch Delica Plus [id number]) misc USE TO TEST BLOOD GLUCOSE 3 [...] bubba litus 04/01/2013 Overview (12/04/2022): Dr Ndiaye, [facility] Dr Ndiaye, [facility] Immunizations Immunization Administration Dates Next Due Influenza [...] A1C 9.0(H) 4.8 - 5.9 % APS [employer] PVNMA 02/06/2023 02/07/2023 7:3 8 AM EDT Narrative APS SPECTRA PVNMA - 02/07/2023 Unless otherwise specified, test(s) performed at: [place] [address] ELECTRICAL AND RADIO AIRCRAFT MECHANIC: Eduard García M.D. For any questions, please call customer service at FREQUENCY:MONTHLY Resulting Agency Comment Specimen source: Blood Paul Park MD LAB BLOOD BANK TEST ORDERABLE S Final Result APS SPECTRA PVNMA from Last 3 Months or Most Recently Relevant to Health Maintenance Insurance [facility] ([id number]) [place] [id number] [employer] Dual SNP ([id number]) [place] [id number] Care Teams Forklift Wheel Loader Relationship Specialty Start Date End Date Herbert Napier MD [facility] [address] [place] [address] PCP - General 07/04/20
--- OUTSIDE RECORDS SUMMARY | 2025-02-23 13:20 | XMS_ITS | Clinical Summary ---
Author Organization [facility] Address [address] [place] [address] Phone Care Team Providers Care Cafe Cook Name Role Phone Paul Alvarez Primary Care Provider [phone] Allergies Active Allergy Reactions Criticality Noted Date [...] Site/Laterality Comments CARPAL TUNNEL RELEASE Bilateral PROCEDURE: [place] NEUROPLASTY &/TRANSPOS MEDIAN NRV CARPAL TUNNE CATARACT [...] CMS/HCC V28) DX:Diabetes mellitus withou t complication ([facility]) Erectile dysfunction DX:Erectile dysfunction History of medical [...] abscess DX:Prostate abs cess Sickle cell trait ([facility] V24) DX:Sickle cell trait ([facility]) Use of opiates for therapeutic purposes DX:Use of opiates for therapeutic purposes Dialysis patient ([facility] V24) D X:Dialysis patient ([facility]) Leg weakness, bilateral DX:Leg w eakness, bilateral; COMMENT: D/C'd from [facility] 08/22/21 ESRD on dialysis ([facility] V2 4, [facility] V28) DX:ESRD on dialysis ([facility]); C OMMENT: D/C'd from [facility] 08/22/21 Family History Medical History Relation Name [...] Diabetes: Blood Sugar Control Test (HGBA1C) 06/07/2022 Depression Screening 06/24/2024 DTaP,Tdap,and Td Vaccines (2 - Td or Tdap) 09/10/2024 09/10/2014 COVID-19 Vaccine ( season) 2025 04/06/2022, 12/08/2021, 04/28/2021, Additional history exists Influenza Vaccine (#1) 2025 , 03/30/2022, 04/14/2021, [...] ID:[id number] Group ID:ICO Type:Not on file Address: [place] [address] [place] [id number] Care Teams Cafe Cook Relationship Specialty Start Date End Date Paul Alvarez PA [address] [place] [address] PCP - General Internal Medicine 10/21/24
--- OUTSIDE RECORDS SUMMARY | 2025-02-23 13:20 | XMS_ITS | Clinical Summary ---
Author Organization [facility] Address [address] [place] [address] Care Team Providers Care Flow Nurse Name Role Phone Ricki Porras MD Primary Care Provider [phone] Social History Tobacco Use Types Packs/Day Years [...] Vaccine (1 of 2) 10/01/2023 COVID-19 Vaccine (2023-2 5 season) 2024 04/06/2022, 12/08/2021, 04/28/2021, Additional history exists Influenza Vaccine 01/22/2025 03/30/2022, , 09/25/2018, Additional history exists Insurance MISC [employer]GD MEDICARE OUT OF NETWORK Care Teams Flow Nurse Relationship Specialty Start Date End Date Ricki Porras MD [address] [place] [address] [place] [address] PCP - General Nephrology 11/21/23
--- OUTSIDE RECORDS SUMMARY | 2025-02-23 13:20 | XMS_ITS | Encounter Summary ---
Author Organization [facility], Address [address] [address] Phone Care Team Providers Care Heel Cover Softener Name Role Phone Herbert Napier MD Primary Care Provider [phone] Encounter Details Date Type Department Care Team (Late st Contact Info) Description 07/30/2023 Documentation Only [facility], [address] [place] [phone] Torrey Loomis MD [address] [place] [phone] Social History Tobacco Use Types Packs/Day Years [...] on filedocumented in this encounter Care Teams Heel Cover Softener Relationship Specialty Start Date End Date Herbert Napier MD [facility] [address] [place] [address] PCP - General 07/04/20 documented as of this encounter
== END 2025-02-23 12:15 | disposition home or self-care (01) ==
LOC: HO.HKAS 11:52
PROVIDERS: PCP Physician Assistant; Visit Provider Internal Medicine Nephrology
DX: Z94.0 Kidney transplant status (principal); I10 Essential (primary) hypertension
CPT/HCPCS: 99214

== ENCOUNTER → 2025-02-23 11:51 | Outpatient (BNVA) | payer OTHER, SELFPAY | PROVIDERS: PCP Physician Assistant; Visit Provider Internal Medicine Nephrology | DX: I10 Essential (primary) hypertension (principal); Z94.0 Kidney transplant status | CPT/HCPCS: 99212 ==

== ENCOUNTER 2025-03-18 13:09 | Outpatient (REF) | payer OTHER, SELFPAY ==
--- OUTSIDE RECORDS SUMMARY | 2025-03-18 17:51 | XMS_ITS | Clinical Summary ---
Author Organization [facility], Address [address] [place] [address] Phone Care Team Providers Care [employer] Assistant Manager Name Role Phone Herbert Napier MD Primary Care Provider [phone] Allergies Active Allergy Reactions Criticality Noted Date [...] DAILY 1 Active Lancets (OneTouch Delica Plus [id number]) misc USE TO TEST BLOOD GLUCOSE 3 [...] bubba litus 04/01/2013 Overview (12/04/2022): Dr Ndiaye, [facility] Dr Ndiaye, [facility] Immunizations Immunization Administration Dates Next Due Influenza [...] A1C 9.0(H) 4.8 - 5.9 % APS [employer] PVNMA 02/06/2023 02/07/2023 7:3 8 AM EDT Narrative APS SPECTRA PVNMA - 02/07/2023 Unless otherwise specified, test(s) performed at: [place] [address] BACTERIOLOGY TEACHER: Eduard García M.D. For any questions, please call customer service at FREQUENCY:MONTHLY Resulting Agency Comment Specimen source: Blood Paul Park MD LAB BLOOD BANK TEST ORDERABLE S Final Result APS SPECTRA PVNMA from Last 3 Months or Most Recently Relevant to Health Maintenance Insurance [facility] ([id number]) [place] [id number] CCA One Care Dual SNP ([id number]) [place] [id number] Care Teams [employer] Assistant Manager Relationship Specialty Start Date End Date Herbert Naiper MD [facility] [address] [place] [address] PCP - General 07/04/20
--- OUTSIDE RECORDS SUMMARY | 2025-03-18 17:51 | XMS_ITS | Encounter Summary ---
Author Organization [facility], Address [address] [address] Phone Care Team Providers Care Margarine Churn Operator Name Role Phone Herbert Napier MD Primary Care Provider [phone] Encounter Details Date Type Department Care Team (Late st Contact Info) Description 07/30/2023 Documentation Only [facility], [address] [place] [phone] Torrey Loomis MD [address] [facility] [place] [phone] Social History Tobacco Use Types Packs/Day Years [...] on filedocumented in this encounter Care Teams Margarine Churn Operator Relationship Specialty Start Date End Date Herbert Napier MD [facility] [address] [place] [address] PCP - General 07/04/20 documented as of this encounter
--- OUTSIDE RECORDS SUMMARY | 2025-03-18 17:51 | XMS_ITS | Clinical Summary ---
Author Organization [facility] Address [address] [place] [address] Care Team Providers Care Environmental Health And Safety Intern Name Role Phone Ricki Porras MD Primary Care Provider [phone] Social History Tobacco Use Types Packs/Day Years [...] Vaccine (1 of 2) 10/01/2023 Influenza Vaccine 01/22/2025 03/30/2022, , 09/25/2018, Additional history exists COVID-19 Vaccine (6 - 2024-2 6 season) 2025 04/06/2022, 12/08/2021, 04/28/2021, Additional history exists Insurance MISC MGD MEDICARE OUT OF NETWORK Care Teams Environmental Health And Safety Intern Relationship Specialty Start Date End Date Ricki Porras MD [address] [place] [address] [place] [address] PCP - General Nephrology 11/21/23
--- OUTSIDE RECORDS SUMMARY | 2025-03-18 17:51 | XMS_ITS | Clinical Summary ---
Author Organization [facility] Address [address] [place] [address] Phone Care Team Providers Care Hydrogen Power Plant Manager Name Role Phone Unavailable Primary Care Provider [...] file Medical Devices Not on file Insurance [facility] [place] [address] [place] [address] HMO O O H[facility] O O [facility] Additional Source Comments The information contained in this document represents components of the legal health record. It is not the complete legal health record.[facility]
[2025-03-18 18:27] LABS: Anion Gap 14 (12-20); Blood Urea Nitrogen 22 mg/dL (9-16); Carbon Dioxide 23 mmol/L (22-29); Chloride 103 mmol/L (96-108); Estimated Glomerular Filt Rate 27; Potassium 4.6 mmol/L (3.3-5.1); Sodium 135 mmol/L (135-145)
[2025-03-19 10:43] LABS: Tacrolimus Prograf 8.4 mcg/L
== END 2025-03-18 13:10 | disposition home or self-care (01) ==
LOC: HO.HKASLDS 13:09
PROVIDERS: Visit Provider Internal Medicine Nephrology
DX: I10 Essential (primary) hypertension (principal); Z94.0 Kidney transplant status
CPT/HCPCS: 36415; 80051; 80197; 82565; 84520

== ENCOUNTER 2025-03-25 12:10 | Outpatient (AMB) | payer OTHER, SELFPAY ==
--- NOTE | 2025-03-25 12:39 | HO.NEPHOV ---
Vital Signs 03/25/25 12:40 Height 5 ft 11 in Weight 230 lb 6 oz BMI 32.1 BP 126/70 Blood Pressure Location Rt brachial Position Sitting Intake Visit Reasons: 1mnth w labs-LVM Dietary Aid Required: No Accompanied by: Self / Same As Patient Allergies amoxicillin Allergy (Mild, Verified 03/25/25 12:40) Unknown lisinopril Allergy (Mild, Verified 03/25/25 12:40) Unknown Seasonal Allergies Allergy (Mild, Verified 03/25/25 12:40) Unknown HPI Comments Details: Gregorio was seen in follow-up of his donor renal transplant (06/06/23) . 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 He had no panel reactive antibody. He underwent induction with Thymoglobulin. He had delayed graft function needing for treatments of renal replacement therapy post transplant. His stent was removed on 06/25/2023. His serum creatinine was 2.6 on 08/01/2023. CMV status of the donor and recipient were positive. EBV status of donor and recipient were positive. Hepatitis B core antibody was negative for donor and recipient and hepatitis C antibody was negative for donor and recipient.His polyomavirus Status included BK PCR Quantitative <43 plasma, not detected urine 08/05/23. Transplant renal biopsy was done on 07/22 which showed - Mild interstitial inflammation and mild tubulitis, cannot exclude suspicious for acute T-cell mediated rejection. (see comment) with patchy acute tubular injury with reactive/reparative nuclear change. Glomeruli with no significant microvascular inflammation. Had mild interstitial edema, with no significant fibrosis or tubular atrophy. Arteries and arterioles with no significant change. He had Prospera done on 09/06/2023. DSA was negative on 08/21/23. His immunosuppression included envarsus 3mg taken with ketoconazole 200mg qd & myfortic 720/720mg. His prophylaxis therapy includeed bactrim qd d/kylee 12/06/23 (mycelex d/kylee 09/05/23 )& valcyte qod d/kylee 12/06/23. His BS is well controlled. He has lost weight on Mounjaro. [facility] Medical History YEVGENIY (obstructive sleep apnea) Hypertension CHF (congestive heart failure) Asthma A-fib Type 2 diabetes mellitus ESRD (end stage renal disease) Surgical History Kidney transplant status Social History Alcohol intake: former Patient Tobacco Use Status: Former Tobacco user Review of Systems Const All systems reviewed & are unremarkable except as noted in HPI and below Physical Exam Vital Signs: Last Vital Signs BP 126/70 03/25/25 12:40 BMI result Body Mass Index 32.1 Const General: comfortable and no acute distress Orientation/consciousness: patient oriented x3 HEENT Head: Yes normocephalic Mouth: Normal oral and palatal mucosa present Eyes EOM: EOMs intact bilaterally Neck Neck: Yes supple Resp Auscultation: clear to auscultation bilaterally Cardio Jugular venous distension: no JVD Rate: regular rate GI Palpation (GI): Soft to palpation Auscultation: normal bowel sounds General: Yes no CVA tenderness Back/Spine/Pelvis Back: no CVA tenderness Skin General skin exam: no rashes or lesions noted Neuro General: patient oriented x3 and moves all extremities Extrem General: Yes no pedal edema Results Reviewed Nephrology Results: Hgb, (14.0-18.0) 14.0 g/dl 12/17/24 WBC, (4.8-10.8) 5.2 X10*3/uL 12/17/24 Plt Count, (160-400) 161 X10*3/uL 12/17/24 Sodium, (135-145) 135 mmol/L 03/18/25 Potassium, (3.3-5.1) 4.6 mmol/L 03/18/25 Chloride, (96-108) 103 mmol/L 03/18/25 Carbon Dioxide, (22-29) 23 mmol/L 03/18/25 BUN, (9-16) 22 mg/dL H 03/18/25 Creatinine, (0.5-1.4) 2.49 mg/dL H 03/18/25 Calcium, (8.4-10.2) 9.2 mg/dL 12/17/24 Phosphorus, (2.7-4.5) 3.6 mg/dL 12/17/24 PTH Intact, (8.7-77.1) 157.4 pg/mL H 12/17/24 Assessment & Plan Assessment & Plan (1) Hypertension: Code(s): I10 - Essential (primary) hypertension Category: Medical Qualifiers: Hypertension type: primary hypertension Qualified Code(s): I10 - Essential (primary) hypertension (2) Renal transplant recipient: Code(s): Z94.0 - Kidney transplant status Category: Surgical Plan 1. Allograft function: Serum creatinine stable ; DSA had been negative ; biopsy negative for rejection in the past; Hold Renal biopsy for now. Tacrolimus levels OK. Management is based on evolving data- does not need biopsy now 2. Immunosuppression: C/W current dose of tacro 3. BP and volume status: stable & is at goal 4. Metabolic parameters: potassium stable 5. Hematologic parameters: hemoglobin is fine; continue to monitor Repeat labs/ Follow up in 2 months Orders: Orders Electrolytes 2 Months I10 - Essential (primary) hypertension, Z94.0 - Kidney transplant status Blood Urea Nitrogen 2 Months I10 - Essential (primary) hypertension, Z94.0 - Kidney transplant status Creatinine 2 Months I10 - Essential (primary) hypertension, Z94.0 - Kidney transplant status Parathyroid Hormone Intact 2 Months I10 - Essential (primary) hypertension, Z94.0 - Kidney transplant status Protein Creatinine Ratio, Ur 2 Months I10 - Essential (primary) hypertension, Z94.0 - Kidney transplant status Tacrolimus Prograf 2 Months I10 - Essential (primary) hypertension, Z94.0 - Kidney transplant status Calcium 2 Months I10 - Essential (primary) hypertension, Z94.0 - Kidney transplant status Vitamin D 25-OH Total 2 Months I10 - Essential (primary) hypertension, Z94.0 - Kidney transplant status Phosphorus 2 Months I10 - Essential (primary) hypertension, Z94.0 - Kidney transplant status Magnesium 2 Months I10 - Essential (primary) hypertension, Z94.0 - Kidney transplant status Coding Level of Care Code Est Pt Level 4 (07967) Diagnoses Primary hypertension I10 Hypertension type: primary hypertension Renal transplant recipient Z94.0
[2025-03-25 12:40] VITALS: BP 126/70; BMI 32.1
--- OUTSIDE RECORDS SUMMARY | 2025-03-25 13:49 | XMS_ITS | Clinical Summary ---
Author Organization [facility] Address [address] [place] [address] Care Team Providers Care Plastic Fabricator Name Role Phone Ricki Porras MD Primary Care Provider [phone] Social History Tobacco Use Types Packs/Day Years [...] MGD MEDICARE OUT OF NETWORK Care Teams Plastic Fabricator Relationship Specialty Start Date End Date Ricki Porras MD [address] [place] [address] [place] [address] PCP - General Nephrology 11/21/23
--- OUTSIDE RECORDS SUMMARY | 2025-03-25 13:49 | XMS_ITS | Clinical Summary ---
Author Organization [facility] Address [address] [place] [address] Phone Care Team Providers Care Supervisor Erection Shop Name Role Phone Unavailable Primary Care Provider [...] file Medical Devices Not on file Insurance [facility] [place] [address] [place] [address] HMO O O * Guarantor: Gregorio Heaton Account Type Relation to Patient Date of Phone Billing Address Personal/Family Self [address] [place] [address] HMO [facility] O [facility] Additional Source Comments The information contained in this document represents components of the legal health record. It is not the complete legal health record.[facility]
--- OUTSIDE RECORDS SUMMARY | 2025-03-25 13:49 | XMS_ITS | Encounter Summary ---
Author Organization [facility], Address [address] [address] Phone Care Team Providers Care Admission Liaison Name Role Phone Herbert Napier MD Primary Care Provider [phone] Encounter Details Date Type Department Care Team (Late st Contact Info) Description 07/30/2023 Documentation Only [facility], [address] [place] [phone] Torrey Loomis MD [address] [facility] [place] [phone] Social History Tobacco Use Types Packs/Day Years [...] on filedocumented in this encounter Care Teams Admission Liaison Relationship Specialty Start Date End Date Herbert Napier MD [facility] [address] [place] [address] PCP - General 07/04/20 documented as of this encounter
--- OUTSIDE RECORDS SUMMARY | 2025-03-25 13:49 | XMS_ITS | Clinical Summary ---
Author Organization [facility], Address [address] [place] [address] Phone Care Team Providers Care [employer] Utility Worker Name Role Phone Herbert Napier MD Primary Care Provider [phone] Allergies Active Allergy Reactions Criticality Noted Date [...] DAILY 1 Active Lancets (OneTouch Delica Plus [id number]) misc USE TO TEST BLOOD GLUCOSE 3 [...] bubba litus 04/01/2013 Overview (12/04/2022): Dr Ndiaye, [facility] Dr Ndiaye, [facility] Immunizations Immunization Administration Dates Next Due Influenza [...] A1C 9.0(H) 4.8 - 5.9 % APS [employer] PVNMA 02/06/2023 02/07/2023 7:3 8 AM EDT Narrative APS SPECTRA PVNMA - 02/07/2023 Unless otherwise specified, test(s) performed at: [place] [address] GAS DISTRIBUTION AND EMERGENCY CLERK: Eduard García M.D. For any questions, please call customer service at FREQUENCY:MONTHLY Resulting Agency Comment Specimen source: Blood Paul Park MD LAB BLOOD BANK TEST ORDERABLE S Final Result APS SPECTRA PVNMA from Last 3 Months or Most Recently Relevant to Health Maintenance Insurance [facility] ([id number]) [place] [id number] [employer] One Care Dual SNP ([id number]) [place]AG[place] [id number] Care Teams [employer] Utility Worker Relationship Specialty Start Date End Date Herbert Napier MD [facility] [address] [place] [address] PCP - General 07/04/20
--- OUTSIDE RECORDS SUMMARY | 2025-03-25 13:49 | XMS_ITS | Clinical Summary ---
Author Organization [facility] [place]) [facility] Address [address] [place] [address] Phone Care Team Providers Care Palletizer Operator Name Role Phone Paul Alvarez Primary Care Provider [phone] Allergies Active Allergy Reactions Criticality Noted Date [...] Site/Laterality Comments CARPAL TUNNEL RELEASE Bilateral PROCEDURE: NV NEUROPLASTY &/TRANSPOS MEDIAN NRV CARPAL TUNNE CATARACT [...] CMS/HCC V28) DX:Diabetes mellitus withou t complication ([facility]) Erectile dysfunction DX:Erectile dysfunction History [...] abscess DX:Prostate abs cess Sickle cell trait ([facility] V24) DX:Sickle cell trait ([facility]) Use of opiates for therapeutic purposes DX:Use of opiates for therapeutic purposes Dialysis patient ([facility] V24) D X:Dialysis patient ([facility]) Leg weakness, bilateral DX:Leg w eakness, bilateral; COMMENT: D/C'd from [facility] 08/22/21 ESRD on dialysis ([facility] V2 4, [facility] V28) DX:ESRD on dialysis ([facility]); C OMMENT: D/C'd from [facility] 08/22/21 Family History Medical History Relation [...] Health Maintenance Due Date Last Done Comments Colorectal Cancer Screening: Colonoscopy 1975 Diabetes: Annual GFR (Glomerular Filtration Rate) 1973 Diabetes: Annual Foot Exam 10/01/1983 Diabetes: Annual Retina Eye Exam 10/01/1983 Hepatitis A Vaccines (1 of 2 - Risk 2-dose series) 1992 Zoster Vaccines (1 of 2) 1992 Pneumococcal Vaccine: 50+ Years (3 of 3 - PCV) 10/03/2019 10/02/2018, 05/22/2006 Cholesterol Screening (Lipid Panel) 06/03/2022 HIV Screening 06/03/2022 Hepatitis C Screening 06/03/2022 Hypertension/CHF/CAD Annual BMP Blood Test 06/03/2022 Medicare Annual Wellness Visit 06/03/2022 Social Influencers of Health Screening 06/03/2022 Diabetes: Annual Urine Albumin-Creatinine Ratio (uACR) 06/07/2022 Diabetes: Blood Sugar Control Test (HGBA1C) 06/07/2022 Depression Screening 06/24/2024 DTaP,Tdap,and Td Vaccines (2 - Td or Tdap) 09/10/2024 09/10/2014 COVID-19 Vaccine ( - season) 2025 04/06/2022, 12/08/2021, 04/28/2021, Additional history exists Influenza Vaccine (#1) 2025 , 03/30/2022, 04/14/2021, Additional history exists RSV Immunization Adult Patients (1 - 1-dose 75+ series) 2048 MMR Vaccines Aged Out 09/20/2014 No longer [...] ID:[id number] Group ID:[id number] Type:Not on file Address: [place] [address] [place] [id number] Care Teams Palletizer Operator Relationship Specialty Start Date End Date Paul Alvarez PA [address] [place] [address] PCP - General Internal Medicine 10/21/24
== END 2025-03-25 12:58 | disposition home or self-care (01) ==
LOC: HO.HKAS 12:11
PROVIDERS: PCP Physician Assistant; Visit Provider Internal Medicine Nephrology
DX: I10 Essential (primary) hypertension (principal); Z94.0 Kidney transplant status
CPT/HCPCS: 99214

== ENCOUNTER → 2025-03-25 12:10 | Outpatient (BNVA) | payer OTHER, SELFPAY | PROVIDERS: PCP Physician Assistant; Visit Provider Internal Medicine Nephrology | DX: I10 Essential (primary) hypertension (principal); Z94.0 Kidney transplant status | CPT/HCPCS: 99212 ==

== ENCOUNTER 2025-05-28 10:49 | Outpatient (REF) | payer OTHER, SELFPAY ==
[2025-05-28 12:14] LABS: Parathyroid Hormone Intact 134.3 pg/mL (8.7-77.1)
[2025-05-28 12:18] LABS: Anion Gap 11 (12-20); Blood Urea Nitrogen 33 mg/dL (9-16); Calcium 9.5 mg/dL (8.4-10.2); Carbon Dioxide 25 mmol/L (22-29); Chloride 105 mmol/L (96-108); Estimated Glomerular Filt Rate 22; Magnesium 1.8 mg/dL (1.6-2.6); Potassium 5.0 mmol/L (3.3-5.1); Sodium 136 mmol/L (135-145)
[2025-05-28 12:46] LABS: Protein/Creatinine Ratio, Ur 0.09 (<0.2); Total Protein Urine Random 11 mg/dL (<12)
[2025-05-29 10:57] LABS: Tacrolimus Prograf 7.7 mcg/L
== END 2025-05-28 10:50 | disposition home or self-care (01) ==
LOC: HO.LAB 10:49
PROVIDERS: Visit Provider Internal Medicine Nephrology
DX: I10 Essential (primary) hypertension (principal); Z94.0 Kidney transplant status; Z13.21 Encounter for screening for nutritional disorder
CPT/HCPCS: 36415; 80051; 80197; 82306; 82310; 82565; 82570; 83735; 83970; 84100; 84156; 84520

== ENCOUNTER 2025-05-31 10:27 | Outpatient (REF) | payer OTHER, SELFPAY ==
[2025-05-31 14:11] LABS: Anion Gap 9 (12-20); Blood Urea Nitrogen 26 mg/dL (9-16); Carbon Dioxide 27 mmol/L (22-29); Chloride 103 mmol/L (96-108); Estimated Glomerular Filt Rate 27; Potassium 4.8 mmol/L (3.3-5.1); Sodium 134 mmol/L (135-145)
== END 2025-05-31 10:28 | disposition home or self-care (01) ==
LOC: HO.HKASLDS 10:27
PROVIDERS: PCP Physician Assistant; Visit Provider Internal Medicine Nephrology
DX: N17.9 Acute kidney failure, unspecified (principal); Z94.0 Kidney transplant status
CPT/HCPCS: 36415; 80051; 82565; 84520

== ENCOUNTER 2025-06-03 13:47 | Outpatient (AMB) | payer OTHER, SELFPAY ==
--- NOTE | 2025-06-03 13:59 | HO.NEPHOV_ITS ---
Vital Signs 06/03/25 14:00 Height 5 ft 11 in Weight 231 lb BMI 32.2 BP 124/80 Blood Pressure Location Rt brachial Position Sitting Pulse 84 Pulse Source Pulse Oximeter Pulse Oximetry (%) 99 Oxygen Delivery Method Room Air Intake Visit Reasons: 2mon Transplant f/u w/labs-LVM Decorating Equipment Setter Required: No Accompanied by: Self / Same As Patient Allergies amoxicillin Allergy (Mild, Verified 06/03/25 13:59) Unknown lisinopril Allergy (Mild, Verified 06/03/25 13:59) Unknown Seasonal Allergies Allergy (Mild, Verified 06/03/25 13:59) Unknown HPI Comments Details: Gregorio was seen in follow-up of his donor renal transplant (06/06/23) . 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 He had no panel reactive antibody. He underwent induction with Thymoglobulin. He had delayed graft function needing for treatments of renal replacement therapy post transplant. His stent was removed on 06/25/2023. His serum creatinine was 2.6 on 08/01/2023. CMV status of the donor and recipient were positive. EBV status of donor and recipient were positive. Hepatitis B core antibody was negative for donor and recipient and hepatitis C antibody was negative for donor and recipient.His polyomavirus Status included BK PCR Quantitative <43 plasma, not detected urine 08/05/23. Transplant renal biopsy was done on 07/22 which showed - Mild interstitial inflammation and mild tubulitis, cannot exclude suspicious for acute T-cell mediated rejection. (see comment) with patchy acute tubular injury with reactive/reparative nuclear change. Glomeruli with no significant microvascular inflammation. Had mild interstitial edema, with no significant fibrosis or tubular atrophy. Arteries and arterioles with no significant change. He had Prospera done on 09/06/2023. DSA was negative on 08/21/23. His immunosuppression included envarsus 3mg taken with ketoconazole 200mg qd & myfortic 720/720mg. His prophylaxis therapy includeed bactrim qd d/kylee 12/06/23 (mycelex d/kylee 09/05/23 )& valcyte qod d/kylee 12/06/23. His BS is well controlled. He has lost weight on Mounjaro. [facility] Medical History YEVGENIY (obstructive sleep apnea) Hypertension CHF (congestive heart failure) Asthma A-fib Type 2 diabetes mellitus ESRD (end stage renal disease) Surgical History Kidney transplant status Social History Alcohol intake: former Patient Tobacco Use Status: Former Tobacco user Review of Systems Const All systems reviewed & are unremarkable except as noted in HPI and below Physical Exam Vital Signs: Last Vital Signs Pulse 84 06/03/25 14:00 BP 124/80 06/03/25 14:00 Pulse Ox 99 06/03/25 14:00 Oxygen Delivery Method Room Air 06/03/25 14:00 BMI result Body Mass Index 32.2 Const General: comfortable and no acute distress Orientation/consciousness: patient oriented x3 HEENT Head: Yes normocephalic Mouth: Normal oral and palatal mucosa present Eyes EOM: EOMs intact bilaterally Neck Neck: Yes supple Resp Auscultation: clear to auscultation bilaterally Cardio Jugular venous distension: no JVD Rate: regular rate GI Palpation (GI): Soft to palpation Auscultation: normal bowel sounds General: Yes no CVA tenderness Back/Spine/Pelvis Back: no CVA tenderness Skin General skin exam: no rashes or lesions noted Neuro General: patient oriented x3 and moves all extremities Extrem General: Yes no pedal edema Results Reviewed Nephrology Results: Hgb, (14.0-18.0) 14.0 g/dl 12/17/24 WBC, (4.8-10.8) 5.2 X10*3/uL 12/17/24 Plt Count, (160-400) 161 X10*3/uL 12/17/24 Sodium, (135-145) 134 mmol/L L 05/31/25 Potassium, (3.3-5.1) 4.8 mmol/L 05/31/25 Chloride, (96-108) 103 mmol/L 05/31/25 Carbon Dioxide, (22-29) 27 mmol/L 05/31/25 BUN, (9-16) 26 mg/dL H 05/31/25 Creatinine, (0.5-1.4) 2.54 mg/dL H 05/31/25 Calcium, (8.4-10.2) 9.5 mg/dL 05/28/25 Phosphorus, (2.7-4.5) 3.5 mg/dL 05/28/25 PTH Intact, (8.7-77.1) 134.3 pg/mL H 05/28/25 Urine Creatinine 126.81 mg/dL 05/28/25 Protein/Creatinin Ratio, (<0.2) 0.09 05/28/25 Assessment & Plan Assessment & Plan (1) Renal transplant recipient: Code(s): Z94.0 - Kidney transplant status Category: Surgical (2) Hypertension: Code(s): I10 - Essential (primary) hypertension Category: Medical Qualifiers: Hypertension type: primary hypertension Qualified Code(s): I10 - Essential (primary) hypertension Plan 1. Allograft function: Serum creatinine stable ; DSA had been negative ; biopsy negative for rejection in the past; Hold Renal biopsy for now. Tacrolimus levels OK. Management is based on evolving data- does not need biopsy now 2. Immunosuppression: C/W current dose of tacro 3. BP and volume status: stable & is at goal 4. Metabolic parameters: On Vitamin D once a week 5. Hematologic parameters: hemoglobin is fine; continue to monitor Repeat labs/ Follow up in 2 months Orders: Orders Electrolytes 2 Months I10 - Essential (primary) hypertension, Z94.0 - Kidney transplant status Calcium 2 Months I10 - Essential (primary) hypertension, Z94.0 - Kidney transplant status Creatinine 2 Months I10 - Essential (primary) hypertension, Z94.0 - Kidney transplant status Phosphorus 2 Months I10 - Essential (primary) hypertension, Z94.0 - Kidney transplant status Aspartate Amino Transferase 2 Months I10 - Essential (primary) hypertension, Z94.0 - Kidney transplant status Protein Creatinine Ratio, Ur 2 Months I10 - Essential (primary) hypertension, Z94.0 - Kidney transplant status Tacrolimus Prograf 2 Months I10 - Essential (primary) hypertension, Z94.0 - Kidney transplant status Complete Blood Count Auto Diff 2 Months I10 - Essential (primary) hypertension, Z94.0 - Kidney transplant status Blood Urea Nitrogen 2 Months I10 - Essential (primary) hypertension, Z94.0 - Kidney transplant status Magnesium 2 Months I10 - Essential (primary) hypertension, Z94.0 - Kidney transplant status Alanine Aminotransferase 2 Months I10 - Essential (primary) hypertension, Z94.0 - Kidney transplant status UA and rflx microscopic 2 Months I10 - Essential (primary) hypertension, Z94.0 - Kidney transplant status Coding Level of Care Code Est Pt Level 4 (23331) Diagnoses Renal transplant recipient Z94.0 Primary hypertension I10 Hypertension type: primary hypertension
[2025-06-03 14:00] VITALS: BP 124/80; PULSE 84; O2SAT 99; BMI 32.2
--- OUTSIDE RECORDS SUMMARY | 2025-06-03 21:06 | XMS_ITS | Clinical Summary ---
Author Organization [facility] Address [address] [place] [address] Care Team Providers Care Horse Stud Manager Name Role Phone Ricki Porras MD Primary Care Provider [phone] Social History Tobacco Use Types Packs/Day Years [...] Risk Dialysis 4-dose series) 1993 Colonoscopy 2018 RSV Vaccine 50 years and old er and Patients (1 - Risk 50-74 years 1-dose series) 10/01/2023 Zoster (Shingles) Vaccine (1 of 2) 10/01/2023 Influenza Vaccine 01/22/2025 03/30/2022, , 09/25/2018, Additional history exists COVID-19 Vaccine ( - 2024-2 6 season) 2025 04/06/2022, 12/08/2021, 04/28/2021, Additional history exists Insurance [facility] MEDIC[facility] OUT OF NETWORK Care Teams Horse Stud Manager Relationship Specialty Start Date End Date Ricki Porras MD [address] [place] [address] Dr Kwok, [place] [id number] PCP - General Nephrology 11/21/23
--- OUTSIDE RECORDS SUMMARY | 2025-06-03 21:06 | XMS_ITS | Clinical Summary ---
Author Organization [facility] Address [address] [place] [id number] Phone Care Team Providers Care Medical Nurse Name Role Phone Unavailable Primary Care Provider [...] file Medical Devices Not on file Insurance [facility] [place] [address] [address] HMO O O HMO O O O [facility] Additional Source Comments The information contained in this document represents components of the legal health record. It is not the complete legal health record.[facility]
--- OUTSIDE RECORDS SUMMARY | 2025-06-03 21:06 | XMS_ITS | Clinical Summary ---
Author Organization [facility] Address [address] [place] [address] Phone Care Team Providers Care Dietary Services Director Name Role Phone Paul Alvarez Primary Care Provider [phone] Allergies Active Allergy Reactions Criticality Noted Date [...] Problem Noted Date Diagnosed Date Atrial fibrillation 10/21/2024 Assessment & Plan (10/21/2024 12:57 PM EDT): Patient with a history of paroxysmal atrial fibrillation. Remains chronically anticoagulated with a dose adjustment based on nephrology recommendations given his renal transplant. Mild HFrEF. No evidence of significant volume overload. Patient will continue with present medical management and anticoagulation. Surgical History Surgery Date Site/Laterality Comments CARPAL TUNNEL RELEASE Bilateral PROCEDURE: [place] NEUROPLASTY &/TRANSPOS MEDIAN NRV CARPAL TUNNE CATARACT [...] CMS/HCC V28) DX:Diabetes mellitus withou t complication (HCC) Erectile dysfunction DX:Erectile dysfunction History of medical [...] abscess DX:Prostate abs cess Sickle cell trait ([facility] [place]24) DX:Sickle cell trait ([facility]) Use of opiates for therapeutic purposes DX:Use of opiates for therapeutic purposes Dialysis patient ([facility] V24) D X:Dialysis patient ([facility]) Leg weakness, bilateral DX:Leg w eakness, bilateral; COMMENT: D/C'd from [facility] 08/22/21 ESRD on dialysis ([facility] V2 4, [facility] V28) DX:ESRD on dialysis ([facility]); C OMMENT: D/C'd from [facility] 08/22/21 Family History Medical History Relation Name [...] Diabetes: Blood Sugar Control Test (HGBA1C) 06/07/2022 RSV Immunization Adult Patients (1 - Risk 50-74 years 1-dose series) 10/01/2023 Depression Screening 06/24/2024 DTaP,Tdap,and Td Vaccines (2 [...] ID:[id number] Group ID:[id number] Type:Not on file Address: [place] [address] [address] [address] Care Teams Dietary Services Director Relationship Specialty Start Date End Date Paul Alvarez PA [address] [place] [address] PCP - General Internal Medicine 10/21/24
== END 2025-06-03 14:24 | disposition home or self-care (01) ==
LOC: HO.HKAS 13:48
PROVIDERS: PCP Physician Assistant; Visit Provider Internal Medicine Nephrology
DX: Z94.0 Kidney transplant status (principal); I10 Essential (primary) hypertension
CPT/HCPCS: 99214

== ENCOUNTER → 2025-06-03 13:47 | Outpatient (BNVA) | payer OTHER, SELFPAY | PROVIDERS: PCP Physician Assistant; Visit Provider Internal Medicine Nephrology | DX: I10 Essential (primary) hypertension (principal); Z94.0 Kidney transplant status; Z79.620 Long term (current) use of immunosuppressive biologic; Z79.899 Other long term (current) drug therapy; Z87.891 Personal history of nicotine dependence | CPT/HCPCS: 99212 ==